=== PATIENT | male | born 1930 | race Caucasian/White ===

== ENCOUNTER → 2016-04-09 | Outpatient (CLI) | payer MEDICARE, OTHER | LOC: RAD 12:22 | PROVIDERS: ATTEND Internal Medicine Medical Oncology | DX: R91.8 Other nonspecific abnormal finding of lung field (principal) | CPT/HCPCS: 71250 ==

== ENCOUNTER → 2016-11-06 | Outpatient (CLI) | payer MEDICARE, OTHER ==
--- NOTE | 2016-11-06 12:38 | RADIOLOGY REPORT (SQ) ---
EXAM DESCRIPTION: CHEST PA/LATERAL COMPLETED DATE/TIME: 11/06/2016 11:58 am REASON FOR STUDY: OTHER NONSPECIFIC ABNORMAL FINDING OF LUNG FIELD COMPARISON: CT abdomen pelvis 11/08/2015 CT chest 02/11/2016, 04/09/2016 EXAM PARAMETERS: NUMBER OF VIEWS: two views TECHNIQUE: Digital Frontal and Lateral radiographic views of the chest acquired. RADIATION DOSE: NA LIMITATIONS: none FINDINGS: LUNGS AND PLEURA: Right middle lobe nodule, in the posterior right costophrenic sulcus see n on CT chest 04/09/2016 is difficult to visualize on the plain films today. In the right posterior costophrenic sulcus, a rounded area of consolidation is present likely round a telectasis. This is similar as compared to CT abdomen pelvis 11/08/2015. On the left side, minimal bandlike scarring or atelectasis is present. No fluffy alveolar infiltrates worrisome for edema or pneumonia. No pleural effusion. No pneumothor ax. MEDIASTINUM AND HILAR STRUCTURES: No masses or contour abnormalities. HEART AND VASCULAR STRUCTURES: Stable cardiomegaly BONES: No acute findings. HARDWARE: None in the chest. OTHER: No other significant finding. IMPRESSION: Right middle lobe nodule, right posterior costophrenic sulcus round atelectasis seen on prior cross-sectional imaging studies are not as well seen on two-view plain films. No acute infiltrates or pleural effusions. No pneumothorax. TECHNICAL DOCUMENTATION: JOB ID: [id number] [employer]- All Rights Reserved
== END ==
LOC: OD 11:30
PROVIDERS: ATTEND Internal Medicine Medical Oncology
DX: R91.8 Other nonspecific abnormal finding of lung field (principal)
CPT/HCPCS: 71020

== ENCOUNTER → 2016-11-25 | Outpatient (CLI) | payer MEDICARE, OTHER ==
--- NOTE | 2016-11-25 15:04 | RADIOLOGY REPORT (SQ) ---
EXAM DESCRIPTION: CT CHEST WITHOUT COMPLETED DATE/TIME: 11/25/2016 1:48 pm REASON FOR STUDY: SOLITARY PULMONARY NODULE (R91.1) R91.1 SOLITARY PULMONARY NODULE COMPARISON: CT abdomen pelvis 11/08/2015 CT chest 02/11/2016, 04/09/2016 TECHNIQUE: CT scan performed of the chest without intravenous contrast. Images reviewed with lung, soft tissue and bone windows. Reconstructed coronal and sagittal MPR images reviewed. All images st ored on PACS. All CT scanners at this facility use dose modulation, iterative reconstruction, and/or weight based d osing when appropriate to reduce radiation dose to as low as reasonably achievable (ALARA). [facility]: Dose Right [facility]: CareDose [facility]: Dose Right [facility]: Teradose 4D [facility]: [employer] RADIATION DOSE: Up-to-date CT equipment and radiation dose reduction techniques were employed. CTDIv ol: 14.1 mGy. DLP: 547 mGy-cm. mGy. LIMITATIONS: No technical limitations. FINDINGS: LUNGS AND PLEURA: There is now nodularity along the left major fissure axial image 65, lef t major fissure axial image 45, along the periphery of the posterior right upper lobe and superior se gment right lower lobe, and along the periphery of the pleura in the left lower posterior chest, new compared to previous exams. Stable rounded atelectasis in the right posterior costophrenic sulcus on axial image 92, 2.4 cm in gr eatest diameter. Stable 8 to 9 mm nodule along the right minor fissure axial image 66. Other smalle r calcified and noncalcified granulomas are present bilaterally, stable. No pleural effusion. No pneumothorax. Airways are patent. HILAR AND MEDIASTINAL STRUCTURES: No identified masses or abnormal nodes. No obvious aneurysm. HEART AND VASCULAR STRUCTURES: No aneurysm. No pericardial effusion. UPPER ABDOMEN: Post left nephrectomy THYROID AND OTHER SOFT TISSUES: No axillary adenopathy. Heterogeneous thyroid, stable BONES: No significant finding. HARDWARE: None in the chest. OTHER: No other significant findings. IMPRESSION: New nodules along the pleural surface left hemithorax. Given history of left nephrectom y, metastatic disease could not be excluded. Consider PET-CT for followup. TECHNICAL DOCUMENTATION: JOB ID: [id number] Quality ID # [id number]: Final reports with documentation of one or more dose reduction techniques (e.g., Au tomated exposure control, adjustment of the mA and/or kV according to patient size, use of iterative reconstruction technique) 2010 [employer]- All Rights Reserved
== END ==
LOC: RAD 13:02
PROVIDERS: ATTEND Urology
DX: R91.1 Solitary pulmonary nodule (principal)
CPT/HCPCS: 71250

== ENCOUNTER → 2016-11-26 | Outpatient (CLI) | payer MEDICARE, OTHER ==
--- NOTE | 2016-11-26 16:01 | RADIOLOGY REPORT (SQ) ---
EXAM DESCRIPTION: CT ABD/PELVIS WITH IV ONLY COMPLETED DATE/TIME: 11/26/2016 3:27 pm REASON FOR STUDY: PANCREATIC CYST/RENAL CYST N28.1 CYST OF KIDNEY, ACQUIRED COMPARISON: CT chest 11/25/2016, 04/09/2016, 02/11/2016 CT abdomen pelvis 11/08/2015 TECHNIQUE: CT scan of the abdomen and pelvis performed using helical scanning technique with dynamic intravenous contrast injection. No oral contrast. Images reviewed with lung, soft tissue, and bone windows. Reconstructed coronal and sagittal MPR images reviewed. Delayed images for evaluation of the urinary system also acquired. All images stored on PACS. All CT scanners at this facility use dose modulation, iterative reconstruction, and/or weight based d osing when appropriate to reduce radiation dose to as low as reasonably achievable (ALARA). [facility]: Dose Right [facility]: CareDose [facility]: Dose Right [facility]: Teradose 4D [facility]: [email or web address] CONTRAST TYPE AND DOSE: contrast/concentration: Isovue 370.00 mg/ml; Total Contrast Delivered: 39.0 ml; Total Saline Delivered: 62.0 ml RENAL FUNCTION: Creatinine 1.6 RADIATION DOSE: Up-to-date CT equipment and radiation dose reduction techniques were employed. CTDIv ol: 12.7 - 14.8 mGy. DLP: 1400 mGy-cm.. LIMITATIONS: None. FINDINGS: LOWER CHEST: No change from yesterday CT chest. New nodules along the lower hemithorax pl eural surface. Given history of left nephrectomy metastatic disease could not be excluded. LIVER: Normal size. No masses. No dilated ducts. SPLEEN: Normal size. No focal lesions. PANCREAS: No masses. No significant calcifications. No adjacent inflammation or peripancreatic fluid collections. Pancreatic duct not dilated. 16 mm cyst along the posterior aspect of the uncinate proc ess, 9 to 10 mm cyst along the ventral aspect of the uncinate. These findings are unchanged from 10/15. GALLBLADDER: No identified stones by CT criteria. No inflammatory changes to suggest cholecystitis. ADRENAL GLANDS: No significant masses or asymmetry. RIGHT KIDNEY AND URETER: No solid masses. Multiple nonenhancing cysts in the right kidney, the large st is 7 cm along the right lower pole. No significant calcifications. No hydronephrosis or hydrour eter. LEFT KIDNEY AND URETER: Post left nephrectomy. No recurrent masses in the left renal fossa AORTA AND VESSELS: No aneurysm. No dissection. Renal arteries, SMA, celiac without stenosis. RETROPERITONEUM: No retroperitoneal hemorrhage. Adjacent to the left proximal common iliac artery, a 2.3 x 1.4 cm lymph node is present (was 1.9 x 1.2 cm on 11/08/2015). BOWEL AND PERITONEAL CAVITY: No masses or inflammatory changes. No free fluid or peritoneal masses. APPENDIX: Normal. PELVIS: Lymph nodes as follows: right external iliac 2.1 x 1.6 cm lymph node is present on axial image 65 (was less than 1 cm on 10/15). left external iliac 2.8 x 2 cm lymph node is present (was 2.2 by 1.1 cm size on 11/08/2015). right inguinal 3.1 x 1.5 cm lymph node is present (was 2.2 x 0.8 cm on 11/08/2015). Left inguinal lymph node 2.9 x 1.4 cm (was 2.2 by 1 cm on 11/08/2015). ABDOMINAL WALL: No masses. No hernias. BONES: Advanced degenerative disc changes lower lumbar spine. Advanced facet arthropathy. Central c anal stenosis at L4-5. OTHER: No other significant finding. IMPRESSION: Stable pancreatic and right renal cysts. Increase in size of bilateral inguinal and bilateral external iliac and left internal iliac region ly mph nodes New pleural based nodules left lower hemithorax. TECHNICAL DOCUMENTATION: JOB ID: [id number] Quality ID # [id number]: Final reports with documentation of one or more dose reduction techniques (e.g., Au tomated exposure control, adjustment of the mA and/or kV according to patient size, use of iterative reconstruction technique) 2010 [employer]- All Rights Reserved
== END ==
LOC: RAD 14:29
PROVIDERS: ATTEND Urology
DX: N28.1 Cyst of kidney, acquired (principal)
CPT/HCPCS: 74177; 82565

== ENCOUNTER → 2016-12-21 | Outpatient (CLI) | payer MEDICARE, OTHER ==
--- NOTE | 2016-12-23 13:55 | RADIOLOGY REPORT (SQ) ---
EXAM DESCRIPTION: PET CT SKULL/THIGH COMPLETED DATE/TIME: 12/21/2016 8:31 pm REASON FOR STUDY: ABNORMAL FINDINGS OF LUNG FIELD R91.8 OTHER NONSPECIFIC ABNORMAL FINDING OF LUNG FIELD COMPARISON: CT chest 11/25/2016, 04/09/2016, 02/11/2016 CT abdomen pelvis 11/26/2016, 11/08/2015 RADIONUCLIDE AND DOSE: 10.5 mCi F18 FDG The route of agent administration: Intravenous FASTING BLOOD SUGAR: 97 mg/dl CONTRAST TYPE AND DOSE: No CT contrast given. TECHNIQUE: Blood glucose level was verified. Above dose of FDG was injected intravenously. 2-D seg mented attenuation correction images were obtained from the base of the skull to the midthighs. Nonc ontrast CT images were obtained for attenuation correction and fusion with emission images. CT image s were performed without oral or intravenous contrast and are not sensitive for parenchymal lesions. A series of overlapping emission PET images were obtained. Images reviewed and manipulated at [facility] work station by the radiologist. Images stored on PACS. LIMITATIONS: None. FINDINGS: HEAD AND NECK: No areas of abnormal metabolic activity in the soft tissues of the head and neck. CHEST: No hypermetabolic nodules are seen in the right hemithorax. A 2.4 cm soft tissue nodule in th e right posterior costophrenic sulcus unchanged from multiple previous studies is non metabolic and l ikely represents rounded atelectasis. 9 mm nodule in the medial right middle lobe axial image 102 is non metabolic. There is a trace left pleural effusion. There is minimal metabolic activity at baseline, along left posterior costophrenic sulcus pleura, and a 1.7 cm nodule along the inferior aspect left major fissur e image 100, and a posterior pleural-based nodule 12 mm size axial image 86. ABDOMEN AND PELVIS: Small pancreatic cyst along the ventral and dorsal aspects of the uncinate proces s are non metabolic. Non metabolic right renal cortical cyst 7 cm in diameter. No metabolic activit y along the left nephrectomy bed. Essentially non metabolic bilateral external iliac and inguinal lymph nodes are present, unchanged in size compared to 11/26/2016. PROXIMAL LOWER EXTREMITIES: No areas of abnormal metabolic activity in the soft tissues of the lower extremities. BONES: No abnormal metabolic activity in the visualized skeleton. ADDITIONAL CT FINDINGS: Cardiomegaly. Diffuse degenerative changes throughout the cervicothoracic an d lumbar spine. OTHER: Blood pool SUV 1.9. Liver SUV 2.1 IMPRESSION: No hypermetabolic lesions in the right hemithorax Trace left pleural effusion with lumpy pleural thickening along the left hemithorax. There is minima l baseline metabolic activity in these areas. Non metabolic bilateral mildly enlarged external iliac and inguinal lymph nodes. TECHNICAL DOCUMENTATION: JOB ID: [id number] [employer]- All Rights Reserved
== END ==
LOC: RAD 18:00
PROVIDERS: ATTEND Internal Medicine Medical Oncology
DX: R91.8 Other nonspecific abnormal finding of lung field (principal)
CPT/HCPCS: 78815; A9552

== ENCOUNTER → 2017-06-21 | Outpatient (CLI) | payer MEDICARE, OTHER ==
--- NOTE | 2017-06-22 08:56 | RADIOLOGY REPORT (SQ) ---
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 TECHNIQUE: Blood glucose level was verified. Above dose of FDG was injected intravenously. 2-D seg mented attenuation correction images were obtained from the base of the skull to the midthighs. Nonc ontrast CT images were obtained for attenuation correction and fusion with emission images. CT image s were performed without oral or intravenous contrast and are not sensitive for parenchymal lesions. A series of overlapping emission PET images were obtained. Images reviewed and manipulated at [facility] work station by the radiologist. Images stored on PACS. LIMITATIONS: None. FINDINGS: HEAD AND NECK: No areas of abnormal metabolic activity in the soft tissues of the head and neck. CHEST: On the right side, a stable 9 mm non metabolic middle lobe nodule and non metabolic 2.4 cm den sity in the right posterior costophrenic sulcus are present, unchanged. There is a trace right pleural effusion, new compared to previous exams. No metabolically active rig ht pleural nodules are identified. On the left side, a loculated moderate-sized left pleural effusion is present with multiple pleural-b ased nodules which exhibit metabolic activity as follows: 3.6 x 3 cm mass abutting the upper left mediastinum along the prevascular region, SUV 5.2 Left posterior costophrenic sulcus 9 x 2.4 cm soft tissue mass image 130, SUV 3.6 Left lateral costophrenic sulcus 2.8 x 2.5 cm nodule image 146, SUV 3.2 There is a new right hilar lymph node about 1 cm in size with SUV 6.3. ABDOMEN AND PELVIS: No areas of abnormal metabolic activity in the abdomen or pelvis. Expected physi ologic activity is present in the genitourinary system and bowel. PROXIMAL LOWER EXTREMITIES: No areas of abnormal metabolic activity in the soft tissues of the lower extremities. BONES: No abnormal metabolic activity in the visualized skeleton. ADDITIONAL CT FINDINGS: Benign cyst along the pancreatic head and right renal cortex. Old left nephr ectomy without recurrent nodules or abnormal metabolic activity. Cardiomegaly with pacemaker. Diffu se degenerative disc changes lumbar spine. OTHER: Liver background activity 1.96 SUV, blood pool background activity 1.7 SUV IMPRESSION: Loculated moderate left pleural effusion with partial collapse of the left lower lobe. There are now hypermetabolic masses along the pleural surface as above. New trace right pleural effusion without hypermetabolic pleural nodules New right hilar 1 cm hypermetabolic lymph node No metabolic activity over the left post nephrectomy fossa. TECHNICAL DOCUMENTATION: JOB ID: [id number] [employer]- All Rights Reserved Reading location - IP/workstation name: [email or web address]
== END ==
LOC: RAD 16:28
PROVIDERS: ATTEND Internal Medicine Medical Oncology
DX: C64.2 Malignant neoplasm of left kidney, except renal pelvis (principal); J90 Pleural effusion, not elsewhere classified
CPT/HCPCS: 78815; A9552

== ENCOUNTER 2017-07-01 08:52 | Inpatient (IN) | payer MEDICARE, OTHER ==
[2017-07-01 09:56] LABS: HEMATOCRIT 31.2 % (37.9-51.0); HEMOGLOBIN 9.9 g/dL (13.5-17.0); MEAN CORPUSCULAR HEMOGLOBIN 28.2 pg (27.0-33.4); MEAN CORPUSCULAR HGB CONC 31.7 g/dL (32.0-36.0); MEAN CORPUSCULAR VOLUME 89 fl (80-97); PLATELET COUNT 389 10^3/uL (150-450); RED BLOOD COUNT 3.51 10^6/uL (4.35-5.55); WHITE BLOOD COUNT 8.9 10^3/uL (4.0-10.5)
[2017-07-01 10:09] LABS: INTERNATIONAL RATION (INR) 1.09; PROTHROMBIN TIME 14.7 SEC (11.4-15.4)
[2017-07-01 10:10] LABS: PARTIAL THROMBOPLASTIN TIME 37.8 SEC (23.5-35.8)
[2017-07-01 10:12] LABS: BLOOD UREA NITROGEN 58 mg/dL (7-20)
[2017-07-01] MEDS ORDERED: LIDOCAINE 1% INJ-PF (10 MG/ML) 30 ML SDV ONE (10:41)
--- NOTE | 2017-07-01 12:27 | RADIOLOGY REPORT (SQ) ---
EXAM DESCRIPTION: CHEST SINGLE VIEW COMPLETED DATE/TIME: 07/01/2017 11:36 am REASON FOR STUDY: S/P LEFT THORACENTESIS COMPARISON: PET-CT 06/21/2017. No prior radiographs from recently. FINDINGS: Single-view chest, presumably upright but not labeled. AP image. Small left basilar hydropneumothorax. Small right pleural fluid. Bibasilar airspace disease, consolidation. IMPRESSION: Small left hydropneumothorax. TECHNICAL DOCUMENTATION: JOB ID: [id number] Reading location - IP/workstation name: [email or web address]
--- NOTE | 2017-07-01 14:57 | RADIOLOGY REPORT (SQ) ---
EXAM DESCRIPTION: CHEST SINGLE VIEW COMPLETED DATE/TIME: 07/01/2017 1:52 pm REASON FOR STUDY: 2 HOURS S/P LEFT THORACENTESIS COMPARISON: 07/01/2017 1132 hours EXAM PARAMETERS: NUMBER OF VIEWS: One view. TECHNIQUE: Single frontal radiographic view of the chest acquired. RADIATION DOSE: NA LIMITATIONS: None. FINDINGS: LUNGS AND PLEURA: Increase in left apical and basilar pneumothorax, now about 15%. Patien t is comfortable, maintaining O2 sats on 3 L of nasal cannula oxygen. We will obtain a 4 hour follow -up film to assess stability of the pneumothorax. No re-accumulation of left pleural fluid. Pleural based left sided nodules are evident. There is le ft basilar consolidation likely atelectasis. On the right side, a small pleural effusion and right middle and lower lobe airspace disease is prese nt, new compared to 06/21/2017. MEDIASTINUM AND HILAR STRUCTURES: No masses. Contour normal. HEART AND VASCULAR STRUCTURES: Stable mild cardiomegaly BONES: No acute findings. HARDWARE: None in the chest. OTHER: No other significant finding. IMPRESSION: Slight increase in left pneumothorax on 2 hour delayed post thoracentesis images. Follo w-up film in 2 more hours will be obtained. Right middle and lower lobe consolidation, increase compared to PET-CT on 06/21/2017. TECHNICAL DOCUMENTATION: JOB ID: [id number] [employer]- All Rights Reserved Reading location - IP/workstation name: [email or web address]
--- NOTE | 2017-07-01 15:11 | PDOC CONSULTATION ---
Consultation Consult Date: 07/01/17 Attending physician:: AMELIA LOCO Consult reason:: Pneumothorax left chest; malignant pleural effusion left chest History of Present Illness Admission Date/PCP: MIRIAM GARCÍA MD History of Present Illness: AISSATOU IVERSON is a 86 year old male The patient is an 86-year-old white male with history of COPD, metastatic renal cell carcinoma, with malignant left pleural effusion, and intra-parenchymal and pleural metastases, who underwent thoracentesis by Dr. Fransisca Palacios earlier today. 1.4 L of malignant effusion evacuated. Patient had a residual pneumothorax, 10% initially, which was followed by a chest x-ray 3 hours later showing an expansion to 20%. Patient has remained hemodynamically stable, and chronically short of breath, but clinically improved compared to prethoracentesis. Surgery was consulted for opinion regarding management of left pneumothorax, and malignant effusion. Past Medical History Cardiac Medical History: Reports: Atrial Fibrillation, Hypertension Denies: Coronary Artery Disease, Myocardial Infarction Pulmonary Medical History: Reports: Pneumonia Denies: Asthma, Bronchitis, Chronic Obstructive Pulmonary Disease (COPD) Neurological Medical History: Denies: Seizures Musculoskeltal Medical History: Reports: Arthritis - "a little bit" Hematology: Reports: Anemia - Currently on Iron Past Surgical History Past Surgical History: Reports: Other - Skin lesion from back removed Social History Smoking Status: Never Smoker Family History Family History: None Parental Family History Reviewed: Yes Children Family History Reviewed: Yes Sibling(s) Family History Reviewed.: Yes Medication/Allergy Home Medications: Amlodipine Besylate [Norvasc 10 mg Tablet] 10 mg PO DAILY 07/01/17 Clobetasol Propionate [Temovate 0.05% Cream 15 Gm] 1 applic TP DAILY 07/01/17 Finasteride 5 mg PO DAILY 07/01/17 Iron mg PO DAILY 07/01/17 Ketotifen Fumarate [Refresh] 5 ml OP DAILY 07/01/17 Latanoprost [Xalatan 0.005% Oph Soln 2.5 ml] 1 drop OP QHS 07/01/17 Levothyroxine Sodium [Tirosint] 25 mcg PO DAILY 07/01/17 Rivaroxaban [Xarelto 15 mg Tablet] 15 mg PO DAILY 07/01/17 Vit A/Vit C/Vit E/Zinc/Copper [Preservision Areds Tablet] 1 each PO DAILY Allergies/Adverse Reactions: No Known Allergies Allergy (Verified 07/01/17 09:20) Review of Systems ROS unobtainable: Other - Shortness of time interviewing patient Physical Exam Vital Signs: Temp Pulse Resp BP Pulse Ox 98.0 F 60 32 H 123/57 L 94 07/01/17 11:40 07/01/17 13:45 07/01/17 13:45 07/01/17 13:45 07/01/17 13:45 Intake & Output 06/30/17 07/01/17 07/02/17 06:59 06:59 06:59 Weight 99.79 kg General appearance: PRESENT: mild distress Head exam: PRESENT: normocephalic Eye exam: PRESENT: EOMI Neck exam: PRESENT: other - Left subclavian scar consistent with pacer placed 1 month ago. Respiratory exam: PRESENT: accessory muscle use - Accessory muscle utilization. Breath sounds are slightly decreased on the left., retraction, other - Obvious shortness of breath with accessory muscle Cardiovascular exam: PRESENT: RRR GI/Abdominal exam: PRESENT: other - Soft no peritoneal signs. Musculoskeletal exam: PRESENT: other - Marked lower extremity edema with lichenified tissue Psychiatric exam: PRESENT: appropriate affect Results Laboratory Results: 07/01/17 09:35 07/01/17 09:35 07/01/17 07/01/17 09:35 09:35 WBC 8.9 RBC 3.51 L Hgb 9.9 L Hct 31.2 L MCV 89 MCH 28.2 MCHC 31.7 L RDW 17.0 H Plt Count 389 BUN 58 H Creatinine 2.18 H Est GFR ( Amer) 35 L Est GFR (Non-Af Amer) 29 L Impressions: Chest X-Ray 07/01/17 00:00 IMPRESSION: Slight increase in left pneumothorax on 2 hour delayed post thoracentesis images. Follow-up film in 2 more hours will be obtained. Right middle and lower lobe consolidation, increase compared to PET-CT on 2017. Assessment & Plan - Diagnosis (1) Metastatic renal cell carcinoma to lung Qualifiers: Laterality: left Qualified Code(s): C78.02 - Secondary malignant neoplasm of left lung; C64.9 - Malignant neoplasm of unspecified kidney, except renal pelvis; C64.9 - Malignant neoplasm of unspecified kidney, except renal pelvis; C64.9 - Malignant neoplasm of unspecified kidney, except renal pelvis; C64.9 - Malignant neoplasm of unspecified kidney, except renal pelvis Is this a current diagnosis for this admission?: Yes Plan: Patient is a status post left thoracentesis with evacuation 1.4 L of malignant effusion for respiratory distress; clinically improved; procedure resulted in left pneumothorax, slightly expanded on serial chest x-ray. Recommendations: 1. Currently the patient feels better according to his report; reliability of patient's somewhat uncertain. There is no immediate indication for a chest tube insertion right now. 2. I suggest the patient be admitted to the hospitalist service for observation given his advanced age, uncertain social situation, and the acute pulmonary situation at hand. 3. I discussed the above with Dr. Nation, radiologist, as well as Dr. Villeda , surgical list today. If patient deteriorates clinically, will need an emergent chest tube. Ideally, we can bridge the patient over until tomorrow which time he may be a candidate for Pleurx catheter insertion. - Time Time Spent: 30 to 50 Minutes Smoking Cessation Education: 3 to 10 minutes Anticipated discharge: Home - Inpatient Certification Based on my medical assessment, after consideration of the patient's comorbidities, presenting symptoms, or acuity I expect that the services needed warrant INPATIENT care.: Yes I certify that my determination is in accordance with my understanding of Medicare's requirements for reasonable and necessary INPATIENT services [42 CFR 412.3e].: Yes Medical Necessity: Other - Repeat chest x-ray, possible chest tube insertion if pulmonary status deteriorates
--- NOTE | 2017-07-01 15:48 | RADIOLOGY REPORT (SQ) ---
EXAM DESCRIPTION: U/S THORACENTESIS WITH IMAGING COMPLETED DATE/TIME: 07/01/2017 11:24 am REASON FOR STUDY: PLEURAL EFFUSION R91.8 OTHER NONSPECIFIC ABNORMAL FINDING OF LUNG FIELD Z79.01 L RUDDY TERM (CURRENT) USE OF ANTICOAGULANTS COMPARISON: CT chest 11/25/2016 PET-CT 12/21/2016, 06/21/2017 LIMITATIONS: None. PROCEDURE: Procedure, risks, benefit, and alternative explained to patient who then gave written con sent. The posterior left chest wall was marked using ultrasound guidance. A time-out was called for correct marking verification. Chest prepped and draped using sterile technique. Local anesthesia ac hieved using 6 mL ml of 1% lidocaine injection. A 6fr Safe-T- Centesis set was introduced into the l eft posterior pleural space. Fluid was aspirated. The catheter was removed and the entry site was c overed with sterile bandage. Fluid was sent for cytology. Post procedure chest x-ray dictated separately shows a small left post procedure pneumothorax. Images acquired during the procedure were stored on PACS. FINDINGS: ENTRY SITE: Left posterior pleural space FLUID VOLUME: 1400 mL of cloudy serosanguineous fluid FLUID ANALYSIS: Yes, sent for cytology OTHER: Postprocedure chest film dictated separately shows a small left post procedure pneumothorax IMPRESSION: SUCCESSFUL THORACENTESIS USING ULTRASOUND GUIDANCE. COMMENT: Patient medication list reviewed: Yes- Quality ID# [id number]:Eligible professional attests to doc umenting in the medical record they obtained, updated, or reviewed the patient's current medications. TECHNICAL DOCUMENTATION: JOB ID: [id number] [employer]- All Rights Reserved Reading location - IP/workstation name: [email or web address]
--- NOTE | 2017-07-01 16:12 | RADIOLOGY REPORT (SQ) ---
EXAM DESCRIPTION: CHEST SINGLE VIEW COMPLETED DATE/TIME: 07/01/2017 3:41 pm REASON FOR STUDY: post thoracentesis- 4 HOUR FILM COMPARISON: 07/01/2017 at 1130 hours, 07/01/2017 1349 hours EXAM PARAMETERS: NUMBER OF VIEWS: One view. TECHNIQUE: Single frontal radiographic view of the chest acquired. RADIATION DOSE: NA LIMITATIONS: None. FINDINGS: LUNGS AND PLEURA: Further increase in left-sided apical pneumothorax, now about 20%. Find ings discussed with Dr. Villeda from surgery. Patient will be admitted through the hospitalist [facility], with left chest tube placed later today. Dense consolidation right middle and lower lobe, similar compared to films from earlier today, new co mpared to PET-CT 06/21/2017. MEDIASTINUM AND HILAR STRUCTURES: No masses. Contour normal. HEART AND VASCULAR STRUCTURES: Stable cardiomegaly BONES: No acute findings. HARDWARE: None in the chest. OTHER: No other significant finding. IMPRESSION: 20% left pneumothorax. Findings discussed with Dr. Villeda from surgery, who plans to p lace a small caliber left chest tube later today TECHNICAL DOCUMENTATION: JOB ID: [id number] [employer]- All Rights Reserved Reading location - IP/workstation name: [email or web address]
[2017-07-01] MEDS ORDERED: LIDOCAINE 0.5% INJ-PF (5 MG/ML) 50 ML SDV ONE (16:51)
--- NOTE | 2017-07-01 17:29 | Operative Report ---
Operative Report DATE OF SURGERY: 07/01/17 PREOPERATIVE DIAGNOSIS: Malignant left pleural effusion POSTOPERATIVE DIAGNOSIS: Same with 20% pneumothorax left chest OPERATION: Insertion of percutaneous Heimlich chest tube and interpretation of intraoperative chest x-ray SURGEON: BRANDON BOB ANESTHESIA: Local TISSUE REMOVED OR ALTERED: None COMPLICATIONS: None ESTIMATED BLOOD LOSS: Scant INTRAOPERATIVE FINDINGS: Below PROCEDURE: Patient was set in the upright position, left chest exposed. He was explained the planned procedure for chest tube insertion, Heimlich small caliber tube. He expresses understanding and agreed to proceed. Surgical plan surgical timeout conducted Left chest wall below the subclavian area was prepped and draped sterile fashion. Skin was anesthetized at ICS 6, including the intercostal tissues. A small mary was made skin with 11 blade, narrow Heimlich chest tube approximately 14-gauge was threaded into the left chest uneventfully. Trocar removed, chest tube to Pleur-evac suction. Air evacuated successfully. This tube secured to the skin with 0 silk suture, and dressing. OpSite applied. Approximately 150 cc of serosanguineous fluid drained from the left chest. Portable upright chest x-ray showed excellent position of the tube in the left lateral chest, with evacuation of pneumothorax. Patient tolerated procedure well. He was taken to the floor in stable condition. He maintained good saturations and heart
[2017-07-01] MEDS ORDERED: LEVALBUTEROL HCL NEB 1.25 MG/3 ML AMPUL NEB PRN (17:32)
--- NOTE | 2017-07-01 17:35 | RADIOLOGY REPORT (SQ) ---
EXAM DESCRIPTION: CHEST SINGLE VIEW COMPLETED DATE/TIME: 07/01/2017 5:21 pm REASON FOR STUDY: CHEST TUBE INSERTION COMPARISON: 07/01/2017 EXAM PARAMETERS: NUMBER OF VIEWS: One view. TECHNIQUE: Single frontal radiographic view of the chest acquired. RADIATION DOSE: NA LIMITATIONS: None. FINDINGS: LUNGS AND PLEURA: There has been interval decrease in size of the pneumothorax on the left status post placement of a chest tube. Bibasilar airspace consolidation is again identified and I c annot exclude an associated pleural effusion on the right MEDIASTINUM AND HILAR STRUCTURES: No masses. Contour normal. HEART AND VASCULAR STRUCTURES: The configuration of the heart and mediastinal structures is unchanged BONES: No acute findings. HARDWARE: Transvenous pacemaker is unchanged in position. Status post placement of a left-sided ches t tube. OTHER: No other significant finding. IMPRESSION: Interval decrease in size of the pneumothorax on the left status post placement of chest tube. Bibasilar airspace consolidation is again identified. I cannot exclude an associated right p leural effusion. Other findings as noted above. TECHNICAL DOCUMENTATION: JOB ID: [id number] [employer]- All Rights Reserved Reading location - IP/workstation name: [email or web address]
--- NOTE | 2017-07-01 17:47 | PDOC H&P ---
History of Present Illness Admission Date/PCP: 07/01/17 08:52 MIRIAM GARCÍA MD Oncologist: Dr. Sullivan Patient complains of: Shortness of breath cough fever History of Present Illness: AISSATOU IVERSON is a 86 year old male with Past medical history of Renal cell cancer status post left nephrectomy Multiple lung nodules Recurrent left-sided pleural effusions. Hypertension Hypothyroidism BPH Chronic anticoagulation with Xarelto for DVT prevention He was in the ambulatory surgical unit today to get a CT-guided lung biopsy. He was found to have a large left pleural effusion and was hypoxic on room air with sats in the 70s. A thoracentesis was performed with a drainage of 1400 cc of fluid. Postprocedure chest x-ray showed a small apical pneumothorax. He has been satting 91-93% on 3 L. Chest x-ray also showed new right upper lobe infiltrate. The patient reports 2 days of cough with expectoration fevers and chills and worsening shortness of breath. He had thoracentesis done in March and May of this year and [facility]. Plan is to put a left-sided chest tube and by the surgical service. Outpatient medications: Finasteride 5 mg daily Iron daily Norvasc 10 mg daily PreserVision daily Refresh daily Clobetasol cream daily Synthroid 25 mcg daily Xalatan 1 drop at bedtime Xarelto 15 mg daily PET scan done on June 21, 2017 showed moderate left pleural effusion with partial collapse of the left lower lobe with new hypermetabolic masses along the pleural surface Past Medical History Cardiac Medical History: Reports: Hypertension Denies: Coronary Artery Disease, Myocardial Infarction Pulmonary Medical History: Reports: Pneumonia Denies: Asthma, Bronchitis, Chronic Obstructive Pulmonary Disease (COPD) Neurological Medical History: Denies: Seizures Endocrine Medical History: Reports: Hypothyroidism Malignancy Medical History: Reports: Renal (Kidney) Cancer Musculoskeltal Medical History: Reports: Arthritis - "a little bit" Hematology: Reports: Anemia - Currently on Iron Past Surgical History Past Surgical History: Reports: Other - Skin lesion from back removed Social History Smoking Status: Former Smoker Frequency of Alcohol Use: None Family History Family History: Hypertension Parental Family History Reviewed: Yes Children Family History Reviewed: Yes Sibling(s) Family History Reviewed.: Yes Medication/Allergy Home Medications: Amlodipine Besylate [Norvasc 10 mg Tablet] 10 mg PO DAILY 07/01/17 Clobetasol Propionate [Temovate 0.05% Cream 15 Gm] 1 applic TP DAILY 07/01/17 Finasteride 5 mg PO DAILY 07/01/17 Iron mg PO DAILY 07/01/17 Ketotifen Fumarate [Refresh] 5 ml OP DAILY 07/01/17 Latanoprost [Xalatan 0.005% Oph Soln 2.5 ml] 1 drop OP QHS 07/01/17 Levothyroxine Sodium [Tirosint] 25 mcg PO DAILY 07/01/17 Rivaroxaban [Xarelto 15 mg Tablet] 15 mg PO DAILY 07/01/17 Vit A/Vit C/Vit E/Zinc/Copper [Preservision Areds Tablet] 1 each PO DAILY Allergies/Adverse Reactions: No Known Allergies Allergy (Verified 07/01/17 09:20) Review of Systems Constitutional: PRESENT: chills, fever(s) Eyes: ABSENT: visual disturbances Ears: ABSENT: hearing changes Nose, Mouth, and Throat: ABSENT: sore throat Cardiovascular: ABSENT: chest pain Respiratory: PRESENT: cough, dyspnea, sputum. ABSENT: hemoptysis Gastrointestinal: ABSENT: abdominal pain, diarrhea, vomiting Genitourinary: ABSENT: dysuria Musculoskeletal: ABSENT: deformity Integumentary: ABSENT: pruritus Neurological: ABSENT: focal weakness, syncope Psychiatric: ABSENT: hallucinations Endocrine: ABSENT: heat intolerance Hematologic/Lymphatic: ABSENT: easy bruising Physical Exam Vital Signs: Temp Pulse Resp BP Pulse Ox 98.0 F 59 L 28 H 111/50 L 95 07/01/17 11:40 07/01/17 16:15 07/01/17 16:15 07/01/17 16:15 07/01/17 16:15 Intake & Output 06/30/17 07/01/17 07/02/17 06:59 06:59 06:59 Weight 99.79 kg General appearance: PRESENT: mild distress, well-developed, well-nourished Head exam: PRESENT: normocephalic Eye exam: PRESENT: PERRLA. ABSENT: scleral icterus Ear exam: PRESENT: normal external ear exam Mouth exam: PRESENT: moist Neck exam: ABSENT: tenderness, tracheal deviation Respiratory exam: PRESENT: crackles, symmetrical, wheezes Cardiovascular exam: PRESENT: RRR GI/Abdominal exam: PRESENT: normal bowel sounds, soft. ABSENT: tenderness Rectal exam: PRESENT: deferred Extremities exam: PRESENT: pedal edema, other - chronic venous stasis changes bilateral lower extremities. ABSENT: calf tenderness Neurological exam: PRESENT: alert, awake, oriented to person, oriented to place , oriented to time Psychiatric exam: PRESENT: appropriate affect Skin exam: ABSENT: petechiae Results Laboratory Results: 07/01/17 09:35 07/01/17 09:35 07/01/17 07/01/17 09:35 09:35 WBC 8.9 RBC 3.51 L Hgb 9.9 L Hct 31.2 L MCV 89 MCH 28.2 MCHC 31.7 L RDW 17.0 H Plt Count 389 BUN 58 H Creatinine 2.18 H Est GFR ( Amer) 35 L Est GFR (Non-Af Amer) 29 L Impressions: Thoracentesis Ultrasound 07/01/17 00:00 IMPRESSION: SUCCESSFUL THORACENTESIS USING ULTRASOUND GUIDANCE. Chest X-Ray 07/01/17 15:30 IMPRESSION: 20% left pneumothorax. Findings discussed with Dr. Villeda from surgery, who plans to place a small caliber left chest tube later today Assessment & Plan - Diagnosis (1) Lung mass Is this a current diagnosis for this admission?: Yes Plan: management per Oncologist (2) Recurrent left pleural effusion Is this a current diagnosis for this admission?: Yes Plan: Chest tube per Surgeon (3) Right middle lobe pneumonia Is this a current diagnosis for this admission?: Yes Plan: Sputum culture, antibiotics (4) Hypertension Is this a current diagnosis for this admission?: Yes Plan: Monitor, continue Norvasc (5) BPH (benign prostatic hyperplasia) Is this a current diagnosis for this admission?: Yes Plan: Finasteride (6) DVT prophylaxis Is this a current diagnosis for this admission?: Yes Plan: Lovenox s/c - Time Time Spent: Greater than 70 Minutes - Inpatient Certification Medical Necessity: Significant Comorbidiites Make Outpatient Treatment Too Risky , Risk of Complication if Not Cared For in Hospital
[2017-07-01] MEDS ORDERED: CEFTRIAXONE 1 GM/D5W RTU 50 ML IV SCH (18:00)
[2017-07-01] MEDS ORDERED: ENOXAPARIN SODIUM INJ 30 MG/0.3 ML DISP.SYRIN SUBCUT ONE (20:00)
[2017-07-01] MEDS: LEVALBUTEROL HCL NEB 0.63 MG/3 ML AMPUL NEB SCH (21:12)
[2017-07-01] MEDS: GUAIFENESIN 600 MG TABLET.SA PO SCH (22:24)
[2017-07-01] MEDS: LATANOPROST 0.005% OPH SOLN 2.5 ML OP SCH (22:25)
[2017-07-01] MEDS: LACTOBACILLUS ACIDOPHILUS 250 MG TAB PO SCH (22:25)
[2017-07-01] MEDS: LEVOFLOXACIN 750 MG/D5W RTU 750 MG/150 ML RTUPB IV SCH (22:26)
[2017-07-01] MEDS: CEFTRIAXONE SODIUM 1,000 MG in NORMAL SALINE 100 ML IV SCH (23:55)
[2017-07-02] MEDS: LEVALBUTEROL HCL NEB 0.63 MG/3 ML AMPUL NEB SCH ×5 (00:26→20:36)
[2017-07-02] MEDS: LANSOPRAZOLE 15 MG TAB.RAP.DR PO SCH (05:49)
[2017-07-02 06:03] LABS: ABSOLUTE BASOPHILS # (AUTO) 0.1 10^3/uL (0.0-0.2); ABSOLUTE LYMPHOCYTES (AUTO) 0.9 10^3/uL (0.5-4.7); ABSOLUTE MONOCYTES (AUTO) 0.7 10^3/uL (0.1-1.4); ABSOLUTE NEUT (AUTO) 12.4 10^3/uL (1.7-8.2); BASOPHILS % (AUTO) 0.8 % (0-2); EOSINOPHILS % (AUTO) 0.3 % (0-6); HEMATOCRIT 32.4 % (37.9-51.0); HEMOGLOBIN 10.2 g/dL (13.5-17.0); LYMPHOCYTES % (AUTO) 6.4 % (13-45); MEAN CORPUSCULAR HEMOGLOBIN 28.1 pg (27.0-33.4); MEAN CORPUSCULAR HGB CONC 31.5 g/dL (32.0-36.0); MEAN CORPUSCULAR VOLUME 89 fl (80-97); MONOCYTES % (AUTO) 5.1 % (3-13); RED BLOOD COUNT 3.63 10^6/uL (4.35-5.55); RED CELL DISTRIBUTION WIDTH 16.6 % (11.5-14.0); SEGMENTED NEUTROPHILS % (AUTO) 87.4 % (42-78); TOTAL CELLS COUNTED % (AUTO) 100 %; WHITE BLOOD COUNT 14.2 10^3/uL (4.0-10.5)
[2017-07-02 06:31] LABS: PLATELET COUNT 358 10^3/uL (150-450)
[2017-07-02 06:53] LABS: ALANINE AMINOTRANSFERASE 26 U/L (21-72); ALKALINE PHOSPHATASE 106 U/L (38-126); ANION GAP 11 (5-19); ASPARTATE AMINO TRANSFERASE 19 U/L (17-59); BILIRUBIN,DIRECT 0.3 mg/dL (0.0-0.4); BILIRUBIN,TOTAL 0.3 mg/dL (0.2-1.3); BLOOD UREA NITROGEN 54 mg/dL (7-20); CALCIUM 8.8 mg/dL (8.4-10.2); CARBON DIOXIDE 28 mmol/L (22-30); CHLORIDE 109 mmol/L (98-107); GLUCOSE 114 mg/dL (75-110); PHOSPHORUS 3.5 mg/dL (2.5-4.5); POTASSIUM 4.8 mmol/L (3.6-5.0); SODIUM 148.3 mmol/L (137-145); TOTAL PROTEIN 5.8 g/dL (6.3-8.2)
[2017-07-02] MEDS ORDERED: LEVOTHYROXINE SODIUM 25 MCG PO SCH (10:00)
[2017-07-02] MEDS ORDERED: (PENDING PHARMACY ID) (Ketotifen Fumarate [Refresh] 5 ML) OP SCH (10:00)
[2017-07-02] MEDS ORDERED: AMLODIPINE BESYLATE 10 MG TABLET PO SCH ×2 (10:00)
[2017-07-02] MEDS ORDERED: (PENDING PHARMACY ID) (Vit A/Vit C/Vit E/Zinc/Copper [Preservision Areds Tablet] 1 EACH) PO SCH (10:00)
[2017-07-02] MEDS: LACTOBACILLUS ACIDOPHILUS 250 MG TAB PO SCH ×2 (10:24→22:49)
[2017-07-02] MEDS: CLOBETASOL PROPIONATE 0.05% CREAM 15 GM TP SCH (10:25)
[2017-07-02] MEDS: FINASTERIDE 5 MG TABLET PO SCH (10:25)
[2017-07-02] MEDS: GUAIFENESIN 600 MG TABLET.SA PO SCH ×2 (10:25→22:49)
[2017-07-02] MEDS: ENOXAPARIN SODIUM INJ 30 MG/0.3 ML DISP.SYRIN SUBCUT SCH (10:25)
--- NOTE | 2017-07-02 12:04 | PDOC PROGRESS REPORT ---
Subjective Progress Note for:: 07/02/17 Subjective:: Feels a bit better today. had trouble sleeping last night. We reviewed his diagnoses and plan of care extensively. Dr. Garcia consulted. Reason For Visit: R91.8 OTHER NONSPECIFIC ABNORMAL FINDING OF LUNG F Physical Exam Vital Signs: Temp Pulse Resp BP Pulse Ox 98.0 F 60 16 105/71 94 07/02/17 11:07 07/02/17 11:07 07/02/17 11:07 07/02/17 11:07 07/02/17 11:07 Pulse Oximeter Continuous Start: 07/01/17 17: 32 Freq: RTQ4 Status: Active Document 07/02/17 09:00 [facility] (Rec: 07/02/17 09:05 [facility] [email or web address]) Pulse Oximetry Assessment Oxygen Saturation (92-100) 94 Oxygen Flow Rate (L/min) 4 Oxygen Delivery Method Nasal Cannula Equipment Usage Equipment in Use Continuous SpO2 Machine # [id number] Intake & Output 07/01/17 07/02/17 07/03/17 06:59 06:59 06:59 Intake Total 1620 Output Total 750 0 Balance 870 0 Weight 87.1 kg General appearance: PRESENT: no acute distress Head exam: PRESENT: normocephalic Eye exam: PRESENT: PERRLA. ABSENT: scleral icterus Ear exam: PRESENT: normal external ear exam Mouth exam: PRESENT: moist Neck exam: ABSENT: carotid bruit, tenderness Respiratory exam: PRESENT: symmetrical, other - Crackles R base, decreased breath sounds Left base. ABSENT: tachypnea Cardiovascular exam: PRESENT: RRR GI/Abdominal exam: PRESENT: normal bowel sounds, soft. ABSENT: tenderness Rectal exam: PRESENT: deferred Extremities exam: PRESENT: other - chronic venous stasis changes bilateral legs. ABSENT: calf tenderness, pedal edema Neurological exam: PRESENT: alert, awake, oriented to person, oriented to place , oriented to time, oriented to situation Psychiatric exam: PRESENT: appropriate affect Skin exam: ABSENT: petechiae Results Laboratory Results: 07/02/17 05:09 07/02/17 06:31 07/02/17 07/02/17 07/02/17 05:09 05:09 05:09 WBC 14.2 H RBC 3.63 L Hgb 10.2 L Hct 32.4 L MCV 89 MCH 28.1 MCHC 31.5 L RDW 16.6 H Plt Count 358 Seg Neutrophils % 87.4 H Lymphocytes % 6.4 L Monocytes % 5.1 Eosinophils % 0.3 Basophils % 0.8 Absolute Neutrophils 12.4 H Absolute Lymphocytes 0.9 Absolute Monocytes 0.7 Absolute Eosinophils 0.0 Absolute Basophils 0.1 Sodium Cancelled Potassium Cancelled Chloride Cancelled Carbon Dioxide Cancelled Anion Gap Cancelled BUN Cancelled Creatinine Cancelled Est GFR ( Amer) Cancelled Est GFR (Non-Af Amer) Cancelled Glucose Cancelled Calcium Cancelled Phosphorus Cancelled Magnesium Cancelled Total Bilirubin Cancelled AST Cancelled ALT Cancelled Alkaline Phosphatase Cancelled Total Protein Cancelled Albumin Cancelled TSH Cancelled 07/02/17 07/02/17 06:31 06:31 WBC RBC Hgb Hct MCV MCH MCHC RDW Plt Count Seg Neutrophils % Lymphocytes % Monocytes % Eosinophils % Basophils % Absolute Neutrophils Absolute Lymphocytes Absolute Monocytes Absolute Eosinophils Absolute Basophils Sodium 148.3 H Potassium 4.8 Chloride 109 H Carbon Dioxide 28 Anion Gap 11 BUN 54 H Creatinine 1.88 H Est GFR ( Amer) 41 L Est GFR (Non-Af Amer) 34 L Glucose 114 H Calcium 8.8 Phosphorus 3.5 Magnesium 2.7 H Total Bilirubin 0.3 AST 19 ALT 26 Alkaline Phosphatase 106 Total Protein 5.8 L Albumin 3.0 L TSH 3.78 07/02/17 07/02/17 05:09 06:31 NT-Pro-B Natriuret Pep Cancelled 8420 H Impressions: Thoracentesis Ultrasound 07/01/17 00:00 IMPRESSION: SUCCESSFUL THORACENTESIS USING ULTRASOUND GUIDANCE. Chest X-Ray 07/01/17 15:30 IMPRESSION: 20% left pneumothorax. Findings discussed with Dr. Villeda from surgery, who plans to place a small caliber left chest tube later today Assessment & Plan - Diagnosis (1) Lung mass Is this a current diagnosis for this admission?: Yes Plan: ? metastatic renal cancer. Management per Oncologist (2) Recurrent left pleural effusion Is this a current diagnosis for this admission?: Yes Plan: Chest tube management by surgical service. Plan for Pleurx drain on discharge. (3) Right middle lobe pneumonia Is this a current diagnosis for this admission?: Yes Plan: Sputum culture, day 2 of Rocephin and Levaquin. (4) Hypertension Is this a current diagnosis for this admission?: Yes Plan: Monitor, continue Norvasc (5) BPH (benign prostatic hyperplasia) Is this a current diagnosis for this admission?: Yes Plan: Finasteride (6) DVT prophylaxis Is this a current diagnosis for this admission?: Yes Plan: Lovenox s/c (7) Insomnia Is this a current diagnosis for this admission?: Yes Plan: Melatonin and temazepam at bedtime. - Time Time Spent with patient: 35 or more minutes
--- NOTE | 2017-07-02 17:13 | RADIOLOGY REPORT (SQ) ---
EXAM DESCRIPTION: CHEST SINGLE VIEW COMPLETED DATE/TIME: 07/02/2017 5:01 pm REASON FOR STUDY: follow up lft pneumothorax COMPARISON: None. EXAM PARAMETERS: NUMBER OF VIEWS: One view. TECHNIQUE: Single frontal radiographic view of the chest acquired. RADIATION DOSE: NA LIMITATIONS: None. FINDINGS: LUNGS AND PLEURA: No definite residual pneumothorax on the left is identified. Previously described bibasilar densities appear essentially unchanged. MEDIASTINUM AND HILAR STRUCTURES: No masses. Contour normal. HEART AND VASCULAR STRUCTURES: Cardiac silhouette is partially obscured but appears unchanged BONES: No acute findings. HARDWARE: Left chest tube is unchanged in position. Transvenous pacemaker is unchanged in position OTHER: No other significant finding. IMPRESSION: No definite residual pneumothorax on the left is identified. Bibasilar densities appear essentially unchanged. Other findings as noted above TECHNICAL DOCUMENTATION: JOB ID: [id number]- All Rights Reserved Reading location - IP/workstation name: [email or web address]
[2017-07-02] MEDS: MELATONIN 5 MG TABLET PO SCH (22:48)
[2017-07-02] MEDS: TEMAZEPAM 7.5 MG CAPSULE PO SCH (22:48)
[2017-07-02] MEDS: LATANOPROST 0.005% OPH SOLN 2.5 ML OP SCH (23:02)
[2017-07-02] MEDS: CEFTRIAXONE SODIUM 1,000 MG in NORMAL SALINE 100 ML IV SCH (23:07)
--- NOTE | 2017-07-03 01:22 | PDOC PROGRESS REPORT ---
Subjective Progress Note for:: 07/02/17 Subjective:: no pains Reason For Visit: R91.8 OTHER NONSPECIFIC ABNORMAL FINDING OF LUNG F Physical Exam Vital Signs: Temp Pulse Resp BP Pulse Ox 98.0 F 60 20 125/89 H 89 L 07/02/17 20:37 07/02/17 20:37 07/02/17 20:37 07/02/17 20:37 07/02/17 20:37 Pulse Oximeter Continuous Start: 07/01/17 17: 32 Freq: RTQ4 Status: Active Document 07/02/17 20:35 [facility] (Rec: 07/02/17 21:18 [facility] [email or web address]) Pulse Oximetry Assessment Oxygen Saturation (92-100) 94 Oxygen Flow Rate (L/min) 4 Oxygen Delivery Method Nasal Cannula Equipment Usage Equipment in Use Continuous SpO2 Machine # 14 Intake & Output 07/01/17 07/02/17 07/03/17 06:59 06:59 06:59 Intake Total 1620 978 Output Total 750 225 Balance 870 753 Weight 87.1 kg Exam: left chest tube with no air leak Results Laboratory Results: 07/02/17 05:09 07/02/17 06:31 07/02/17 07/02/17 07/02/17 05:09 05:09 05:09 WBC 14.2 H RBC 3.63 L Hgb 10.2 L Hct 32.4 L MCV 89 MCH 28.1 MCHC 31.5 L RDW 16.6 H Plt Count 358 Seg Neutrophils % 87.4 H Lymphocytes % 6.4 L Monocytes % 5.1 Eosinophils % 0.3 Basophils % 0.8 Absolute Neutrophils 12.4 H Absolute Lymphocytes 0.9 Absolute Monocytes 0.7 Absolute Eosinophils 0.0 Absolute Basophils 0.1 Sodium Cancelled Potassium Cancelled Chloride Cancelled Carbon Dioxide Cancelled Anion Gap Cancelled BUN Cancelled Creatinine Cancelled Est GFR ( Amer) Cancelled Est GFR (Non-Af Amer) Cancelled Glucose Cancelled Calcium Cancelled Phosphorus Cancelled Magnesium Cancelled Total Bilirubin Cancelled AST Cancelled ALT Cancelled Alkaline Phosphatase Cancelled Total Protein Cancelled Albumin Cancelled TSH Cancelled 07/02/17 07/02/17 06:31 06:31 WBC RBC Hgb Hct MCV MCH MCHC RDW Plt Count Seg Neutrophils % Lymphocytes % Monocytes % Eosinophils % Basophils % Absolute Neutrophils Absolute Lymphocytes Absolute Monocytes Absolute Eosinophils Absolute Basophils Sodium 148.3 H Potassium 4.8 Chloride 109 H Carbon Dioxide 28 Anion Gap 11 BUN 54 H Creatinine 1.88 H Est GFR ( Amer) 41 L Est GFR (Non-Af Amer) 34 L Glucose 114 H Calcium 8.8 Phosphorus 3.5 Magnesium 2.7 H Total Bilirubin 0.3 AST 19 ALT 26 Alkaline Phosphatase 106 Total Protein 5.8 L Albumin 3.0 L TSH 3.78 07/02/17 07/02/17 05:09 06:31 NT-Pro-B Natriuret Pep Cancelled 8420 H Impressions: Thoracentesis Ultrasound 07/01/17 00:00 IMPRESSION: SUCCESSFUL THORACENTESIS USING ULTRASOUND GUIDANCE. Chest X-Ray 07/02/17 00:00 IMPRESSION: No definite residual pneumothorax on the left is identified. Bibasilar densities appear essentially unchanged. Other findings as noted above Assessment & Plan - Time Time Spent with patient: 15-24 minutes - Plan Summary Plan Summary: Plan to d/c left chest tube if no pneumo on cxRay tomorrow.
[2017-07-03] MEDS: LEVOTHYROXINE SODIUM 0.025 MG TABLET PO SCH (07:03)
[2017-07-03] MEDS: LANSOPRAZOLE 15 MG TAB.RAP.DR PO SCH (07:03)
[2017-07-03] MEDS: LEVALBUTEROL HCL NEB 0.63 MG/3 ML AMPUL NEB SCH ×4 (08:01→19:44)
[2017-07-03 08:11] LABS: ABSOLUTE EOSINOPHILS # (AUTO) 0.1 10^3/uL (0.0-0.6); ABSOLUTE LYMPHOCYTES (AUTO) 0.8 10^3/uL (0.5-4.7); ABSOLUTE MONOCYTES (AUTO) 0.5 10^3/uL (0.1-1.4); ABSOLUTE NEUT (AUTO) 7.5 10^3/uL (1.7-8.2); BASOPHILS % (AUTO) 0.5 % (0-2); EOSINOPHILS % (AUTO) 0.9 % (0-6); HEMATOCRIT 31.4 % (37.9-51.0); HEMOGLOBIN 9.9 g/dL (13.5-17.0); LYMPHOCYTES % (AUTO) 8.6 % (13-45); MEAN CORPUSCULAR HEMOGLOBIN 28.3 pg (27.0-33.4); MEAN CORPUSCULAR HGB CONC 31.6 g/dL (32.0-36.0); MEAN CORPUSCULAR VOLUME 89 fl (80-97); PLATELET COUNT 362 10^3/uL (150-450); RED CELL DISTRIBUTION WIDTH 16.8 % (11.5-14.0); TOTAL CELLS COUNTED % (AUTO) 100 %
[2017-07-03 08:20] LABS: ALANINE AMINOTRANSFERASE 25 U/L (21-72); ALBUMIN 2.9 g/dL (3.5-5.0); ALKALINE PHOSPHATASE 104 U/L (38-126); ANION GAP 9 (5-19); ASPARTATE AMINO TRANSFERASE 17 U/L (17-59); BILIRUBIN,DIRECT 0.2 mg/dL (0.0-0.4); BILIRUBIN,TOTAL 0.2 mg/dL (0.2-1.3); BLOOD UREA NITROGEN 43 mg/dL (7-20); CARBON DIOXIDE 31 mmol/L (22-30); CHLORIDE 107 mmol/L (98-107); GLUCOSE 108 mg/dL (75-110); POTASSIUM 5.1 mmol/L (3.6-5.0); SODIUM 146.8 mmol/L (137-145); TOTAL PROTEIN 5.6 g/dL (6.3-8.2)
[2017-07-03] MEDS: CLOBETASOL PROPIONATE 0.05% CREAM 15 GM TP SCH (09:42)
[2017-07-03] MEDS: LACTOBACILLUS ACIDOPHILUS 250 MG TAB PO SCH ×2 (09:42→22:32)
[2017-07-03] MEDS: GUAIFENESIN 600 MG TABLET.SA PO SCH ×2 (09:42→22:32)
[2017-07-03] MEDS: AMLODIPINE BESYLATE 5 MG TABLET PO SCH (09:42)
[2017-07-03] MEDS: FINASTERIDE 5 MG TABLET PO SCH (09:43)
[2017-07-03] MEDS: ENOXAPARIN SODIUM INJ 30 MG/0.3 ML DISP.SYRIN SUBCUT SCH (09:43)
--- NOTE | 2017-07-03 14:13 | PDOC PROGRESS REPORT ---
Subjective Progress Note for:: 07/03/17 Subjective:: This is a 86 years old male patient admitted for shortness of breath. She denies history of lincomycin and recurrent pleural effusion for which chest tube inserted and it is draining. This morning I seen patient while he is resting in bed. He is awake alert and oriented. He reports this is shortness of breath is relatively improving. Reason For Visit: R91.8 OTHER NONSPECIFIC ABNORMAL FINDING OF LUNG F Physical Exam Vital Signs: Temp Pulse Resp BP Pulse Ox 97.8 F 70 17 132/51 H 96 07/03/17 11:38 07/03/17 11:57 07/03/17 11:57 07/03/17 11:38 07/03/17 11:57 Pulse Oximeter Continuous Start: 07/01/17 17: 32 Freq: RTQ4 Status: Active Document 07/03/17 11:57 [facility] (Rec: 07/03/17 12:55 [facility] [email or web address]) Pulse Oximetry Assessment Oxygen Saturation (92-100) 96 Oxygen Flow Rate (L/min) 4 Oxygen Delivery Method Nasal Cannula Equipment Usage Equipment in Use Continuous SpO2 Machine # 14 Intake & Output 07/02/17 07/03/17 07/04/17 06:59 06:59 06:59 Intake Total 1620 1615 Output Total 750 225 Balance 870 1390 Weight 87.1 kg 80.2 kg General appearance: PRESENT: mild distress Head exam: PRESENT: atraumatic, normocephalic Respiratory exam: PRESENT: decreased breath sounds - Left lung GI/Abdominal exam: PRESENT: normal bowel sounds, soft. ABSENT: distended, guarding, mass, organolmegaly, rebound, tenderness Results Laboratory Results: 07/03/17 07:20 07/03/17 07:20 07/03/17 07/03/17 07:20 07:20 WBC 9.0 RBC 3.50 L Hgb 9.9 L Hct 31.4 L MCV 89 MCH 28.3 MCHC 31.6 L RDW 16.8 H Plt Count 362 Seg Neutrophils % 84.0 H Lymphocytes % 8.6 L Monocytes % 6.0 Eosinophils % 0.9 Basophils % 0.5 Absolute Neutrophils 7.5 Absolute Lymphocytes 0.8 Absolute Monocytes 0.5 Absolute Eosinophils 0.1 Absolute Basophils 0.0 Sodium 146.8 H Potassium 5.1 H Chloride 107 Carbon Dioxide 31 H Anion Gap 9 BUN 43 H Creatinine 1.75 H Est GFR ( Amer) 45 L Est GFR (Non-Af Amer) 37 L Glucose 108 Calcium 9.0 Magnesium 2.7 H Total Bilirubin 0.2 AST 17 ALT 25 Alkaline Phosphatase 104 Total Protein 5.6 L Albumin 2.9 L 07/02/17 07/02/17 05:09 06:31 NT-Pro-B Natriuret Pep Cancelled 8420 H Impressions: Thoracentesis Ultrasound 07/01/17 00:00 IMPRESSION: SUCCESSFUL THORACENTESIS USING ULTRASOUND GUIDANCE. Chest X-Ray 07/02/17 00:00 IMPRESSION: No definite residual pneumothorax on the left is identified. Bibasilar densities appear essentially unchanged. Other findings as noted above Assessment & Plan - Diagnosis (1) BPH (benign prostatic hyperplasia) Is this a current diagnosis for this admission?: Yes Plan: Continue finasteride (2) Hypertension Is this a current diagnosis for this admission?: Yes (3) Lung mass Is this a current diagnosis for this admission?: Yes Plan: Per his primary oncologist (4) Recurrent left pleural effusion Is this a current diagnosis for this admission?: Yes Plan: Chest tube inserted and draining. (5) Right middle lobe pneumonia Qualifiers: Pneumonia type: due to unspecified organism Qualified Code(s): J18.1 - Lobar pneumonia, unspecified organism Is this a current diagnosis for this admission?: Yes Plan: The patient has been on Levaquin. His original complaint ceftriaxone was Levaquin so I DC the ceftriaxone and continue with the Levaquin.
--- NOTE | 2017-07-03 16:31 | PDOC PROGRESS REPORT ---
Subjective Progress Note for:: 07/03/17 Subjective:: no pains Reason For Visit: R91.8 OTHER NONSPECIFIC ABNORMAL FINDING OF LUNG F Physical Exam Vital Signs: Temp Pulse Resp BP Pulse Ox 97.5 F 62 20 124/44 L 92 07/03/17 15:42 07/03/17 15:42 07/03/17 15:42 07/03/17 15:42 07/03/17 15:42 Pulse Oximeter Continuous Start: 07/01/17 17: 32 Freq: RTQ4 Status: Active Document 07/03/17 11:57 [facility] (Rec: 07/03/17 12:55 [facility] [email or web address]) Pulse Oximetry Assessment Oxygen Saturation (92-100) 96 Oxygen Flow Rate (L/min) 4 Oxygen Delivery Method Nasal Cannula Equipment Usage Equipment in Use Continuous SpO2 Machine # 14 Intake & Output 07/02/17 07/03/17 07/04/17 06:59 06:59 06:59 Intake Total 1620 1615 Output Total 750 225 Balance 870 1390 Weight 87.1 kg 80.2 kg Exam: Chest tube no air leak but draining serous light yellow fluid. Total drainage about 200 ccs and drained at least 20 ccs this am. Results Laboratory Results: 07/03/17 07:20 07/03/17 07:20 07/03/17 07/03/17 07:20 07:20 WBC 9.0 RBC 3.50 L Hgb 9.9 L Hct 31.4 L MCV 89 MCH 28.3 MCHC 31.6 L RDW 16.8 H Plt Count 362 Seg Neutrophils % 84.0 H Lymphocytes % 8.6 L Monocytes % 6.0 Eosinophils % 0.9 Basophils % 0.5 Absolute Neutrophils 7.5 Absolute Lymphocytes 0.8 Absolute Monocytes 0.5 Absolute Eosinophils 0.1 Absolute Basophils 0.0 Sodium 146.8 H Potassium 5.1 H Chloride 107 Carbon Dioxide 31 H Anion Gap 9 BUN 43 H Creatinine 1.75 H Est GFR ( Amer) 45 L Est GFR (Non-Af Amer) 37 L Glucose 108 Calcium 9.0 Magnesium 2.7 H Total Bilirubin 0.2 AST 17 ALT 25 Alkaline Phosphatase 104 Total Protein 5.6 L Albumin 2.9 L 07/02/17 07/02/17 05:09 06:31 NT-Pro-B Natriuret Pep Cancelled 8420 H Impressions: Thoracentesis Ultrasound 07/01/17 00:00 IMPRESSION: SUCCESSFUL THORACENTESIS USING ULTRASOUND GUIDANCE. Chest X-Ray 07/02/17 00:00 IMPRESSION: No definite residual pneumothorax on the left is identified. Bibasilar densities appear essentially unchanged. Other findings as noted above Assessment & Plan - Time Time Spent with patient: 15-24 minutes - Plan Summary Plan Summary: Continue to leave Left chest tube for now and continue monitor drainage. May need pleurex cath.
[2017-07-03] MEDS ORDERED: CEFTRIAXONE SODIUM 1,000 MG in DEXTROSE 5%-WATER 50 ML IV SCH (22:00)
[2017-07-03] MEDS: TEMAZEPAM 7.5 MG CAPSULE PO SCH (22:33)
[2017-07-03] MEDS: LATANOPROST 0.005% OPH SOLN 2.5 ML OP SCH (22:34)
[2017-07-03] MEDS: MELATONIN 5 MG TABLET PO SCH (22:40)
[2017-07-04] MEDS ORDERED: VANCOMYCIN HCL INJ 1000 MG VIAL ONE (00:30)
[2017-07-04] MEDS ORDERED: VANCOMYCIN HCL INJ 500 MG VIAL ONE (00:30)
[2017-07-04] MEDS ORDERED: LEVOFLOXACIN 750 MG/D5W RTU 750 MG/150 ML RTUPB IV ONE (00:31)
[2017-07-04] MEDS: LEVOFLOXACIN 750 MG/D5W RTU 750 MG/150 ML RTUPB IV SCH (02:04)
[2017-07-04] MEDS: LANSOPRAZOLE 15 MG TAB.RAP.DR PO SCH (06:55)
[2017-07-04] MEDS: LEVOTHYROXINE SODIUM 0.025 MG TABLET PO SCH (06:56)
[2017-07-04 07:01] LABS: ABSOLUTE BASOPHILS # (AUTO) 0.1 10^3/uL (0.0-0.2); ABSOLUTE EOSINOPHILS # (AUTO) 0.1 10^3/uL (0.0-0.6); ABSOLUTE LYMPHOCYTES (AUTO) 0.7 10^3/uL (0.5-4.7); ABSOLUTE MONOCYTES (AUTO) 0.6 10^3/uL (0.1-1.4); ABSOLUTE NEUT (AUTO) 8.1 10^3/uL (1.7-8.2); BASOPHILS % (AUTO) 0.7 % (0-2); EOSINOPHILS % (AUTO) 1.5 % (0-6); HEMOGLOBIN 9.3 g/dL (13.5-17.0); LYMPHOCYTES % (AUTO) 7.2 % (13-45); MEAN CORPUSCULAR HEMOGLOBIN 28.4 pg (27.0-33.4); MEAN CORPUSCULAR VOLUME 89 fl (80-97); MONOCYTES % (AUTO) 6.4 % (3-13); PLATELET COUNT 327 10^3/uL (150-450); RED BLOOD COUNT 3.28 10^6/uL (4.35-5.55); RED CELL DISTRIBUTION WIDTH 16.1 % (11.5-14.0); SEGMENTED NEUTROPHILS % (AUTO) 84.2 % (42-78); TOTAL CELLS COUNTED % (AUTO) 100 %; WHITE BLOOD COUNT 9.6 10^3/uL (4.0-10.5)
[2017-07-04 07:20] LABS: ALANINE AMINOTRANSFERASE 29 U/L (21-72); ALBUMIN 2.7 g/dL (3.5-5.0); ALKALINE PHOSPHATASE 104 U/L (38-126); ANION GAP 11 (5-19); ASPARTATE AMINO TRANSFERASE 21 U/L (17-59); BILIRUBIN,DIRECT 0.2 mg/dL (0.0-0.4); BILIRUBIN,TOTAL 0.2 mg/dL (0.2-1.3); BLOOD UREA NITROGEN 41 mg/dL (7-20); CALCIUM 8.6 mg/dL (8.4-10.2); CARBON DIOXIDE 29 mmol/L (22-30); CHLORIDE 107 mmol/L (98-107); GLUCOSE 115 mg/dL (75-110); POTASSIUM 5.1 mmol/L (3.6-5.0); SODIUM 146.7 mmol/L (137-145); TOTAL PROTEIN 5.7 g/dL (6.3-8.2)
[2017-07-04] MEDS: LEVALBUTEROL HCL NEB 0.63 MG/3 ML AMPUL NEB SCH ×4 (08:17→20:32)
[2017-07-04] MEDS: GUAIFENESIN 600 MG TABLET.SA PO SCH ×2 (10:56→22:46)
[2017-07-04] MEDS: ENOXAPARIN SODIUM INJ 30 MG/0.3 ML DISP.SYRIN SUBCUT SCH (10:56)
[2017-07-04] MEDS: LACTOBACILLUS ACIDOPHILUS 250 MG TAB PO SCH ×2 (10:57→22:46)
[2017-07-04] MEDS: CLOBETASOL PROPIONATE 0.05% CREAM 15 GM TP SCH (10:57)
[2017-07-04] MEDS: AMLODIPINE BESYLATE 5 MG TABLET PO SCH (10:57)
[2017-07-04] MEDS: FINASTERIDE 5 MG TABLET PO SCH (10:58)
--- NOTE | 2017-07-04 13:06 | PDOC PROGRESS REPORT ---
Subjective Progress Note for:: 07/04/17 Subjective:: Today patient is awake alert and oriented. I see him while he is sitting on the bedside. I tried to explain for him about his diagnosis. Otherwise patient he eats well and he tolerates well. He does not have any nausea vomiting abdominal pain or diarrhea. Reason For Visit: R91.8 OTHER NONSPECIFIC ABNORMAL FINDING OF LUNG F Physical Exam Vital Signs: Temp Pulse Resp BP Pulse Ox 97.5 F 61 20 114/44 L 92 07/04/17 08:23 07/04/17 08:23 07/04/17 08:23 07/04/17 08:23 07/04/17 08:23 Pulse Oximeter Continuous Start: 07/01/17 17: 32 Freq: RTQ4 Status: Active Document 07/04/17 08:17 HCR (Rec: 07/04/17 10:23 HCR [email or web address]) Pulse Oximetry Assessment Oxygen Saturation (92-100) 97 Oxygen Flow Rate (L/min) 4 Oxygen Delivery Method Nasal Cannula Equipment Usage Equipment in Use Continuous SpO2 Machine # 14 Intake & Output 07/03/17 07/04/17 07/05/17 06:59 06:59 06:59 Intake Total 1615 1466 Output Total 225 Balance 1390 1466 Weight 80.2 kg 81 kg Results Laboratory Results: 07/04/17 06:53 07/04/17 06:53 07/04/17 07/04/17 06:53 06:53 WBC 9.6 RBC 3.28 L Hgb 9.3 L Hct 29.0 L MCV 89 MCH 28.4 MCHC 32.0 RDW 16.1 H Plt Count 327 Seg Neutrophils % 84.2 H Lymphocytes % 7.2 L Monocytes % 6.4 Eosinophils % 1.5 Basophils % 0.7 Absolute Neutrophils 8.1 Absolute Lymphocytes 0.7 Absolute Monocytes 0.6 Absolute Eosinophils 0.1 Absolute Basophils 0.1 Sodium 146.7 H Potassium 5.1 H Chloride 107 Carbon Dioxide 29 Anion Gap 11 BUN 41 H Creatinine 1.66 H Est GFR ( Amer) 48 L Est GFR (Non-Af Amer) 40 L Glucose 115 H Calcium 8.6 Magnesium 2.8 H Total Bilirubin 0.2 AST 21 ALT 29 Alkaline Phosphatase 104 Total Protein 5.7 L Albumin 2.7 L 07/02/17 07/02/17 05:09 06:31 NT-Pro-B Natriuret Pep Cancelled 8420 H Impressions: Thoracentesis Ultrasound 07/01/17 00:00 IMPRESSION: SUCCESSFUL THORACENTESIS USING ULTRASOUND GUIDANCE. Chest X-Ray 07/02/17 00:00 IMPRESSION: No definite residual pneumothorax on the left is identified. Bibasilar densities appear essentially unchanged. Other findings as noted above Assessment & Plan - Diagnosis (1) BPH (benign prostatic hyperplasia) Is this a current diagnosis for this admission?: Yes Plan: Continue finasteride (2) Hypertension Is this a current diagnosis for this admission?: Yes Plan: Continue current medication (3) Lung mass Is this a current diagnosis for this admission?: Yes Plan: Per his primary oncologist (4) Recurrent left pleural effusion Is this a current diagnosis for this admission?: Yes Plan: Chest tube inserted and draining. (5) Right middle lobe pneumonia Qualifiers: Pneumonia type: due to unspecified organism Qualified Code(s): J18.1 - Lobar pneumonia, unspecified organism Is this a current diagnosis for this admission?: Yes Plan: Continue Levaquin
--- NOTE | 2017-07-04 20:10 | RADIOLOGY REPORT (SQ) ---
EXAM DESCRIPTION: CHEST 4 OR MORE VIEWS COMPLETED DATE/TIME: 07/04/2017 7:24 pm REASON FOR STUDY: possible chest tube removal COMPARISON: 07/02/2017. FINDINGS: Four views of the chest including PA, lateral and bilateral lateral decubitus. Pacer in place with 2 grossly intact leads. Small caliber chest tube projects to the left lateral willi ng base. Diminished basilar aeration with bilateral lower lobe volume loss and consolidation. Bilateral relatively small effusions. Neither effusion appears to significantly layer on decubitus i maging. No abnormal gas collections. IMPRESSION: 1. Bilateral relatively non layering pleural effusions. TECHNICAL DOCUMENTATION: JOB ID: [id number] Reading location - IP/workstation name: [email or web address]
[2017-07-04] MEDS: MELATONIN 5 MG TABLET PO SCH (22:46)
[2017-07-04] MEDS: TEMAZEPAM 7.5 MG CAPSULE PO SCH (22:46)
[2017-07-04] MEDS: LATANOPROST 0.005% OPH SOLN 2.5 ML OP SCH (22:47)
--- NOTE | 2017-07-04 23:45 | PDOC PROGRESS REPORT ---
Subjective Progress Note for:: 07/04/17 Subjective:: No pains. Looks weak. Reason For Visit: R91.8 OTHER NONSPECIFIC ABNORMAL FINDING OF LUNG F Physical Exam Vital Signs: Temp Pulse Resp BP Pulse Ox 97.7 F 83 18 120/46 L 93 07/04/17 20:00 07/04/17 20:30 07/04/17 20:30 07/04/17 20:00 07/04/17 20:30 Pulse Oximeter Continuous Start: 07/01/17 17: 32 Freq: RTQ4 Status: Active Document 07/04/17 20:30 LRO (Rec: 07/04/17 21:37 LRO [email or web address]) Pulse Oximetry Assessment Oxygen Saturation (92-100) 93 Oxygen Flow Rate (L/min) 4 Oxygen Delivery Method Nasal Cannula Equipment Usage Equipment in Use Continuous SpO2 Machine # 14 Intake & Output 07/03/17 07/04/17 07/05/17 06:59 06:59 06:59 Intake Total 1615 1466 842 Output Total 225 Balance 1390 1466 842 Weight 80.2 kg 81 kg Exam: No left chest tube drainage today. Chest xray showed non layering bilateral effusion. Results Laboratory Results: 07/04/17 06:53 07/04/17 06:53 07/04/17 07/04/17 06:53 06:53 WBC 9.6 RBC 3.28 L Hgb 9.3 L Hct 29.0 L MCV 89 MCH 28.4 MCHC 32.0 RDW 16.1 H Plt Count 327 Seg Neutrophils % 84.2 H Lymphocytes % 7.2 L Monocytes % 6.4 Eosinophils % 1.5 Basophils % 0.7 Absolute Neutrophils 8.1 Absolute Lymphocytes 0.7 Absolute Monocytes 0.6 Absolute Eosinophils 0.1 Absolute Basophils 0.1 Sodium 146.7 H Potassium 5.1 H Chloride 107 Carbon Dioxide 29 Anion Gap 11 BUN 41 H Creatinine 1.66 H Est GFR ( Amer) 48 L Est GFR (Non-Af Amer) 40 L Glucose 115 H Calcium 8.6 Magnesium 2.8 H Total Bilirubin 0.2 AST 21 ALT 29 Alkaline Phosphatase 104 Total Protein 5.7 L Albumin 2.7 L 07/02/17 07/02/17 05:09 06:31 NT-Pro-B Natriuret Pep Cancelled 8420 H Impressions: Thoracentesis Ultrasound 07/01/17 00:00 IMPRESSION: SUCCESSFUL THORACENTESIS USING ULTRASOUND GUIDANCE. Chest X-Ray 07/04/17 00:00 IMPRESSION: 1. Bilateral relatively non layering pleural effusions. Assessment & Plan - Time Time Spent with patient: 15-24 minutes - Plan Summary Plan Summary: Will talk to Dr Jose about D/C left chest tube.
[2017-07-05] MEDS: LEVOTHYROXINE SODIUM 0.025 MG TABLET PO SCH (06:01)
[2017-07-05] MEDS: LANSOPRAZOLE 15 MG TAB.RAP.DR PO SCH (06:01)
[2017-07-05 06:23] LABS: HEMATOCRIT 28.4 % (37.9-51.0); HEMOGLOBIN 9.2 g/dL (13.5-17.0); MEAN CORPUSCULAR HEMOGLOBIN 28.3 pg (27.0-33.4); MEAN CORPUSCULAR HGB CONC 32.3 g/dL (32.0-36.0); MEAN CORPUSCULAR VOLUME 88 fl (80-97); PLATELET COUNT 356 10^3/uL (150-450); RED BLOOD COUNT 3.23 10^6/uL (4.35-5.55); WHITE BLOOD COUNT 10.4 10^3/uL (4.0-10.5)
[2017-07-05 06:54] LABS: ANION GAP 12 (5-19); BLOOD UREA NITROGEN 44 mg/dL (7-20); CALCIUM 8.6 mg/dL (8.4-10.2); CARBON DIOXIDE 28 mmol/L (22-30); CHLORIDE 107 mmol/L (98-107); GLUCOSE 117 mg/dL (75-110); POTASSIUM 4.9 mmol/L (3.6-5.0); SODIUM 146.5 mmol/L (137-145)
[2017-07-05] MEDS: LEVALBUTEROL HCL NEB 0.63 MG/3 ML AMPUL NEB SCH ×4 (08:14→19:39)
[2017-07-05] MEDS: GUAIFENESIN 600 MG TABLET.SA PO SCH ×2 (09:30→22:43)
[2017-07-05] MEDS: LACTOBACILLUS ACIDOPHILUS 250 MG TAB PO SCH ×2 (09:30→22:43)
[2017-07-05] MEDS: FINASTERIDE 5 MG TABLET PO SCH (09:30)
[2017-07-05] MEDS: AMLODIPINE BESYLATE 5 MG TABLET PO SCH (09:31)
[2017-07-05] MEDS: CLOBETASOL PROPIONATE 0.05% CREAM 15 GM TP SCH (09:42)
[2017-07-05] MEDS: ENOXAPARIN SODIUM INJ 30 MG/0.3 ML DISP.SYRIN SUBCUT SCH (09:42)
--- NOTE | 2017-07-05 10:23 | Operative Report ---
Nonrecallable Operative Report DATE OF SURGERY: 07/05/17 PREOPERATIVE DIAGNOSIS: 1. Malignant left pleural effusion. 2. Exhausted left mini- thoracostomy tube POSTOPERATIVE DIAGNOSIS: Same OPERATION: Removal of left thoracostomy tube SURGEON: BRANDON BOB ANESTHESIA: Other - none TISSUE REMOVED OR ALTERED: none COMPLICATIONS: none ESTIMATED BLOOD LOSS: scant INTRAOPERATIVE FINDINGS: see below PROCEDURE: Patient was placed in bed, semi-upright. Patient has profound shortness of breath chronically. Left chest tube dressing removed, suture removed from chest tube, chest tube removed uneventfully under compression dressing of Xeroform 4 x 4. Tape applied. Patient taught procedure well. Recommendations: 1. I explained to the patient that he will likely have reaccumulation of left pleural fluid secondary to metastatic intrathoracic disease. Whether he undergoes no further treatment, additional thoracentesis, or PLEURX catheter insertion is up to his oncologic team. 2. Surgery will be available for reconsultation if needed
--- NOTE | 2017-07-05 12:01 | RADIOLOGY REPORT (SQ) ---
EXAM DESCRIPTION: CHEST SINGLE VIEW COMPLETED DATE/TIME: 07/05/2017 11:48 am REASON FOR STUDY: dyspnea COMPARISON: None. EXAM PARAMETERS: NUMBER OF VIEWS: One view. TECHNIQUE: Single frontal radiographic view of the chest acquired. RADIATION DOSE: NA LIMITATIONS: None. FINDINGS: LUNGS AND PLEURA: Increased right middle lobe and right lower lobe airspace disease with e nlarging pleural effusion. Relatively stable left pleural effusion with airspace disease. MEDIASTINUM AND HILAR STRUCTURES: No masses. Contour normal. HEART AND VASCULAR STRUCTURES: Heart normal in size. Normal vasculature. BONES: No acute findings. HARDWARE: CARDIAC PACER. OTHER: No other significant finding. IMPRESSION: INCREASING RIGHT MIDDLE LOBE AND RIGHT LOWER LOBE AIRSPACE DISEASE WITH ENLARGING PLEURA L EFFUSION. STABLE LEFT PLEURAL EFFUSION WITH AIRSPACE DISEASE. INTERVAL REMOVAL OF LEFT-SIDED CHEST TUBE TECHNICAL DOCUMENTATION: JOB ID: [id number] [employer]- All Rights Reserved Reading location - IP/workstation name: [email or web address]
--- NOTE | 2017-07-05 13:19 | PDOC PROGRESS REPORT ---
Subjective Progress Note for:: 07/05/17 Subjective:: Mr. Wilson was in the ambulatory surgical unit today to get a CT-guided lung biopsy. He was found to have a large left pleural effusion and was hypoxic on room air with sats in the 70s. A thoracentesis was performed with a drainage of 1400 cc of fluid. Later left- sided chest tube inserted by surgery and patient continued to drain serosanguineous fluid. Of note patient has history of left renal cell carcinoma status post total nephrectomy. During this current admission CT scan of the chest show new pulmonary nodules bilaterally and new right upper lobe infiltrates for which she is being treated as a case of pneumonia with Levaquin.. the cytology of the pleural fluid is negative for malignancy. Morning I examined the patient's at bedside he is awake alert but he is short of breath and somewhat labored. Please follow-up with surgery and his primary oncologist. Reason For Visit: R91.8 OTHER NONSPECIFIC ABNORMAL FINDING OF LUNG F Physical Exam Vital Signs: Temp Pulse Resp BP Pulse Ox 97.9 F 65 24 H 133/49 H 90 L 07/05/17 11:35 07/05/17 12:24 07/05/17 12:24 07/05/17 11:35 07/05/17 12:24 Pulse Oximeter Continuous Start: 07/01/17 17: 32 Freq: RTQ4 Status: Active Document 07/05/17 12:24 HCR (Rec: 07/05/17 13:08 HCR [email or web address]) Pulse Oximetry Assessment Oxygen Saturation (92-100) 90 Oxygen Flow Rate (L/min) 6 Oxygen Delivery Method Nasal Cannula Equipment Usage Equipment in Use Continuous SpO2 Machine # 14 Intake & Output 07/04/17 07/05/17 07/06/17 06:59 06:59 06:59 Intake Total 1466 1163 Output Total 625 Balance 1466 538 Weight 81 kg Results Laboratory Results: 07/05/17 06:08 07/05/17 06:08 07/05/17 07/05/17 06:08 06:08 WBC 10.4 RBC 3.23 L Hgb 9.2 L Hct 28.4 L MCV 88 MCH 28.3 MCHC 32.3 RDW 17.0 H Plt Count 356 Sodium 146.5 H Potassium 4.9 Chloride 107 Carbon Dioxide 28 Anion Gap 12 BUN 44 H Creatinine 1.74 H Est GFR ( Amer) 45 L Est GFR (Non-Af Amer) 37 L Glucose 117 H Calcium 8.6 Magnesium 2.7 H 07/02/17 19:45 Sputum Gram Stain - Final 07/02/17 19:45 Sputum Sputum Culture - Final NORMAL BASILIA 07/02/17 07/02/17 05:09 06:31 NT-Pro-B Natriuret Pep Cancelled 8420 H Impressions: Thoracentesis Ultrasound 07/01/17 00:00 IMPRESSION: SUCCESSFUL THORACENTESIS USING ULTRASOUND GUIDANCE. Chest X-Ray 07/05/17 00:00 IMPRESSION: INCREASING RIGHT MIDDLE LOBE AND RIGHT LOWER LOBE AIRSPACE DISEASE WITH ENLARGING PLEURAL EFFUSION. STABLE LEFT PLEURAL EFFUSION WITH AIRSPACE DISEASE. INTERVAL REMOVAL OF LEFT-SIDED CHEST TUBE Assessment & Plan - Diagnosis (1) BPH (benign prostatic hyperplasia) Is this a current diagnosis for this admission?: Yes (2) Hypertension Is this a current diagnosis for this admission?: Yes (3) Lung mass Is this a current diagnosis for this admission?: Yes (4) Recurrent left pleural effusion Is this a current diagnosis for this admission?: Yes (5) Right middle lobe pneumonia Qualifiers: Pneumonia type: due to unspecified organism Qualified Code(s): J18.1 - Lobar pneumonia, unspecified organism Is this a current diagnosis for this admission?: Yes Plan: Continue Levaquin
[2017-07-05] MEDS: TEMAZEPAM 7.5 MG CAPSULE PO SCH (22:43)
[2017-07-05] MEDS: MELATONIN 5 MG TABLET PO SCH (22:43)
[2017-07-05] MEDS: LEVOFLOXACIN 750 MG/D5W RTU 750 MG/150 ML RTUPB IV SCH (22:44)
[2017-07-05] MEDS: LATANOPROST 0.005% OPH SOLN 2.5 ML OP SCH (23:05)
[2017-07-06] MEDS: LANSOPRAZOLE 15 MG TAB.RAP.DR PO SCH (05:28)
[2017-07-06] MEDS: LEVOTHYROXINE SODIUM 0.025 MG TABLET PO SCH (05:28)
[2017-07-06] MEDS: LEVALBUTEROL HCL NEB 0.63 MG/3 ML AMPUL NEB SCH ×4 (08:06→19:53)
[2017-07-06] MEDS: LACTOBACILLUS ACIDOPHILUS 250 MG TAB PO SCH ×2 (10:00→22:29)
[2017-07-06] MEDS: FINASTERIDE 5 MG TABLET PO SCH (10:00)
[2017-07-06] MEDS: AMLODIPINE BESYLATE 5 MG TABLET PO SCH (10:01)
[2017-07-06] MEDS: GUAIFENESIN 600 MG TABLET.SA PO SCH ×2 (10:02→22:30)
[2017-07-06] MEDS: ENOXAPARIN SODIUM INJ 30 MG/0.3 ML DISP.SYRIN SUBCUT SCH (10:02)
[2017-07-06] MEDS: CLOBETASOL PROPIONATE 0.05% CREAM 15 GM TP SCH (15:18)
--- NOTE | 2017-07-06 17:35 | CONSULTATION REPORT E ---
Consultation Report NAME: AISSATOU IVERSON : [id number] AGE: 86Y DATE: 07/06/2017 406 A TO: AMELIA LOCO M.D. FROM: AMELIA LOCO M.D. Requesting Physician REASON FOR CONSULTATION: The patient is referred because of lung masses. HISTORY OF PRESENT ILLNESS: The patient is an 86-year-old man who has a history of left renal cell carcinoma. He is status post left nephrectomy. He at that time had multiple pulmonary nodules which could represent metastatic disease, however, the lung nodules were slow growing and he recently developed recurrent pleural effusions. On 06/15 his last chest x-ray had shown enlarging left pleural effusion. He was seen by a surgeon in [place] and the plan was to probably insert a Pleurx catheter if his pleural effusion should recur. Cytology on prior effusions have been negative for malignancy, however, highly suspicious for malignancy. His last head CT had shown multiple pulmonary nodules, and he was scheduled for a biopsy of one of the nodules for a diagnosis, however, when he came to the hospital it was noted that he had a large effusion and so he underwent thoracentesis. He developed like a pneumothorax. A chest tube was placed and he was admitted. At the bedside today, he appears comfortable on oxygen. PAST MEDICAL HISTORY: History of renal cell cancer. OTHER MEDICAL PROBLEMS: 1. Atrial fibrillation. 2. Arrhythmia. 3. Benign prostatic hypertrophy. 4. Chronic kidney disease. 5. Coronary artery disease. 6. 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 PAST SURGICAL HISTORY: 1. Transurethral resection of the prostate in 2016 and 2003. 2. Nephrectomy for renal cell cancer. 3. Prior thoracentesis. 4. Pituitary removal. ALLERGIES: He has no known drug allergies. CURRENT MEDICATIONS: As listed in the chart. PHYSICAL EXAMINATION: GENERAL: He is an elderly man sitting on the bedside. He is alert, oriented, and answering all questions appropriately. LUNG: Decreased left lung base otherwise good air entry bilaterally. EXTREMITIES: Bilateral edema. LABORATORY DATA: From 07/02/2017, white count 14.2, hemoglobin 10.2, platelet count 358. IMPRESSION AND PLAN: The patient is an 86-year-old man who presents now with recurrent pleural effusion in the setting of a prior history of renal cell cancer. I would recommend that he have a Pleurx catheter inserted, that would help to reduce the need for repeated thoracentesis, and that would improve the quality of his life. I explained to the patient as I have previously that the recurrent pleural effusions and the multiple pulmonary nodules probably represent metastatic disease. He does have a history of renal cell cancer, however, a tissue diagnosis will be needed to ascertain that the effusion and pulmonary nodules is secondary to the renal cell cancer. I would also recommend a CT-guided biopsy of one of the pleural-based lung nodules or of lung nodules. I will follow up on the biopsy results as an outpatient, and he will follow up in the office for us to discuss what happens they would with regards to palliative chemotherapy following his discharge. I thank you for this consultation and allowing me to be a part of his care. DICTATING PHYSICIAN: AMELIA LOCO M.D. [id number] [facility]#: [id number] ID: [id number] JOB#: [id number] ACCT: [id number] cc:AMELIA LOCO M.D. >
--- NOTE | 2017-07-06 21:57 | PDOC PROGRESS REPORT ---
Subjective Progress Note for:: 07/06/17 Subjective:: Patient refers that was able to sleep last night since sat in the reclining chair. Accordingly, that is the way he sleeps at home. After initial round, was called to talk to family since according to patient and family they had not been able to get an update regarding patient's condition. Patient's and a neighbor were in the room as well as his nurse. Discussed the findings of the xray which suggest a malignancy. Also made them aware that initially he was treated for a pneumonia but findings are consistent with a malignancy. Patient requested to be seen by his oncologist. Nurse was advised to follow thru since request was placed on admission. Found out thru the neighbor that the couple have children and are not local. She was advised to try to assist in getting in touch with them. Patient will need to make arrangement for a POA, etc.. Review of systems All organ systems evaluated and negative except as in subjective All significant diagnostics and laboratories had been reviewed Reason For Visit: R91.8 OTHER NONSPECIFIC ABNORMAL FINDING OF LUNG F Physical Exam Vital Signs: Temp Pulse Resp BP Pulse Ox 97.6 F 66 18 113/44 L 90 L 07/06/17 07:54 07/06/17 07:54 07/06/17 07:54 07/06/17 07:54 07/06/17 07:54 Pulse Oximeter Continuous Start: 07/01/17 17: 32 Freq: RTQ4 Status: Active Document 07/06/17 04:00 CMI (Rec: 07/06/17 04:43 CMI [email or web address]) Pulse Oximetry Assessment Oxygen Saturation (92-100) 93 Oxygen Flow Rate (L/min) 6 Oxygen Delivery Method Nasal Cannula Fraction of Inspired Oxygen (FIO2) 44 Equipment Usage Equipment in Use Continuous SpO2 Machine # 14 Intake & Output 07/05/17 07/06/17 07/07/17 06:59 06:59 06:59 Intake Total 1163 853 Output Total 281 1025 Balance 538 -172 General appearance: PRESENT: no acute distress, cooperative, well-developed, well-nourished. ABSENT: disheveled Head exam: PRESENT: atraumatic, normocephalic Eye exam: PRESENT: conjunctiva pink, EOMI, PERRLA Mouth exam: PRESENT: moist Neck exam: PRESENT: full ROM. ABSENT: JVD, lymphadenopathy, tenderness Respiratory exam: PRESENT: crackles, decreased breath sounds Cardiovascular exam: PRESENT: RRR. ABSENT: diastolic murmur, systolic murmur Vascular exam: PRESENT: normal capillary refill GI/Abdominal exam: PRESENT: normal bowel sounds, soft. ABSENT: tenderness Extremities exam: PRESENT: full ROM, other - 3+ edema Musculoskeletal exam: PRESENT: ambulatory Neurological exam: PRESENT: alert, awake, oriented to person, oriented to place , oriented to time, oriented to situation, CN II-XII grossly intact Psychiatric exam: PRESENT: appropriate affect, normal mood Skin exam: PRESENT: normal color Results Laboratory Results: 07/05/17 06:08 07/05/17 06:08 07/02/17 19:45 Sputum Gram Stain - Final 07/02/17 19:45 Sputum Sputum Culture - Final NORMAL BASILIA 07/02/17 07/02/17 05:09 06:31 NT-Pro-B Natriuret Pep Cancelled 8420 H Impressions: Thoracentesis Ultrasound 07/01/17 00:00 IMPRESSION: SUCCESSFUL THORACENTESIS USING ULTRASOUND GUIDANCE. Chest X-Ray 07/05/17 00:00 IMPRESSION: INCREASING RIGHT MIDDLE LOBE AND RIGHT LOWER LOBE AIRSPACE DISEASE WITH ENLARGING PLEURAL EFFUSION. STABLE LEFT PLEURAL EFFUSION WITH AIRSPACE DISEASE. INTERVAL REMOVAL OF LEFT-SIDED CHEST TUBE Assessment & Plan - Diagnosis (1) Pleural effusion, right Is this a current diagnosis for this admission?: Yes Plan: Will reconsult surgery for pleurx (2) Hypertension Is this a current diagnosis for this admission?: Yes Plan: Continue current treatment (3) Lung mass Is this a current diagnosis for this admission?: Yes Plan: Talked to oncologist and recommends placement of pleurx to drain the effusion and hopefully to proceed with CT guided biopsy of the lung mass. 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 Qualifiers: Laterality: left Qualified Code(s): C78.02 - Secondary malignant neoplasm of left lung; C64.9 - Malignant neoplasm of unspecified kidney, except renal pelvis; C64.9 - Malignant neoplasm of unspecified kidney, except renal pelvis; C64.9 - Malignant neoplasm of unspecified kidney, except renal pelvis; C64.9 - Malignant neoplasm of unspecified kidney, except renal pelvis Is this a current diagnosis for this admission?: Yes Plan: As per Dr Mendez (5) Recurrent left pleural effusion Is this a current diagnosis for this admission?: Yes Plan: Appears to be stable as per chestxray (6) Right middle lobe pneumonia Qualifiers: Pneumonia type: due to unspecified organism Qualified Code(s): J18.1 - Lobar pneumonia, unspecified organism Is this a current diagnosis for this admission?: No Plan: Will discontinue antibiotic treatment since infiltrate more consistent with possible malignancy (7) Chronic respiratory failure Qualifiers: Respiratory failure complication: hypoxia Qualified Code(s): J96.11 - Chronic respiratory failure with hypoxia Is this a current diagnosis for this admission?: Yes Plan: Patient had been requiring use of oxygen as outpatient and continue its need despite thoracentesis - Time Time Spent with patient: 15-24 minutes Medications reviewed and adjusted accordingly: Yes Anticipated discharge: Home with Homehealth Within: within 72 hours - Inpatient Certification Based on my medical assessment, after consideration of the patient's comorbidities, presenting symptoms, or acuity I expect that the services needed warrant INPATIENT care.: Yes I certify that my determination is in accordance with my understanding of Medicare's requirements for reasonable and necessary INPATIENT services [42 CFR 412.3e].: Yes Medical Necessity: Significant Comorbidiites Make Outpatient Treatment Too Risky , Need Close Monitoring Due to Risk of Patient Decompensation
[2017-07-06] MEDS: TEMAZEPAM 7.5 MG CAPSULE PO SCH (22:29)
[2017-07-06] MEDS: MELATONIN 5 MG TABLET PO SCH (22:30)
[2017-07-06] MEDS: LATANOPROST 0.005% OPH SOLN 2.5 ML OP SCH (22:30)
[2017-07-07 05:14] LABS: ABSOLUTE BASOPHILS # (AUTO) 0.1 10^3/uL (0.0-0.2); ABSOLUTE EOSINOPHILS # (AUTO) 0.3 10^3/uL (0.0-0.6); ABSOLUTE LYMPHOCYTES (AUTO) 0.5 10^3/uL (0.5-4.7); ABSOLUTE MONOCYTES (AUTO) 0.8 10^3/uL (0.1-1.4); ABSOLUTE NEUT (AUTO) 7.9 10^3/uL (1.7-8.2); BASOPHILS % (AUTO) 0.9 % (0-2); EOSINOPHILS % (AUTO) 2.6 % (0-6); HEMATOCRIT 27.3 % (37.9-51.0); HEMOGLOBIN 8.7 g/dL (13.5-17.0); LYMPHOCYTES % (AUTO) 5.4 % (13-45); MEAN CORPUSCULAR HEMOGLOBIN 28.4 pg (27.0-33.4); MEAN CORPUSCULAR HGB CONC 32.1 g/dL (32.0-36.0); MEAN CORPUSCULAR VOLUME 88 fl (80-97); MONOCYTES % (AUTO) 8.3 % (3-13); PLATELET COUNT 327 10^3/uL (150-450); RED BLOOD COUNT 3.08 10^6/uL (4.35-5.55); RED CELL DISTRIBUTION WIDTH 16.9 % (11.5-14.0); SEGMENTED NEUTROPHILS % (AUTO) 82.8 % (42-78); TOTAL CELLS COUNTED % (AUTO) 100 %; WHITE BLOOD COUNT 9.5 10^3/uL (4.0-10.5)
[2017-07-07 05:37] LABS: ANION GAP 12 (5-19); BLOOD UREA NITROGEN 47 mg/dL (7-20); CALCIUM 8.5 mg/dL (8.4-10.2); CARBON DIOXIDE 28 mmol/L (22-30); CHLORIDE 107 mmol/L (98-107); GLUCOSE 114 mg/dL (75-110); POTASSIUM 5.7 mmol/L (3.6-5.0); SODIUM 147.3 mmol/L (137-145)
[2017-07-07] MEDS: LEVOTHYROXINE SODIUM 0.025 MG TABLET PO SCH (06:33)
[2017-07-07] MEDS: LANSOPRAZOLE 15 MG TAB.RAP.DR PO SCH (06:33)
[2017-07-07] MEDS: LEVALBUTEROL HCL NEB 0.63 MG/3 ML AMPUL NEB SCH ×2 (07:58→12:36)
[2017-07-07] MEDS: ENOXAPARIN SODIUM INJ 30 MG/0.3 ML DISP.SYRIN SUBCUT SCH (10:51)
[2017-07-07] MEDS: LACTOBACILLUS ACIDOPHILUS 250 MG TAB PO SCH ×2 (11:25→21:13)
[2017-07-07] MEDS: FINASTERIDE 5 MG TABLET PO SCH (11:26)
[2017-07-07] MEDS: AMLODIPINE BESYLATE 5 MG TABLET PO SCH (11:26)
[2017-07-07] MEDS: GUAIFENESIN 600 MG TABLET.SA PO SCH ×2 (11:26→21:13)
[2017-07-07] MEDS: CLOBETASOL PROPIONATE 0.05% CREAM 15 GM TP SCH (11:28)
[2017-07-07] MEDS ORDERED: FENTANYL CITRATE INJ/PF 100 MCG/2 ML AMPUL ONE (14:05)
[2017-07-07] MEDS ORDERED: LIDOCAINE 1% INJ-PF (10 MG/ML) 30 ML SDV ONE (14:05)
[2017-07-07] MEDS ORDERED: MIDAZOLAM 2 MG/2 ML INJ ONE (14:05)
[2017-07-07] MEDS ORDERED: FUROSEMIDE INJ/PF 20 MG/2 ML SDV IV SCH (15:45)
--- NOTE | 2017-07-07 15:51 | PDOC PROGRESS REPORT ---
Subjective Progress Note for:: 07/07/17 Subjective:: Patient refers that he feels moderate. He does not respond about this shortness of breath. He again slept on the recliner chair. Patient made aware that he looks short of breath but he brushes off Review of systems All organ systems evaluated and negative except as in subjective All significant diagnostics and laboratories had been reviewed Reason For Visit: R91.8 OTHER NONSPECIFIC ABNORMAL FINDING OF LUNG F Physical Exam Vital Signs: Temp Pulse Resp BP Pulse Ox 98.6 F 60 20 112/32 L 92 07/07/17 03:59 07/07/17 03:59 07/07/17 03:59 07/07/17 03:59 07/07/17 04:00 Pulse Oximeter Continuous Start: 07/01/17 17: 32 Freq: RTQ4 Status: Active Document 07/07/17 04:00 LRO (Rec: 07/07/17 04:34 LRO [email or web address]) Pulse Oximetry Assessment Oxygen Saturation (92-100) 92 Oxygen Flow Rate (L/min) 4 Oxygen Delivery Method Nasal Cannula Equipment Usage Equipment in Use Continuous SpO2 Machine # 14 Intake & Output 07/06/17 07/07/17 07/08/17 06:59 06:59 06:59 Intake Total 853 1253 Output Total 1025 900 Balance -172 353 General appearance: PRESENT: cooperative, mild distress, well-developed, well- nourished Head exam: PRESENT: atraumatic, normocephalic Eye exam: PRESENT: conjunctiva pink, EOMI, PERRLA Ear exam: PRESENT: normal external ear exam Mouth exam: PRESENT: moist Neck exam: PRESENT: full ROM. ABSENT: JVD, lymphadenopathy, tenderness Respiratory exam: PRESENT: crackles, decreased breath sounds, other - Crackles primarily heard right-sided. There is adequate movement of air bedside Cardiovascular exam: PRESENT: RRR. ABSENT: diastolic murmur, systolic murmur Vascular exam: PRESENT: normal capillary refill GI/Abdominal exam: PRESENT: normal bowel sounds, soft. ABSENT: distended, tenderness Extremities exam: PRESENT: full ROM, other - 3+ edema Musculoskeletal exam: PRESENT: ambulatory Neurological exam: PRESENT: alert, awake, oriented to person, oriented to place , oriented to time, oriented to situation, CN II-XII grossly intact Psychiatric exam: PRESENT: appropriate affect, normal mood Skin exam: PRESENT: normal color Results Laboratory Results: 07/07/17 04:13 07/07/17 04:13 07/07/17 07/07/17 04:13 04:13 WBC 9.5 RBC 3.08 L Hgb 8.7 L Hct 27.3 L MCV 88 MCH 28.4 MCHC 32.1 RDW 16.9 H Plt Count 327 Seg Neutrophils % 82.8 H Lymphocytes % 5.4 L Monocytes % 8.3 Eosinophils % 2.6 Basophils % 0.9 Absolute Neutrophils 7.9 Absolute Lymphocytes 0.5 Absolute Monocytes 0.8 Absolute Eosinophils 0.3 Absolute Basophils 0.1 Sodium 147.3 H Potassium 5.7 H Chloride 107 Carbon Dioxide 28 Anion Gap 12 BUN 47 H Creatinine 1.91 H Est GFR ( Amer) 41 L Est GFR (Non-Af Amer) 34 L Glucose 114 H Calcium 8.5 Magnesium 2.9 H 07/02/17 07/02/17 05:09 06:31 NT-Pro-B Natriuret Pep Cancelled 8420 H Impressions: Thoracentesis Ultrasound 07/01/17 00:00 IMPRESSION: SUCCESSFUL THORACENTESIS USING ULTRASOUND GUIDANCE. Chest X-Ray 07/05/17 00:00 IMPRESSION: INCREASING RIGHT MIDDLE LOBE AND RIGHT LOWER LOBE AIRSPACE DISEASE WITH ENLARGING PLEURAL EFFUSION. STABLE LEFT PLEURAL EFFUSION WITH AIRSPACE DISEASE. INTERVAL REMOVAL OF LEFT-SIDED CHEST TUBE Assessment & Plan - Diagnosis (1) Pleural effusion, right Is this a current diagnosis for this admission?: Yes Plan: Patient went to the radiology suite for a Pleurx however the lesion was aborted because patient was not able to lay flat. Will proceed to place patient on Lasix IV and request a thoracentesis in the meantime. We are aiming to try to improve his breathing status so he might be able to lay flat for the Pleurx (2) Hypertension Is this a current diagnosis for this admission?: Yes Plan: Continue current treatment (3) Lung mass Is this a current diagnosis for this admission?: Yes Plan: Talked to oncologist and recommends placement of pleurx to drain the effusion and hopefully to proceed with CT guided biopsy of the lung mass. 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 Qualifiers: Laterality: left Qualified Code(s): C78.02 - Secondary malignant neoplasm of left lung; C64.9 - Malignant neoplasm of unspecified kidney, except renal pelvis; C64.9 - Malignant neoplasm of unspecified kidney, except renal pelvis; C64.9 - Malignant neoplasm of unspecified kidney, except renal pelvis; C64.9 - Malignant neoplasm of unspecified kidney, except renal pelvis Is this a current diagnosis for this admission?: Yes Plan: As per Dr Mendez (5) Recurrent left pleural effusion Is this a current diagnosis for this admission?: Yes Plan: Appears to be stable as per chest xray (6) Right middle lobe pneumonia Qualifiers: Pneumonia type: due to unspecified organism Qualified Code(s): J18.1 - Lobar pneumonia, unspecified organism Is this a current diagnosis for this admission?: No Plan: Off antibiotic treatment since infiltrate more consistent with possible malignancy (7) Chronic respiratory failure Qualifiers: Respiratory failure complication: hypoxia Qualified Code(s): J96.11 - Chronic respiratory failure with hypoxia Is this a current diagnosis for this admission?: Yes Plan: Patient had been requiring use of oxygen as outpatient and continue its need despite thoracentesis (8) Leg swelling Is this a current diagnosis for this admission?: Yes Plan: May be due to pulmonary issues. Will order an echocardiogram primarily targeting to look for pulmonary hypertension will start IV Lasix - Time Time Spent with patient: 15-24 minutes Medications reviewed and adjusted accordingly: Yes Anticipated discharge: Home with Homehealth Within: within 72 hours - Inpatient Certification Based on my medical assessment, after consideration of the patient's comorbidities, presenting symptoms, or acuity I expect that the services needed warrant INPATIENT care.: Yes I certify that my determination is in accordance with my understanding of Medicare's requirements for reasonable and necessary INPATIENT services [42 CFR 412.3e].: Yes Medical Necessity: Significant Comorbidiites Make Outpatient Treatment Too Risky , Need Close Monitoring Due to Risk of Patient Decompensation
[2017-07-07 16:31] LABS: INTERNATIONAL RATION (INR) 1.06; PROTHROMBIN TIME 14.4 SEC (11.4-15.4)
[2017-07-07 16:32] LABS: PARTIAL THROMBOPLASTIN TIME 40.9 SEC (23.5-35.8)
[2017-07-07] MEDS ORDERED: IPRATROPIUM/ALBUTEROL 0.5-2.5 MG/3 ML AMPUL NEB ONE (17:00)
[2017-07-07] MEDS ORDERED: SODIUM POLYSTYRENE SULFONATE 15 GM/60 ML PO ONE (17:00)
[2017-07-07] MEDS: FUROSEMIDE INJ/PF 40 MG/4 ML SDV IV SCH (17:20)
[2017-07-07] MEDS: IPRATROPIUM/ALBUTEROL 0.5-2.5 MG/3 ML AMPUL NEB SCH (21:02)
[2017-07-07] MEDS: LATANOPROST 0.005% OPH SOLN 2.5 ML OP SCH (21:13)
[2017-07-07] MEDS: TEMAZEPAM 7.5 MG CAPSULE PO SCH (21:15)
[2017-07-07] MEDS: MELATONIN 5 MG TABLET PO SCH (21:15)
[2017-07-08 05:22] LABS: MEAN CORPUSCULAR HEMOGLOBIN 28.1 pg (27.0-33.4); MEAN CORPUSCULAR HGB CONC 32.2 g/dL (32.0-36.0); MEAN CORPUSCULAR VOLUME 87 fl (80-97); PLATELET COUNT 288 10^3/uL (150-450); RED BLOOD COUNT 3.21 10^6/uL (4.35-5.55); RED CELL DISTRIBUTION WIDTH 17.1 % (11.5-14.0); WHITE BLOOD COUNT 9.6 10^3/uL (4.0-10.5)
[2017-07-08 05:47] LABS: ANION GAP 11 (5-19); BLOOD UREA NITROGEN 45 mg/dL (7-20); CALCIUM 8.5 mg/dL (8.4-10.2); CARBON DIOXIDE 28 mmol/L (22-30); CHLORIDE 107 mmol/L (98-107); GLUCOSE 110 mg/dL (75-110); POTASSIUM 5.1 mmol/L (3.6-5.0); SODIUM 146.2 mmol/L (137-145)
[2017-07-08] MEDS: FUROSEMIDE INJ/PF 40 MG/4 ML SDV IV SCH ×2 (05:52→22:11)
[2017-07-08] MEDS: LEVOTHYROXINE SODIUM 0.025 MG TABLET PO SCH (05:52)
[2017-07-08] MEDS: LANSOPRAZOLE 15 MG TAB.RAP.DR PO SCH (05:52)
[2017-07-08 06:01] LABS: ABSOLUTE LYMPHOCYTES# (MANUAL) 0.5 10^3/uL (0.5-4.7); ABSOLUTE MONOCYTES # (MANUAL) 0.9 10^3/uL (0.1-1.4); ABSOLUTE NEUTROPHILS# (MANUAL) 8.1 10^3/uL (1.7-8.2); BASOPHILS % (MANUAL) 0 % (0-2); EOSINOPHILS % (MANUAL) 2 % (0-6); LYMPHOCYTES % (MANUAL) 5 % (13-45); MONOCYTES % (MANUAL) 9 % (3-13); SEGMENTED NEUTROPHILS % (MAN) 84 % (42-78); TOTAL CELLS COUNTED 100
[2017-07-08 06:03] LABS: ANISOCYTOSIS 2+; PLATELET COMMENT ADEQUATE; PLATELET LARGE PRESENT; SCHISTOCYTES SLIGHT
[2017-07-08] MEDS: IPRATROPIUM/ALBUTEROL 0.5-2.5 MG/3 ML AMPUL NEB SCH ×3 (07:56→20:54)
[2017-07-08] MEDS ORDERED: GLYCOPYRROLATE INJ 0.4 MG/2 ML VIAL ONE (08:02)
[2017-07-08] MEDS: ENOXAPARIN SODIUM INJ 30 MG/0.3 ML DISP.SYRIN SUBCUT SCH (10:20)
[2017-07-08] MEDS: GUAIFENESIN 600 MG TABLET.SA PO SCH ×2 (10:20→22:11)
[2017-07-08] MEDS: LACTOBACILLUS ACIDOPHILUS 250 MG TAB PO SCH ×2 (10:20→22:11)
--- NOTE | 2017-07-08 12:58 | EKG REPORT ---
SEVERITY:- ABNORMAL ECG - ATRIAL FLUTTER IVCD, CONSIDER ATYPICAL RBBB POOR R WAVE PROGRESSION ANTERIOR LEADS. : Confirmed by: Landry Latham MD 08-Jul-2017 12:57:56
[2017-07-08] MEDS ORDERED: PROPOFOL INJ 200 MG/20 ML VIAL IV ONE (16:09)
[2017-07-08] MEDS ORDERED: KETAMINE HCL INJ 500 MG/10 ML VIAL ONE (17:06)
--- NOTE | 2017-07-08 18:13 | XCELERA REPORT ---
[address] [address] Transthoracic Echocardiogram Report Name: AISSATOU IVERSON Age: 86 yrs Gender: Male : 1930 Patient Status: Inpatient Patient Location: [address] [place] [address] Study Date: 07/08/2017 02:14 PM Height: 70 in Weight: 178 lb BSA: 2.0 m2 Procedure: A complete two-dimensional transthoracic echocardiogram was performed (2D, M-mode, spectral and color flow Doppler). The study was technically adequate with some images being suboptimal in quality. Reason For Study: pleural effusion Ordering Physician: ESPINOZA HENRIQUEZ Performed By: Ana Rocha Interpretation Summary The left ventricular ejection fraction is normal. There is mild concentric left ventricular hypertrophy. The left ventricle is grossly normal size. LV diastolic function could not be adequately assessed. Wall motion cannot be accurately commented on, but no definite regional wall motion abnormalities noted. The right ventricle is mildly dilated. The right ventricular systolic function is normal. The left atrium is mildly dilated. The right atrium is moderately dilated. There is a mild to moderate amount of mitral regurgitation There is no mitral valve stenosis. There is no aortic valve stenosis No aortic regurgitation is present. There is a mild amount of tricuspid regurgitation There is servere pulmonary hypertension by echo Best estimated RVSP is approximately 60-65 mm/Hg. The pulmonic valve is not well visualized. The aortic root is not well visualized but is probably normal size. The inferior vena cava appeared normal and decreased < 50% with respiration (RAP 10-15 mmHg) There is no pericardial effusion. MMode/2D Measurements & Calculations RVDd: 3.9 cm LVIDd: 3.6 cm FS: 26.4 % Ao root diam: 3.2 cm IVSd: 1.4 cm LVIDs: 2.6 cm EDV(Teich): 53.5 ml LVPWd: 1.3 cm ESV(Teich): 25.3 ml Ao root area: 8.0 cm2 EF(Teich): 52.7 % LA dimension: 4.0 cm LVOT diam: 2.2 cm LVOT area: 3.9 cm2 Doppler Measurements & Calculations MV E max erik: MV P1/2t max erik: Ao V2 max: LV V1 max P.0 cm/sec 114.5 cm/sec 231.7 cm/sec 7.6 mmHg MV A max erik: MV P1/2t: 68.1 msec Ao max PG: LV V1 max: 65.2 cm/sec MVA(P1/2t): 3.2 cm2 21.5 mmHg 137.7 cm/sec MV E/A: 1.7 MV dec slope: MADYSON(V,D): 2.3 cm2 492.8 cm/sec2 PA V2 max: TR max erik: 113.5 cm/sec 403.1 cm/sec PA max PG: TR max P.0 mmHg 5.2 mmHg Left Ventricle The left ventricle is grossly normal size. There is mild concentric left ventricular hypertrophy. The left ventricular ejection fraction is normal. LV diastolic function could not be adequately assessed. Wall motion cannot be accurately commented on, but no definite regional wall motion abnormalities noted. Right Ventricle The right ventricle is mildly dilated. The right ventricular systolic function is normal. Atria The right atrium is moderately dilated. The left atrium is mildly dilated. Interarterial septum not well visualized and not well dopplered. Cannot comment on ASD/PFO presence. Mitral Valve The mitral valve is grossly normal. There is no mitral valve stenosis. There is a mild to moderate amount of mitral regurgitation. Aortic Valve The aortic valve is mildly calcified. There is no aortic valve stenosis. No aortic regurgitation is present. Tricuspid Valve The tricuspid valve is not well visualized, but is grossly normal. There is no tricuspid stenosis. There is a mild amount of tricuspid regurgitation. There is servere pulmonary hypertension by echo. Best estimated RVSP is approximately 60-65 mm/Hg. Pulmonic Valve The pulmonic valve is not well visualized. Great Vessels The aortic root is not well visualized but is probably normal size. The inferior vena cava appeared normal and decreased < 50% with respiration (RAP 10-15 mmHg). Effusions There is no pericardial effusion. : ESPINOZA HENRIQUEZ > Jessica Doran
--- NOTE | 2017-07-08 18:14 | PDOC PROGRESS REPORT ---
Subjective Progress Note for:: 07/08/17 Subjective:: Patient refers that feels okay. Here appears to be short of breath. Procedure aborted yesterday because patient was unable to lie flat. Dr. Jose recommends to keep the patient n.p.o. in order to proceed with placement of Pleurx Review of systems All organ systems evaluated and negative except as in subjective All significant diagnostics and laboratories had been reviewed Reason For Visit: R91.8 OTHER NONSPECIFIC ABNORMAL FINDING OF LUNG F Physical Exam Vital Signs: Temp Pulse Resp BP Pulse Ox 97.7 F 62 22 H 118/81 90 L 07/08/17 14:25 07/08/17 14:25 07/08/17 14:25 07/08/17 14:25 07/08/17 15:50 Pulse Oximeter Continuous Start: 07/01/17 17: 32 Freq: RTQ4 Status: Active Document 07/08/17 15:50 CBR (Rec: 07/08/17 17:42 CBR [email or web address]) Pulse Oximetry Assessment Oxygen Saturation (92-100) 90 Oxygen Flow Rate (L/min) 3 Oxygen Delivery Method Nasal Cannula Fraction of Inspired Oxygen (FIO2) 32 Equipment Usage Equipment in Use Continuous SpO2 Machine # 14 Intake & Output 07/07/17 07/08/17 07/09/17 06:59 06:59 06:59 Intake Total 1253 270 153 Output Total 900 300 475 Balance 353 -30 -322 Weight 81 kg General appearance: PRESENT: cooperative, mild distress, thin Head exam: PRESENT: atraumatic, normocephalic Eye exam: PRESENT: conjunctiva pink, EOMI, PERRLA Ear exam: PRESENT: normal external ear exam Mouth exam: PRESENT: moist Neck exam: PRESENT: full ROM. ABSENT: JVD, lymphadenopathy, tenderness Respiratory exam: PRESENT: crackles, decreased breath sounds Cardiovascular exam: PRESENT: RRR. ABSENT: diastolic murmur, systolic murmur Vascular exam: PRESENT: normal capillary refill GI/Abdominal exam: PRESENT: normal bowel sounds, soft. ABSENT: tenderness Extremities exam: PRESENT: full ROM, other - 3+ pitting edema. ABSENT: tenderness - 3+ edema Musculoskeletal exam: PRESENT: ambulatory Neurological exam: PRESENT: alert, awake, oriented to person, oriented to place. ABSENT: oriented to time, oriented to situation Psychiatric exam: PRESENT: appropriate affect Skin exam: PRESENT: other - Lower extremities appear dry Results Laboratory Results: 07/08/17 04:15 07/08/17 04:15 07/08/17 07/08/17 04:15 04:15 WBC 9.6 RBC 3.21 L Hgb 9.0 L Hct 28.0 L MCV 87 MCH 28.1 MCHC 32.2 RDW 17.1 H Plt Count 288 Seg Neutrophils % Not Reportable Lymphocytes % Not Reportable Monocytes % Not Reportable Eosinophils % Not Reportable Basophils % Not Reportable Absolute Neutrophils Not Reportable Absolute Lymphocytes Not Reportable Absolute Monocytes Not Reportable Absolute Eosinophils Not Reportable Absolute Basophils Not Reportable Sodium 146.2 H Potassium 5.1 H Chloride 107 Carbon Dioxide 28 Anion Gap 11 BUN 45 H Creatinine 1.64 H Est GFR ( Amer) 49 L Est GFR (Non-Af Amer) 40 L Glucose 110 Calcium 8.5 Magnesium 2.7 H 07/02/17 07/02/17 05:09 06:31 NT-Pro-B Natriuret Pep Cancelled 8420 H Impressions: Thoracentesis Ultrasound 07/01/17 00:00 IMPRESSION: SUCCESSFUL THORACENTESIS USING ULTRASOUND GUIDANCE. Chest X-Ray 07/05/17 00:00 IMPRESSION: INCREASING RIGHT MIDDLE LOBE AND RIGHT LOWER LOBE AIRSPACE DISEASE WITH ENLARGING PLEURAL EFFUSION. STABLE LEFT PLEURAL EFFUSION WITH AIRSPACE DISEASE. INTERVAL REMOVAL OF LEFT-SIDED CHEST TUBE Assessment & Plan - Diagnosis (1) Pleural effusion, right Is this a current diagnosis for this admission?: Yes Plan: Dr. Jose will attempt to place a Pleurx possibly today. Will continue with diuresis in an attempt to decrease fluid buildup (2) Hypertension Is this a current diagnosis for this admission?: Yes Plan: Continue current treatment (3) Lung mass Is this a current diagnosis for this admission?: Yes Plan: Talked to oncologist and recommends placement of pleurx to drain the effusion and hopefully to proceed with CT guided biopsy of the lung mass. 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 Qualifiers: Laterality: left Qualified Code(s): C78.02 - Secondary malignant neoplasm of left lung; C64.9 - Malignant neoplasm of unspecified kidney, except renal pelvis; C64.9 - Malignant neoplasm of unspecified kidney, except renal pelvis; C64.9 - Malignant neoplasm of unspecified kidney, except renal pelvis; C64.9 - Malignant neoplasm of unspecified kidney, except renal pelvis Is this a current diagnosis for this admission?: Yes Plan: As per Dr Mendez (5) Recurrent left pleural effusion Is this a current diagnosis for this admission?: Yes Plan: Appears to be stable as per chest xray (6) Right middle lobe pneumonia Qualifiers: Pneumonia type: due to unspecified organism Qualified Code(s): J18.1 - Lobar pneumonia, unspecified organism Is this a current diagnosis for this admission?: No Plan: Off antibiotic treatment since infiltrate more consistent with possible malignancy (7) Chronic respiratory failure Qualifiers: Respiratory failure complication: hypoxia Qualified Code(s): J96.11 - Chronic respiratory failure with hypoxia Is this a current diagnosis for this admission?: Yes Plan: Patient had been requiring use of oxygen as outpatient and continue its need despite thoracentesis (8) Leg swelling Is this a current diagnosis for this admission?: Yes Plan: May be due to pulmonary issues. Echocardiogram result pending (9) Hyperkalemia Is this a current diagnosis for this admission?: Yes Plan: Improve. Trend - Time Time Spent with patient: 15-24 minutes Medications reviewed and adjusted accordingly: Yes Anticipated discharge: Home with Homehealth Within: within 72 hours - Inpatient Certification Based on my medical assessment, after consideration of the patient's comorbidities, presenting symptoms, or acuity I expect that the services needed warrant INPATIENT care.: Yes I certify that my determination is in accordance with my understanding of Medicare's requirements for reasonable and necessary INPATIENT services [42 CFR 412.3e].: Yes Medical Necessity: Need Close Monitoring Due to Risk of Patient Decompensation
--- NOTE | 2017-07-08 18:17 | Operative Report ---
Nonrecallable Operative Report DATE OF SURGERY: 07/08/17 PREOPERATIVE DIAGNOSIS: Malignant left pleural effusion POSTOPERATIVE DIAGNOSIS: Same OPERATION: Insertion of Pleurx catheter left lateral chest SURGEON: BRANDON BOB ANESTHESIA: LMAC TISSUE REMOVED OR ALTERED: Fluid left chest COMPLICATIONS: None ESTIMATED BLOOD LOSS: Minimal INTRAOPERATIVE FINDINGS: See below PROCEDURE: Patient was taken to the preop holding area after discussion was had between the patient, staff, surgeon, as well as patient's . Patient then taken to the main operating room where appropriate level of LMAC anesthesia was induced. Of note the patient was a full code despite having metastatic renal cell carcinoma with progressive respiratory distress. Nonetheless we had the patient in a semi-upright position left side up. The posterior lateral chest wall was prepped and draped sterile fashion with the left arm tented anteriorly. Based on the pre-operative imaging, I felt the most appropriate place for the Pleurx catheter would be the lateral chest below the scapula which would put us into the pleural cavity slightly above the rim of pleural- based tumor. The skin was anesthetized with lidocaine, and 16-gauge needle and wire threaded into the left chest after several attempts were made to get into the left chest and aspirate fluid. A suitable site for exit of the Pleurx catheter was chosen on the lateral chest wall. The tract was anesthetized with 1% plain lidocaine, mary was made in the skin and the catheter was tunneled between the 2 incisions sites such that the cuff was under the subcutaneous tissue. We now threaded the small, medium dilators sequentially over the wire, and eventually the medium dilator with the strip away sheath over the wire. The wire and dilator removed and the free end of the Pleurx catheter was threaded into the left chest. The strip away sheath was removed. We made efforts to ensure that there was no kinking of the catheter as it entered the chest from the subcutaneous tract. The Pleurx catheter was hooked to the proprietary drainage device and immediately proceeded to drain approximately 400 cc of pleural fluid The catheter was secured to skin with 2-0 silk suture Biopatch dressing applied. The initial stick site was closed with 2-0 Vicryl. Large OpSite dressing applied. Patient tolerated the procedure reasonably well. He had no episodes of respiratory decompensation ; he was taken to the recovery room in stable condition. Upright chest x-ray pending at time of dictation.
--- NOTE | 2017-07-08 18:35 | RADIOLOGY REPORT (SQ) ---
EXAM DESCRIPTION: CHEST SINGLE VIEW COMPLETED DATE/TIME: 07/08/2017 6:22 pm REASON FOR STUDY: Post pleural drain cath insertion COMPARISON: 07/05/2017 EXAM PARAMETERS: NUMBER OF VIEWS: One view. TECHNIQUE: Single frontal radiographic view of the chest acquired. RADIATION DOSE: NA LIMITATIONS: None. FINDINGS: LUNGS AND PLEURA: Extensive bilateral pleural and parenchymal changes right greater than l eft are again identified. There appears to be interval decrease in the left pleural effusion status post insertion of a pleural drainage catheter. No pneumothorax is seen MEDIASTINUM AND HILAR STRUCTURES: No masses. Contour normal. HEART AND VASCULAR STRUCTURES: Cardiac silhouette is partially obscured but appears unchanged. BONES: No acute findings. HARDWARE: Transvenous pacemaker is unchanged in position. Pleural drainage catheter is identified pr ojected in the left lower hemithorax OTHER: No other significant finding. IMPRESSION: Extensive bilateral pleuroparenchymal changes right greater than left are again identifi ed. There appears to be interval decrease in size of the left pleural effusion status post insertion of a pleural drainage catheter. No pneumothorax is seen. Other findings as noted above. TECHNICAL DOCUMENTATION: JOB ID: [id number] [employer]- All Rights Reserved Reading location - IP/workstation name: [email or web address]
[2017-07-08] MEDS: CLOBETASOL PROPIONATE 0.05% CREAM 15 GM TP SCH (20:14)
[2017-07-08] MEDS: AMLODIPINE BESYLATE 5 MG TABLET PO SCH (20:14)
[2017-07-08] MEDS: FINASTERIDE 5 MG TABLET PO SCH (20:14)
[2017-07-08] MEDS: TEMAZEPAM 7.5 MG CAPSULE PO SCH (22:11)
[2017-07-08] MEDS: LATANOPROST 0.005% OPH SOLN 2.5 ML OP SCH (22:11)
[2017-07-08] MEDS: MELATONIN 5 MG TABLET PO SCH (22:11)
[2017-07-09 05:54] LABS: ANION GAP 9 (5-19); BLOOD UREA NITROGEN 44 mg/dL (7-20); CALCIUM 8.7 mg/dL (8.4-10.2); CARBON DIOXIDE 32 mmol/L (22-30); CHLORIDE 105 mmol/L (98-107); GLUCOSE 112 mg/dL (75-110); POTASSIUM 4.6 mmol/L (3.6-5.0)
[2017-07-09] MEDS: LANSOPRAZOLE 15 MG TAB.RAP.DR PO SCH (05:55)
[2017-07-09] MEDS: FUROSEMIDE INJ/PF 40 MG/4 ML SDV IV SCH (05:55)
[2017-07-09] MEDS: LEVOTHYROXINE SODIUM 0.025 MG TABLET PO SCH (05:55)
[2017-07-09] MEDS: IPRATROPIUM/ALBUTEROL 0.5-2.5 MG/3 ML AMPUL NEB SCH ×3 (08:13→19:59)
[2017-07-09] MEDS: LACTOBACILLUS ACIDOPHILUS 250 MG TAB PO SCH ×2 (09:47→22:03)
[2017-07-09] MEDS: AMLODIPINE BESYLATE 5 MG TABLET PO SCH (09:47)
[2017-07-09] MEDS: FINASTERIDE 5 MG TABLET PO SCH (09:48)
[2017-07-09] MEDS: GUAIFENESIN 600 MG TABLET.SA PO SCH ×2 (09:48→22:03)
[2017-07-09] MEDS: PANTOT AC/MIN OIL/PET HY-PHL OINT 50 GM TOP SCH ×2 (09:49→18:00)
[2017-07-09] MEDS: ENOXAPARIN SODIUM INJ 30 MG/0.3 ML DISP.SYRIN SUBCUT SCH (09:50)
[2017-07-09] MEDS: CLOBETASOL PROPIONATE 0.05% CREAM 15 GM TP SCH (09:53)
--- NOTE | 2017-07-09 12:03 | RADIOLOGY REPORT (SQ) ---
EXAM DESCRIPTION: CHEST 2 VIEWS COMPLETED DATE/TIME: 07/09/2017 11:18 am REASON FOR STUDY: follow up pleural effusion COMPARISON: 07/04/2017 EXAM PARAMETERS: NUMBER OF VIEWS: two views TECHNIQUE: Digital Frontal and Lateral radiographic views of the chest acquired. RADIATION DOSE: NA LIMITATIONS: none FINDINGS: LUNGS AND PLEURA: Small bilateral pleural effusions are again identified left greater than right. There is associated patchy airspace consolidation right greater than left which appears slig htly more extensive on the right as compared to the previous study. In the lateral projection there appears to be an air-fluid level projected posteriorly and the possibility of loculated hydropneumoth orax cannot be excluded. CT may be of value for further evaluation MEDIASTINUM AND HILAR STRUCTURES: No masses or contour abnormalities. HEART AND VASCULAR STRUCTURES: Cardiac silhouette is partially obscured but appears unchanged BONES: No acute findings. HARDWARE: Dual chamber transvenous pacemaker is unchanged in position. What is presumed represent a chest tube is projected in the left lower hemithorax OTHER: No other significant finding. IMPRESSION: Bilateral pleural effusions and associated patchy airspace consolidation as noted above. In the lateral projection there appears to be an air-fluid level projected posteriorly and the poss ibility of a loculated hydropneumothorax cannot be excluded. CT may be of value for further evaluati on. Other findings as noted above TECHNICAL DOCUMENTATION: JOB ID: [id number] [employer]- All Rights Reserved Reading location - IP/workstation name: [email or web address]
--- NOTE | 2017-07-09 15:44 | PROGRESS NOTE E ---
Progress Note NAME: AISSATOU IVERSON : 1930 AGE: 86Y DATE: 07/09/2017 ROOM: 406 SUBJECTIVE: The patient was seen at the bedside. He had a Pleurx catheter placed. He appears to be breathing more comfortably. I explained to him that I am still awaiting the diagnosis of malignancy to decide on appropriate treatment. An attempt was made at a CT-guided biopsy yesterday; however, he was short of breath and was probably because of the fluid. He will benefit from physical therapy to help him to get up and start moving once again. PLAN: I recommend obtaining a CT-guided biopsy to help with a diagnosis. Physical therapy will also be of benefit. My plan is to see him for followup as an outpatient following his discharge. I thank you for allowing me to be a part of his care during his hospitalization. DICTATING PHYSICIAN: AMELIA LOCO M.D. [id number] PHY#: [id number] ID: [id number] JOB#: [id number] ACCT: [id number] cc: >
--- NOTE | 2017-07-09 16:38 | PDOC PROGRESS REPORT ---
Subjective Progress Note for:: 07/09/17 Subjective:: Patient refers that shortness of breath is better. His legs are still swollen. Patient also complains of having a dry mouth. He had Pleurx placed yesterday. Neighbors are at bedside Review of systems All organ systems evaluated and negative except as in subjective All significant diagnostics and laboratories had been reviewed Reason For Visit: R91.8 OTHER NONSPECIFIC ABNORMAL FINDING OF LUNG F Physical Exam Vital Signs: Temp Pulse Resp BP Pulse Ox 97.7 F 60 20 115/42 L 95 07/09/17 04:00 07/09/17 04:00 07/09/17 04:00 07/09/17 04:00 07/09/17 04:00 Pulse Oximeter Continuous Start: 07/01/17 17: 32 Freq: RTQ4 Status: Active Document 07/09/17 04:00 SFL (Rec: 07/09/17 05:11 SFL [email or web address]) Pulse Oximetry Assessment Oxygen Saturation (92-100) 95 Oxygen Flow Rate (L/min) 4 Oxygen Delivery Method Nasal Cannula Equipment Usage Equipment in Use Continuous SpO2 Machine # 14 Intake & Output 07/08/17 07/09/17 07/10/17 06:59 06:59 06:59 Intake Total 270 768 Output Total 300 1325 Balance -30 -557 Weight 81 kg 81.5 kg General appearance: PRESENT: cooperative, mild distress, well-developed, well- nourished Head exam: PRESENT: atraumatic, normocephalic Eye exam: PRESENT: conjunctiva pink, EOMI, PERRLA Ear exam: PRESENT: normal external ear exam Mouth exam: PRESENT: dry mucosa Neck exam: PRESENT: full ROM. ABSENT: JVD, lymphadenopathy, tenderness Respiratory exam: PRESENT: crackles, decreased breath sounds Cardiovascular exam: PRESENT: RRR. ABSENT: diastolic murmur, systolic murmur Vascular exam: PRESENT: normal capillary refill GI/Abdominal exam: PRESENT: normal bowel sounds, soft. ABSENT: tenderness Extremities exam: PRESENT: full ROM, +2 edema Musculoskeletal exam: PRESENT: ambulatory Neurological exam: PRESENT: alert, awake, oriented to person, oriented to place , oriented to time, oriented to situation, CN II-XII grossly intact Psychiatric exam: PRESENT: appropriate affect, normal mood Skin exam: PRESENT: normal color Results Laboratory Results: 07/08/17 04:15 07/09/17 04:31 07/09/17 04:31 Sodium 146.0 H Potassium 4.6 Chloride 105 Carbon Dioxide 32 H Anion Gap 9 BUN 44 H Creatinine 1.80 H Est GFR ( Amer) 44 L Est GFR (Non-Af Amer) 36 L Glucose 112 H Calcium 8.7 07/02/17 07/02/17 05:09 06:31 NT-Pro-B Natriuret Pep Cancelled 8420 H Impressions: Thoracentesis Ultrasound 07/01/17 00:00 IMPRESSION: SUCCESSFUL THORACENTESIS USING ULTRASOUND GUIDANCE. Chest X-Ray 07/08/17 00:00 IMPRESSION: Extensive bilateral pleuroparenchymal changes right greater than left are again identified. There appears to be interval decrease in size of the left pleural effusion status post insertion of a pleural drainage catheter. No pneumothorax is seen. Other findings as noted above. Assessment & Plan - Diagnosis (1) Pleural effusion, right Is this a current diagnosis for this admission?: Yes Plan: Order follow-up chest x-ray. Cytology pending. (2) Hypertension Is this a current diagnosis for this admission?: Yes Plan: Continue current treatment (3) Lung mass Is this a current diagnosis for this admission?: Yes Plan: Goal is to have lung mass biopsy to confirm metastatic renal cell carcinoma aiming by oncology to place patient on oral medication. 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 Qualifiers: Laterality: left Qualified Code(s): C78.02 - Secondary malignant neoplasm of left lung; C64.9 - Malignant neoplasm of unspecified kidney, except renal pelvis; C64.9 - Malignant neoplasm of unspecified kidney, except renal pelvis; C64.9 - Malignant neoplasm of unspecified kidney, except renal pelvis; C64.9 - Malignant neoplasm of unspecified kidney, except renal pelvis Is this a current diagnosis for this admission?: Yes Plan: As per Dr Mendez (5) Recurrent left pleural effusion Is this a current diagnosis for this admission?: Yes Plan: Order follow-up chest x-ray (6) Right middle lobe pneumonia Qualifiers: Pneumonia type: due to unspecified organism Qualified Code(s): J18.1 - Lobar pneumonia, unspecified organism Is this a current diagnosis for this admission?: No Plan: Off antibiotic treatment since infiltrate more consistent with possible malignancy (7) Chronic respiratory failure Qualifiers: Respiratory failure complication: hypoxia Qualified Code(s): J96.11 - Chronic respiratory failure with hypoxia Is this a current diagnosis for this admission?: Yes Plan: Continues requiring oxygen supplementation (8) Leg swelling Is this a current diagnosis for this admission?: Yes Plan: Decrease IV Lasix due to complaints of dry mouth. Echocardiogram consistent with severe pulmonary hypertension (9) Hyperkalemia Is this a current diagnosis for this admission?: Yes Plan: Resolved (10) Pulmonary hypertension Is this a current diagnosis for this admission?: Yes Plan: Likely multifactorial. To continue diuresis - Time Time Spent with patient: 15-24 minutes Medications reviewed and adjusted accordingly: Yes Anticipated discharge: Home with Homehealth Within: Other - Unable to tell at this time - Inpatient Certification Based on my medical assessment, after consideration of the patient's comorbidities, presenting symptoms, or acuity I expect that the services needed warrant INPATIENT care.: Yes I certify that my determination is in accordance with my understanding of Medicare's requirements for reasonable and necessary INPATIENT services [42 CFR 412.3e].: Yes Medical Necessity: Significant Comorbidiites Make Outpatient Treatment Too Risky , Need Close Monitoring Due to Risk of Patient Decompensation, Need for Surgery
[2017-07-09] MEDS: FUROSEMIDE INJ/PF 20 MG/2 ML SDV IV SCH (18:30)
[2017-07-09] MEDS: LATANOPROST 0.005% OPH SOLN 2.5 ML OP SCH (22:03)
[2017-07-09] MEDS: MELATONIN 5 MG TABLET PO SCH (22:08)
[2017-07-09] MEDS: TEMAZEPAM 7.5 MG CAPSULE PO SCH (22:31)
[2017-07-10] MEDS: LEVOTHYROXINE SODIUM 0.025 MG TABLET PO SCH (05:29)
[2017-07-10] MEDS: LANSOPRAZOLE 15 MG TAB.RAP.DR PO SCH (05:29)
[2017-07-10] MEDS: FUROSEMIDE INJ/PF 20 MG/2 ML SDV IV SCH ×2 (05:30→16:25)
[2017-07-10 06:14] LABS: HEMATOCRIT 27.3 % (37.9-51.0); HEMOGLOBIN 8.8 g/dL (13.5-17.0); MEAN CORPUSCULAR HEMOGLOBIN 27.8 pg (27.0-33.4); MEAN CORPUSCULAR HGB CONC 32.1 g/dL (32.0-36.0); MEAN CORPUSCULAR VOLUME 87 fl (80-97); PLATELET COUNT 342 10^3/uL (150-450); RED BLOOD COUNT 3.16 10^6/uL (4.35-5.55); RED CELL DISTRIBUTION WIDTH 17.1 % (11.5-14.0); WHITE BLOOD COUNT 9.9 10^3/uL (4.0-10.5)
[2017-07-10 06:33] LABS: ANION GAP 12 (5-19); BLOOD UREA NITROGEN 43 mg/dL (7-20); CALCIUM 8.4 mg/dL (8.4-10.2); CARBON DIOXIDE 31 mmol/L (22-30); CHLORIDE 105 mmol/L (98-107); GLUCOSE 108 mg/dL (75-110); POTASSIUM 4.7 mmol/L (3.6-5.0); SODIUM 148.2 mmol/L (137-145)
[2017-07-10 06:55] LABS: ABSOLUTE LYMPHOCYTES# (MANUAL) 0.4 10^3/uL (0.5-4.7); ABSOLUTE MONOCYTES # (MANUAL) 0.5 10^3/uL (0.1-1.4); ABSOLUTE NEUTROPHILS# (MANUAL) 8.8 10^3/uL (1.7-8.2); BASOPHILS % (MANUAL) 0 % (0-2); EOSINOPHILS % (MANUAL) 2 % (0-6); LYMPHOCYTES % (MANUAL) 4 % (13-45); MONOCYTES % (MANUAL) 5 % (3-13); SEGMENTED NEUTROPHILS % (MAN) 89 % (42-78); TOTAL CELLS COUNTED 100
[2017-07-10 07:04] LABS: ANISOCYTOSIS 1+; HYPOCHROMASIA SLIGHT; POLYCHROMASIA SLIGHT; TOXIC GRANULATION SLIGHT
[2017-07-10 07:05] LABS: OVALOCYTES SLIGHT; PLATELET COMMENT ADEQUATE; POIKILOCYTOSIS SLIGHT
[2017-07-10] MEDS: IPRATROPIUM/ALBUTEROL 0.5-2.5 MG/3 ML AMPUL NEB SCH ×3 (08:07→19:45)
[2017-07-10] MEDS: ENOXAPARIN SODIUM INJ 30 MG/0.3 ML DISP.SYRIN SUBCUT SCH (08:28)
[2017-07-10] MEDS: LACTOBACILLUS ACIDOPHILUS 250 MG TAB PO SCH ×2 (08:39→22:59)
[2017-07-10] MEDS: AMLODIPINE BESYLATE 5 MG TABLET PO SCH (08:40)
[2017-07-10] MEDS: PANTOT AC/MIN OIL/PET HY-PHL OINT 50 GM TOP SCH ×2 (08:41→16:25)
[2017-07-10] MEDS: CLOBETASOL PROPIONATE 0.05% CREAM 15 GM TP SCH (08:41)
[2017-07-10] MEDS: GUAIFENESIN 600 MG TABLET.SA PO SCH ×2 (08:41→22:59)
[2017-07-10] MEDS: FINASTERIDE 5 MG TABLET PO SCH (10:13)
[2017-07-10] MEDS ORDERED: MIDAZOLAM 2 MG/2 ML INJ ONE (11:43)
[2017-07-10] MEDS ORDERED: FENTANYL CITRATE INJ/PF 100 MCG/2 ML AMPUL ONE (11:43)
[2017-07-10] MEDS ORDERED: LIDOCAINE 1% INJ-PF (10 MG/ML) 30 ML SDV ONE (11:43)
--- NOTE | 2017-07-10 13:21 | RADIOLOGY REPORT (SQ) ---
EXAM DESCRIPTION: CHEST SINGLE VIEW portable COMPLETED DATE/TIME: 07/10/2017 1:01 pm REASON FOR STUDY: POST LEFT LUNG BIOPSY COMPARISON: None. EXAM PARAMETERS: NUMBER OF VIEWS: One view. TECHNIQUE: Single frontal radiographic view of the chest acquired. Portable RADIATION DOSE: NA LIMITATIONS: None. FINDINGS: LUNGS AND PLEURA: Continued basilar consolidation more prominent on the right with pleural fluid. No pneumothorax. MEDIASTINUM AND HILAR STRUCTURES: Stable. HEART AND VASCULAR STRUCTURES: Heart stable, obscured by basilar changes. BONES: No acute findings. HARDWARE: Transvenous pacer. OTHER: No other significant finding. IMPRESSION: Continued basilar consolidation with pleural fluid. No pneumothorax. TECHNICAL DOCUMENTATION: JOB ID: [id number] [email or web address]- All Rights Reserved Reading location - IP/workstation name: [email or web address]
--- NOTE | 2017-07-10 13:44 | RADIOLOGY REPORT (SQ) ---
EXAM DESCRIPTION: CT CHEST WITHOUT; CT NEEDLE PLACEMENT; CT BIOPSY LUNG/MEDIASTINUM COMPLETED DATE/TIME: 07/10/2017 12:50 pm; 07/10/2017 1:20 pm REASON FOR STUDY: evalaute for hydropneumothorax; LUNG MASS- LUNG BX; lung mass R91.8 OTHER NONSPEC [facility] ABNORM[facility] FINDING OF LUNG FIELD Z79.01 INTERMEDIATE (CURRENT) USE OF ANTICOAGULANTS COMPARISON: None. FLUORO TIME: 33 seconds LIMITATIONS: None. PROCEDURE: After obtaining informed consent, the patient was brought to the CT suite and was placed prone oblique right side down on the CT gurney. The patient was prepped and draped in the usual steri le fashion . Axial images were obtained for targeting of theleft lower lobe pleural lesion. An appro priate access site was selected. IV sedation was administered and physician direction by the register ed nurse using 0 milligrams of Versed and 25 micrograms of fentanyl. Physiologic monitoring was provi ded before, during, and after sedation. The total sedation time was 30 minutes. Documentation face to face time, the performing proceduralist, spent monitoring the patient: [address] scanners at this facility use dose modulation, iterative reconstruction, and/or weight based d osing when appropriate to reduce radiation dose to as low as reasonably achievable (ALARA). [facility]: Dose Right [facility]: CareDose [facility]: Dose Right [facility]: Teradose 4D [facility]: [employer] After sterile skin prep and local lidocaine for skin and deep tissue anesthesia, a coaxial biopsy nee dle was used to obtain multiple cores of tissue. The biopsy tissue was submitted to the lab. There we re no immediate complications. Pathology is pending at the time of dictation. IMPRESSION: SUCCESSFUL CT GUIDED PERCUTANEOUS LUNG BIOPSY OF THE LEFT LOWER LOBE PLEURAL LESION. COMMENT: Patient medication list reviewed: Yes- Quality ID# [id number]:Eligible professional attests to doc umenting in the medical record they obtained, updated, or reviewed the patient's current medications. . Quality ID 145: Final reports for procedures using fluoroscopy that document radiation exposure reid rudolph, or exposure time and number of fluorographic images (if radiation exposure indices are not avail able) Quality ID # [id number]: Final reports with documentation of one or more dose reduction techniques (e.g., Au tomated exposure control, adjustment of the mA and/or kV according to patient size, use of iterative reconstruction technique) TECHNICAL DOCUMENTATION: JOB ID: [id number] [employer]- All Rights Reserved Reading location - IP/workstation name: [facility]
--- NOTE | 2017-07-10 13:44 | RADIOLOGY REPORT (SQ) ---
EXAM DESCRIPTION: CT CHEST WITHOUT; CT NEEDLE PLACEMENT; CT BIOPSY LUNG/MEDIASTINUM COMPLETED DATE/TIME: 07/10/2017 12:50 pm; 07/10/2017 1:20 pm REASON FOR STUDY: evalaute for hydropneumothorax; LUNG MASS- LUNG BX; lung mass R91.8 OTHER [facility]SPEC [facility]IND[facility] OF LUNG FIELD Z79.01 HALFWAY (CURRENT) USE OF ANTICOAGULANTS COMPARISON: None. FLUORO TIME: 33 seconds LIMITATIONS: None. PROCEDURE: After obtaining informed consent, the patient was brought to the CT suite and was placed prone oblique right side down on the CT gurney. The patient was prepped and draped in the usual steri le fashion . Axial images were obtained for targeting of theleft lower lobe pleural lesion. An appro priate access site was selected. IV sedation was administered and physician direction by the register ed nurse using 0 milligrams of Versed and 25 micrograms of fentanyl. Physiologic monitoring was provi ded before, during, and after sedation. The total sedation time was 30 minutes. Documentation face to face time, the performing proceduralist, spent monitoring the patient: [address] scanners at this facility use dose modulation, iterative reconstruction, and/or weight based d osing when appropriate to reduce radiation dose to as low as reasonably achievable (ALARA). [facility]: Dose Right [facility]: CareDose [facility]: Dose Right [facility]: Teradose 4D [facility]: [employer] After sterile skin prep and local lidocaine for skin and deep tissue anesthesia, a coaxial biopsy nee dle was used to obtain multiple cores of tissue. The biopsy tissue was submitted to the lab. There we re no immediate complications. Pathology is pending at the time of dictation. IMPRESSION: SUCCESSFUL CT GUIDED PERCUTANEOUS LUNG BIOPSY OF THE LEFT LOWER LOBE PLEURAL LESION. COMMENT: Patient medication list reviewed: Yes- Quality ID# [id number]:Eligible professional attests to doc umenting in the medical record they obtained, updated, or reviewed the patient's current medications. . Quality ID 145: Final reports for procedures using fluoroscopy that document radiation exposure reid rudolph, or exposure time and number of fluorographic images (if radiation exposure indices are not avail able) Quality ID # 436: Final reports with documentation of one or more dose reduction techniques (e.g., Au tomated exposure control, adjustment of the mA and/or kV according to patient size, use of iterative reconstruction technique) TECHNICAL DOCUMENTATION: JOB ID: [id number] [employer]- All Rights Reserved Reading location - IP/workstation name: [facility]
--- NOTE | 2017-07-10 13:44 | RADIOLOGY REPORT (SQ) ---
EXAM DESCRIPTION: CT CHEST WITHOUT; CT NEEDLE PLACEMENT; CT BIOPSY LUNG/MEDIASTINUM COMPLETED DATE/TIME: 07/10/2017 12:50 pm; 07/10/2017 1:20 pm REASON FOR STUDY: evalaute for hydropneumothorax; LUNG MASS- LUNG BX; lung mass R91.8 OTHER [facility] OF LUNG FIELD Z79.01 PRISON (CURRENT) USE OF ANTICOAGULANTS COMPARISON: None. FLUORO TIME: 33 seconds LIMITATIONS: None. PROCEDURE: After obtaining informed consent, the patient was brought to the CT suite and was placed prone oblique right side down on the CT gurney. The patient was prepped and draped in the usual steri le fashion . Axial images were obtained for targeting of theleft lower lobe pleural lesion. An appro priate access site was selected. IV sedation was administered and physician direction by the register ed nurse using 0 milligrams of Versed and 25 micrograms of fentanyl. Physiologic monitoring was provi ded before, during, and after sedation. The total sedation time was 30 minutes. Documentation face to face time, the performing proceduralist, spent monitoring the patient: [address] scanners at this facility use dose modulation, iterative reconstruction, and/or weight based d osing when appropriate to reduce radiation dose to as low as reasonably achievable (ALARA). [facility]: Dose Right [facility]: CareDose [facility]: Dose Right [facility]: Teradose 4D [facility]: [employer] After sterile skin prep and local lidocaine for skin and deep tissue anesthesia, a coaxial biopsy nee dle was used to obtain multiple cores of tissue. The biopsy tissue was submitted to the lab. There we re no immediate complications. Pathology is pending at the time of dictation. IMPRESSION: SUCCESSFUL CT GUIDED PERCUTANEOUS LUNG BIOPSY OF THE LEFT LOWER LOBE PLEURAL LESION. COMMENT: Patient medication list reviewed: Yes- Quality ID# [id number]:Eligible professional attests to doc umenting in the medical record they obtained, updated, or reviewed the patient's current medications. . Quality ID 145: Final reports for procedures using fluoroscopy that document radiation exposure reid rudolph, or exposure time and number of fluorographic images (if radiation exposure indices are not avail able) Quality ID # 436: Final reports with documentation of one or more dose reduction techniques (e.g., Au tomated exposure control, adjustment of the mA and/or kV according to patient size, use of iterative reconstruction technique) TECHNICAL DOCUMENTATION: JOB ID: [id number] [employer]- All Rights Reserved Reading location - IP/workstation name: [facility]
--- NOTE | 2017-07-10 15:33 | RADIOLOGY REPORT (SQ) ---
EXAM DESCRIPTION: CHEST SINGLE VIEW COMPLETED DATE/TIME: 07/10/2017 3:10 pm REASON FOR STUDY: POST LEFT LUNG BIOPSY--- 2 HR FILM COMPARISON: 07/10/2017 EXAM PARAMETERS: NUMBER OF VIEWS: One view. TECHNIQUE: Single frontal radiographic view of the chest acquired. RADIATION DOSE: NA LIMITATIONS: None. FINDINGS: LUNGS AND PLEURA: No pneumothorax is seen. The previously described bibasilar airspace co nsolidations and associated pleural effusions appear unchanged. MEDIASTINUM AND HILAR STRUCTURES: Stable HEART AND VASCULAR STRUCTURES: Cardiac silhouette is partially obscured but appears unchanged. BONES: No acute findings. HARDWARE: Transvenous pacemaker is again identified. OTHER: No other significant finding. IMPRESSION: No significant interval change. No evidence for pneumothorax. Other findings as noted above. TECHNICAL DOCUMENTATION: JOB ID: [id number] [employer]- All Rights Reserved Reading location - IP/workstation name: [email or web address]
--- NOTE | 2017-07-10 17:26 | PDOC PROGRESS REPORT ---
Subjective Progress Note for:: 07/10/17 Subjective:: Patient was able to have his lung biopsy today. He tolerated the procedure well. No chest pain. He has difficulty breathing when he moves about too much. He has been eating and drinking without difficulty. Does not feel constipated. No urinary complaints. No acute pain. No cough or bloody sputum. No pain at the Pleurx site. A little bit of pain at the biopsy site. Leg edema persists. Reason For Visit: R91.8 OTHER NONSPECIFIC ABNORMAL FINDING OF LUNG F Physical Exam Vital Signs: Temp Pulse Resp BP Pulse Ox 97.8 F 77 20 117/53 L 90 L 07/10/17 08:00 07/10/17 14:20 07/10/17 14:20 07/10/17 08:00 07/10/17 15:44 Pulse Oximeter Continuous Start: 07/01/17 17: 32 Freq: RTQ4 Status: Active Document 07/10/17 15:44 HCR (Rec: 07/10/17 15:44 HCR [email or web address]) Pulse Oximetry Assessment Oxygen Saturation (92-100) 90 Oxygen Flow Rate (L/min) 5 Oxygen Delivery Method Nasal Cannula Equipment Usage Equipment in Use Continuous SpO2 Machine # 14 Intake & Output 07/09/17 07/10/17 07/11/17 06:59 06:59 06:59 Intake Total 768 943 Output Total 1325 1875 Balance -557 -932 Weight 81.5 kg General appearance: PRESENT: no acute distress, cooperative, well-developed, well-nourished Head exam: PRESENT: atraumatic, normocephalic Eye exam: PRESENT: conjunctiva pink, EOMI. ABSENT: scleral icterus Ear exam: PRESENT: normal external ear exam Mouth exam: PRESENT: moist, tongue midline Neck exam: ABSENT: tenderness Respiratory exam: PRESENT: crackles, decreased breath sounds, other - Examination of chest wall shows Pleurx catheter in the left chest without complication, biopsy site with dressing clean dry and intact. ABSENT: unlabored , wheezes Cardiovascular exam: PRESENT: RRR. ABSENT: systolic murmur Pulses: PRESENT: normal radial pulses GI/Abdominal exam: PRESENT: normal bowel sounds, soft. ABSENT: distended, mass , tenderness Rectal exam: PRESENT: deferred Extremities exam: PRESENT: +2 edema. ABSENT: calf tenderness Musculoskeletal exam: PRESENT: ambulatory Neurological exam: PRESENT: alert, awake, oriented to person, oriented to place , oriented to situation, CN II-XII grossly intact Psychiatric exam: PRESENT: appropriate affect. ABSENT: anxious Skin exam: PRESENT: dry, warm Results Laboratory Results: 07/10/17 05:38 07/10/17 05:38 07/10/17 07/10/17 05:38 05:38 WBC 9.9 RBC 3.16 L Hgb 8.8 L Hct 27.3 L MCV 87 MCH 27.8 MCHC 32.1 RDW 17.1 H Plt Count 342 Seg Neutrophils % Not Reportable Lymphocytes % Not Reportable Monocytes % Not Reportable Eosinophils % Not Reportable Basophils % Not Reportable Absolute Neutrophils Not Reportable Absolute Lymphocytes Not Reportable Absolute Monocytes Not Reportable Absolute Eosinophils Not Reportable Absolute Basophils Not Reportable Sodium 148.2 H Potassium 4.7 Chloride 105 Carbon Dioxide 31 H Anion Gap 12 BUN 43 H Creatinine 1.76 H Est GFR ( Amer) 45 L Est GFR (Non-Af Amer) 37 L Glucose 108 Calcium 8.4 Magnesium 2.5 H 07/02/17 07/02/17 05:09 06:31 NT-Pro-B Natriuret Pep Cancelled 8420 H Impressions: Thoracentesis Ultrasound 07/01/17 00:00 IMPRESSION: SUCCESSFUL THORACENTESIS USING ULTRASOUND GUIDANCE. Chest X-Ray 07/10/17 00:00 IMPRESSION: No significant interval change. No evidence for pneumothorax. Other findings as noted above. Guidance Needle Placement CT 07/10/17 00:00 IMPRESSION: SUCCESSFUL CT GUIDED PERCUTANEOUS LUNG BIOPSY OF THE LEFT LOWER LOBE PLEURAL LESION. Lung Biopsy CT 07/10/17 00:00 IMPRESSION: SUCCESSFUL CT GUIDED PERCUTANEOUS LUNG BIOPSY OF THE LEFT LOWER LOBE PLEURAL LESION. Chest CT 07/10/17 08:00 IMPRESSION: SUCCESSFUL CT GUIDED PERCUTANEOUS LUNG BIOPSY OF THE LEFT LOWER LOBE PLEURAL LESION. Assessment & Plan - Diagnosis (1) Bilateral pleural effusion Is this a current diagnosis for this admission?: Yes Plan: Initially left was greater than right, now he has a Pleurx in the left side. Right is slightly greater than left at this time. Overall stable from yesterday. But also overall improved from admission. His respiratory status has also improved. (2) Metastatic renal cell carcinoma to lung Qualifiers: Laterality: left Qualified Code(s): C78.02 - Secondary malignant neoplasm of left lung; C64.9 - Malignant neoplasm of unspecified kidney, except renal pelvis; C64.9 - Malignant neoplasm of unspecified kidney, except renal pelvis; C64.9 - Malignant neoplasm of unspecified kidney, except renal pelvis; C64.9 - Malignant neoplasm of unspecified kidney, except renal pelvis Is this a current diagnosis for this admission?: Yes Plan: Plan per oncology who is following the patient during this hospitalization (3) Chronic respiratory failure Qualifiers: Respiratory failure complication: hypoxia Qualified Code(s): J96.11 - Chronic respiratory failure with hypoxia Is this a current diagnosis for this admission?: Yes Plan: 2 factorial. Continue to treat underlying conditions and continue oxygen. Patient is stable from this perspective (4) Hypertension Is this a current diagnosis for this admission?: Yes Plan: stable continue current care (5) Leg swelling Is this a current diagnosis for this admission?: Yes Plan: cont current lasix dose, watch renal function (6) Lung mass Is this a current diagnosis for this admission?: Yes Plan: Patient underwent left lung biopsy today. Stable post procedure. No evident pneumothorax at this point. Results pending. (7) Pulmonary hypertension Is this a current diagnosis for this admission?: Yes Plan: Likely multifactorial. Continue diuresis for symptom management. - Time Time Spent with patient: 25-34 minutes Anticipated discharge: Home with Homehealth - Inpatient Certification Based on my medical assessment, after consideration of the patient's comorbidities, presenting symptoms, or acuity I expect that the services needed warrant INPATIENT care.: Yes I certify that my determination is in accordance with my understanding of Medicare's requirements for reasonable and necessary INPATIENT services [42 CFR 412.3e].: Yes Medical Necessity: Significant Comorbidiites Make Outpatient Treatment Too Risky , Need Close Monitoring Due to Risk of Patient Decompensation, Risk of Complication if Not Cared For in Hospital
[2017-07-10] MEDS: TEMAZEPAM 7.5 MG CAPSULE PO SCH (22:59)
[2017-07-10] MEDS: LATANOPROST 0.005% OPH SOLN 2.5 ML OP SCH (22:59)
[2017-07-10] MEDS: MELATONIN 5 MG TABLET PO SCH (22:59)
[2017-07-11] MEDS: FUROSEMIDE INJ/PF 20 MG/2 ML SDV IV SCH (05:21)
[2017-07-11] MEDS: LEVOTHYROXINE SODIUM 0.025 MG TABLET PO SCH (05:21)
[2017-07-11] MEDS: LANSOPRAZOLE 15 MG TAB.RAP.DR PO SCH (05:21)
[2017-07-11 05:25] LABS: HEMATOCRIT 27.4 % (37.9-51.0); HEMOGLOBIN 8.7 g/dL (13.5-17.0); MEAN CORPUSCULAR HEMOGLOBIN 27.5 pg (27.0-33.4); MEAN CORPUSCULAR HGB CONC 31.7 g/dL (32.0-36.0); MEAN CORPUSCULAR VOLUME 87 fl (80-97); PLATELET COUNT 285 10^3/uL (150-450); RED BLOOD COUNT 3.16 10^6/uL (4.35-5.55); WHITE BLOOD COUNT 8.5 10^3/uL (4.0-10.5)
[2017-07-11 05:46] LABS: ANION GAP 9 (5-19); BLOOD UREA NITROGEN 42 mg/dL (7-20); CALCIUM 8.4 mg/dL (8.4-10.2); CARBON DIOXIDE 35 mmol/L (22-30); CHLORIDE 103 mmol/L (98-107); GLUCOSE 120 mg/dL (75-110); POTASSIUM 4.5 mmol/L (3.6-5.0); SODIUM 146.5 mmol/L (137-145)
[2017-07-11] MEDS: IPRATROPIUM/ALBUTEROL 0.5-2.5 MG/3 ML AMPUL NEB SCH ×3 (07:50→19:32)
[2017-07-11] MEDS: CLOBETASOL PROPIONATE 0.05% CREAM 15 GM TP SCH (10:47)
[2017-07-11] MEDS: GUAIFENESIN 600 MG TABLET.SA PO SCH ×2 (10:48→22:39)
[2017-07-11] MEDS: FINASTERIDE 5 MG TABLET PO SCH (10:48)
[2017-07-11] MEDS: PANTOT AC/MIN OIL/PET HY-PHL OINT 50 GM TOP SCH ×2 (10:48→19:06)
[2017-07-11] MEDS: LACTOBACILLUS ACIDOPHILUS 250 MG TAB PO SCH ×2 (10:48→22:39)
[2017-07-11] MEDS: AMLODIPINE BESYLATE 5 MG TABLET PO SCH (10:49)
[2017-07-11] MEDS: ENOXAPARIN SODIUM INJ 30 MG/0.3 ML DISP.SYRIN SUBCUT SCH (10:54)
--- NOTE | 2017-07-11 14:38 | PDOC PROGRESS REPORT ---
Subjective Progress Note for:: 07/11/17 Subjective:: Mr. Wilson is feeling much better today he states that he was yesterday. His left chest biopsy site is still a little bit tender. He is breathing better than he was yesterday. No cough or sputum production. No fevers or chills. Appetite is good. No constipation. Anxious about biopsy results. Reason For Visit: R91.8 OTHER NONSPECIFIC ABNORMAL FINDING OF LUNG F Physical Exam Vital Signs: Temp Pulse Resp BP Pulse Ox 98.2 F 60 18 117/44 L 96 07/11/17 11:30 07/11/17 13:45 07/11/17 13:45 07/11/17 11:30 07/11/17 13:45 Pulse Oximeter Continuous Start: 07/01/17 17: 32 Freq: RTQ4 Status: Active Document 07/11/17 11:48 TPO (Rec: 07/11/17 11:49 TPO [email or web address]) Pulse Oximetry Assessment Oxygen Saturation (92-100) 94 Oxygen Flow Rate (L/min) 5 Oxygen Delivery Method Nasal Cannula Fraction of Inspired Oxygen (FIO2) 40 Equipment Usage Equipment in Use Continuous SpO2 Machine # 14 Intake & Output 07/10/17 07/11/17 07/12/17 06:59 06:59 06:59 Intake Total 943 1180 Output Total 1875 1600 Balance -932 -420 Weight 81.6 kg General appearance: PRESENT: no acute distress, cooperative Head exam: PRESENT: atraumatic, normocephalic Eye exam: PRESENT: conjunctiva pink, EOMI. ABSENT: scleral icterus Mouth exam: PRESENT: moist, neck supple Neck exam: PRESENT: lymphadenopathy Respiratory exam: PRESENT: chest wall tenderness, decreased breath sounds, rales , rhonchi, other - Left lateral chest with Pleurx catheter in place, without complication. Biopsy site dressing clean dry and intact. Cardiovascular exam: PRESENT: RRR. ABSENT: systolic murmur Pulses: PRESENT: normal radial pulses GI/Abdominal exam: PRESENT: normal bowel sounds, soft. ABSENT: distended, guarding, tenderness Rectal exam: PRESENT: deferred Extremities exam: PRESENT: pedal edema, +1 edema Neurological exam: PRESENT: alert, awake, oriented to person, oriented to place , oriented to situation, CN II-XII grossly intact Psychiatric exam: PRESENT: appropriate affect. ABSENT: anxious Skin exam: PRESENT: normal color, warm Results Laboratory Results: 07/11/17 05:01 07/11/17 05:01 07/11/17 07/11/17 05:01 05:01 WBC 8.5 RBC 3.16 L Hgb 8.7 L Hct 27.4 L MCV 87 MCH 27.5 MCHC 31.7 L RDW 17.0 H Plt Count 285 Sodium 146.5 H Potassium 4.5 Chloride 103 Carbon Dioxide 35 H Anion Gap 9 BUN 42 H Creatinine 1.74 H Est GFR ( Amer) 45 L Est GFR (Non-Af Amer) 37 L Glucose 120 H Calcium 8.4 07/02/17 07/02/17 05:09 06:31 NT-Pro-B Natriuret Pep Cancelled 8420 H Impressions: Thoracentesis Ultrasound 07/01/17 00:00 IMPRESSION: SUCCESSFUL THORACENTESIS USING ULTRASOUND GUIDANCE. Chest X-Ray 07/10/17 00:00 IMPRESSION: No significant interval change. No evidence for pneumothorax. Other findings as noted above. Guidance Needle Placement CT 07/10/17 00:00 IMPRESSION: SUCCESSFUL CT GUIDED PERCUTANEOUS LUNG BIOPSY OF THE LEFT LOWER LOBE PLEURAL LESION. Lung Biopsy CT 07/10/17 00:00 IMPRESSION: SUCCESSFUL CT GUIDED PERCUTANEOUS LUNG BIOPSY OF THE LEFT LOWER LOBE PLEURAL LESION. Chest CT 07/10/17 08:00 IMPRESSION: SUCCESSFUL CT GUIDED PERCUTANEOUS LUNG BIOPSY OF THE LEFT LOWER LOBE PLEURAL LESION. Assessment & Plan - Diagnosis (1) Bilateral pleural effusion Is this a current diagnosis for this admission?: Yes Plan: Improving with diuresis and with placement of left chest tube for pleural effusion drainage. Pleurx to be opened and drained today.Lasix to be placed on hold for possible developing contraction alkalosis. 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 Oncology is following. Biopsy results pending. (3) Chronic respiratory failure Qualifiers: Respiratory failure complication: hypoxia Qualified Code(s): J96.11 - Chronic respiratory failure with hypoxia Is this a current diagnosis for this admission?: Yes Plan: Patient feels that he is at his baseline. We will continue to treat his pleural effusions and monitor respiratory status. (4) Hypertension Is this a current diagnosis for this admission?: Yes Plan: Blood pressure has been normal and will continue current medications. (5) Leg swelling Is this a current diagnosis for this admission?: Yes Plan: Improving with diuresis. Patient may developing a contraction alkalosis. Will hold IV Lasix for 24 hours and reevaluate tomorrow. (6) Lung mass Is this a current diagnosis for this admission?: Yes Plan: Left lung mass, biopsy done yesterday, results pending, oncology following. - Time Time Spent with patient: 25-34 minutes Medications reviewed and adjusted accordingly: Yes - Inpatient Certification Based on my medical assessment, after consideration of the patient's comorbidities, presenting symptoms, or acuity I expect that the services needed warrant INPATIENT care.: Yes I certify that my determination is in accordance with my understanding of Medicare's requirements for reasonable and necessary INPATIENT services [42 CFR 412.3e].: Yes Medical Necessity: Significant Comorbidiites Make Outpatient Treatment Too Risky , Risk of Complication if Not Cared For in Hospital
[2017-07-11] MEDS: LATANOPROST 0.005% OPH SOLN 2.5 ML OP SCH (22:39)
[2017-07-11] MEDS: MELATONIN 5 MG TABLET PO SCH (22:39)
[2017-07-11] MEDS: TEMAZEPAM 7.5 MG CAPSULE PO SCH (22:39)
[2017-07-12] MEDS: LEVOTHYROXINE SODIUM 0.025 MG TABLET PO SCH (06:12)
[2017-07-12] MEDS: LANSOPRAZOLE 15 MG TAB.RAP.DR PO SCH (06:12)
[2017-07-12] MEDS: IPRATROPIUM/ALBUTEROL 0.5-2.5 MG/3 ML AMPUL NEB SCH ×3 (08:47→20:15)
[2017-07-12] MEDS: AMLODIPINE BESYLATE 5 MG TABLET PO SCH (11:00)
[2017-07-12] MEDS: FINASTERIDE 5 MG TABLET PO SCH (11:01)
[2017-07-12] MEDS: ENOXAPARIN SODIUM INJ 30 MG/0.3 ML DISP.SYRIN SUBCUT SCH (11:01)
[2017-07-12] MEDS: PANTOT AC/MIN OIL/PET HY-PHL OINT 50 GM TOP SCH ×2 (11:01→18:03)
[2017-07-12] MEDS: LACTOBACILLUS ACIDOPHILUS 250 MG TAB PO SCH ×2 (11:01→22:54)
[2017-07-12] MEDS: GUAIFENESIN 600 MG TABLET.SA PO SCH ×2 (11:01→22:54)
[2017-07-12] MEDS: CLOBETASOL PROPIONATE 0.05% CREAM 15 GM TP SCH (11:07)
[2017-07-12 11:26] LABS: ANION GAP 9 (5-19); BLOOD UREA NITROGEN 37 mg/dL (7-20); CALCIUM 8.6 mg/dL (8.4-10.2); CARBON DIOXIDE 34 mmol/L (22-30); CHLORIDE 101 mmol/L (98-107); GLUCOSE 114 mg/dL (75-110); POTASSIUM 4.5 mmol/L (3.6-5.0); SODIUM 144.4 mmol/L (137-145)
--- NOTE | 2017-07-12 15:40 | PDOC PROGRESS REPORT ---
Subjective Progress Note for:: 07/12/17 Subjective:: Patient's breathing well today. Has a dry cough. No pain at the biopsy site. Has moved his bowels today. Appetite pretty good. No chest pain or difficulty breathing. No new acute pain. Reason For Visit: R91.8 OTHER NONSPECIFIC ABNORMAL FINDING OF LUNG F Physical Exam Vital Signs: Temp Pulse Resp BP Pulse Ox 97.7 F 70 18 118/40 L 93 07/12/17 11:19 07/12/17 14:00 07/12/17 13:46 07/12/17 11:19 07/12/17 13:46 Pulse Oximeter Continuous Start: 07/01/17 17: 32 Freq: RTQ4 Status: Active Document 07/12/17 13:43 DS (Rec: 07/12/17 13:56 DS [email or web address]) Pulse Oximetry Assessment Oxygen Saturation (92-100) 68 Oxygen Flow Rate (L/min) 4 Oxygen Delivery Method Nasal Cannula Equipment Usage Equipment in Use Continuous SpO2 Machine # 14 Intake & Output 07/11/17 07/12/17 07/13/17 06:59 06:59 06:59 Intake Total 1180 882 480 Output Total 1600 1500 Balance -420 -618 480 Weight 81.6 kg General appearance: PRESENT: no acute distress, cooperative, disheveled Head exam: PRESENT: atraumatic, normocephalic Eye exam: PRESENT: EOMI. ABSENT: scleral icterus Mouth exam: PRESENT: moist, tongue midline Neck exam: ABSENT: tenderness Respiratory exam: PRESENT: decreased breath sounds, rales, unlabored, other - Left lateral chest with biopsy site without complication, Pleurx catheter with dressing clean dry and intact.. ABSENT: wheezes Cardiovascular exam: PRESENT: RRR. ABSENT: systolic murmur GI/Abdominal exam: PRESENT: normal bowel sounds, soft. ABSENT: distended, guarding, tenderness Extremities exam: PRESENT: +2 edema Neurological exam: PRESENT: alert, awake, oriented to person, oriented to place , oriented to situation, CN II-XII grossly intact Psychiatric exam: PRESENT: appropriate affect. ABSENT: anxious Results Laboratory Results: 07/11/17 05:01 07/12/17 10:25 07/12/17 10:25 Sodium 144.4 Potassium 4.5 Chloride 101 Carbon Dioxide 34 H Anion Gap 9 BUN 37 H Creatinine 1.44 H Est GFR ( Amer) 56 L Est GFR (Non-Af Amer) 47 L Glucose 114 H Calcium 8.6 07/02/17 07/02/17 05:09 06:31 NT-Pro-B Natriuret Pep Cancelled 8420 H Impressions: Thoracentesis Ultrasound 07/01/17 00:00 IMPRESSION: SUCCESSFUL THORACENTESIS USING ULTRASOUND GUIDANCE. Chest X-Ray 07/10/17 00:00 IMPRESSION: No significant interval change. No evidence for pneumothorax. Other findings as noted above. Guidance Needle Placement CT 07/10/17 00:00 IMPRESSION: SUCCESSFUL CT GUIDED PERCUTANEOUS LUNG BIOPSY OF THE LEFT LOWER LOBE PLEURAL LESION. Lung Biopsy CT 07/10/17 00:00 IMPRESSION: SUCCESSFUL CT GUIDED PERCUTANEOUS LUNG BIOPSY OF THE LEFT LOWER LOBE PLEURAL LESION. Chest CT 07/10/17 08:00 IMPRESSION: SUCCESSFUL CT GUIDED PERCUTANEOUS LUNG BIOPSY OF THE LEFT LOWER LOBE PLEURAL LESION. Assessment & Plan - Diagnosis (1) Bilateral pleural effusion Is this a current diagnosis for this admission?: Yes Plan: Respiratory status improving. Lung sounds improving. Continue Pleurx catheter drainage instructions without change. Continue diuresis as his kidneys will tolerate. 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 (3) Chronic respiratory failure Qualifiers: Respiratory failure complication: hypoxia Qualified Code(s): J96.11 - Chronic respiratory failure with hypoxia Is this a current diagnosis for this admission?: Yes Plan: Multifactorial with pleural effusions playing a role. Will continue oxygen. Continue treatment for pleural effusions. (4) Hypertension Is this a current diagnosis for this admission?: Yes Plan: Stable. Continue current care no medication changes made today. (5) Leg swelling Is this a current diagnosis for this admission?: Yes Plan: Patient's bicarb has been starting to elevate. I held off on several doses of Lasix. Will restart in the morning. His renal function is improving with diuresis. (6) Lung mass Is this a current diagnosis for this admission?: Yes Plan: Patient was biopsied on Thursday. Results pending. - Time Time Spent with patient: 25-34 minutes Medications reviewed and adjusted accordingly: Yes - Inpatient Certification Based on my medical assessment, after consideration of the patient's comorbidities, presenting symptoms, or acuity I expect that the services needed warrant INPATIENT care.: Yes I certify that my determination is in accordance with my understanding of Medicare's requirements for reasonable and necessary INPATIENT services [42 CFR 412.3e].: Yes Medical Necessity: Significant Comorbidiites Make Outpatient Treatment Too Risky , Need Close Monitoring Due to Risk of Patient Decompensation, Risk of Complication if Not Cared For in Hospital
[2017-07-12] MEDS: TEMAZEPAM 7.5 MG CAPSULE PO SCH (22:54)
[2017-07-12] MEDS: MELATONIN 5 MG TABLET PO SCH (22:54)
[2017-07-12] MEDS: LATANOPROST 0.005% OPH SOLN 2.5 ML OP SCH (22:55)
[2017-07-13] MEDS: LEVOTHYROXINE SODIUM 0.025 MG TABLET PO SCH (06:09)
[2017-07-13] MEDS: LANSOPRAZOLE 15 MG TAB.RAP.DR PO SCH (06:09)
[2017-07-13] MEDS: IPRATROPIUM/ALBUTEROL 0.5-2.5 MG/3 ML AMPUL NEB SCH ×3 (07:51→20:14)
[2017-07-13] MEDS: AMLODIPINE BESYLATE 5 MG TABLET PO SCH (10:20)
[2017-07-13] MEDS: FINASTERIDE 5 MG TABLET PO SCH (10:20)
[2017-07-13] MEDS: GUAIFENESIN 600 MG TABLET.SA PO SCH ×2 (10:20→22:31)
[2017-07-13] MEDS: ENOXAPARIN SODIUM INJ 30 MG/0.3 ML DISP.SYRIN SUBCUT SCH (10:20)
[2017-07-13] MEDS: LACTOBACILLUS ACIDOPHILUS 250 MG TAB PO SCH ×2 (10:21→22:30)
[2017-07-13] MEDS: CLOBETASOL PROPIONATE 0.05% CREAM 15 GM TP SCH (10:21)
[2017-07-13] MEDS: PANTOT AC/MIN OIL/PET HY-PHL OINT 50 GM TOP SCH ×2 (10:22→18:27)
[2017-07-13] MEDS ORDERED: FUROSEMIDE INJ/PF 40 MG/4 ML SDV IV ONE (11:22)
--- NOTE | 2017-07-13 12:54 | RADIOLOGY REPORT (SQ) ---
EXAM DESCRIPTION: CHEST SINGLE VIEW COMPLETED DATE/TIME: 07/13/2017 12:44 pm REASON FOR STUDY: dyspnea COMPARISON: 07/10/2017 EXAM PARAMETERS: NUMBER OF VIEWS: One view. TECHNIQUE: Single frontal radiographic view of the chest acquired. RADIATION DOSE: NA LIMITATIONS: None. FINDINGS: LUNGS AND PLEURA: Persistent small pleural effusions. Persistent opacification in the low er lung pacheco. MEDIASTINUM AND HILAR STRUCTURES: No masses. Contour normal. HEART AND VASCULAR STRUCTURES: Heart normal in size. Normal vasculature. BONES: No acute findings. HARDWARE: Pacemaker. OTHER: No other significant finding. IMPRESSION: Persistent lower lung opacification and pleural effusions with no significant interval ney delgado. TECHNICAL DOCUMENTATION: JOB ID: [id number] [employer] All Rights Reserved Reading location - IP/workstation name: [email or web address]
--- NOTE | 2017-07-13 16:11 | PDOC PROGRESS REPORT ---
Subjective Progress Note for:: 07/13/17 Subjective:: Pt tells me he is feeling fine today. Dry cough. No new pain including no chest pain. Feels tired. We did discuss his code status in detail and he wants to remain full code,understanding that a successful code may not be able to bringk him back to his current baseline. He is willing to accept that. Anxiously awaiting biopsy results. Reason For Visit: R91.8 OTHER NONSPECIFIC ABNORMAL FINDING OF LUNG F Physical Exam Vital Signs: Temp Pulse Resp BP Pulse Ox 98.5 F 63 18 107/43 L 98 07/13/17 12:28 07/13/17 14:13 07/13/17 14:13 07/13/17 12:28 07/13/17 14:13 Pulse Oximeter Continuous Start: 07/01/17 17: 32 Freq: RTQ4 Status: Active Document 07/13/17 12:09 TPO (Rec: 07/13/17 12:09 TPO [email or web address]) Pulse Oximetry Assessment Oxygen Saturation (92-100) 94 Oxygen Flow Rate (L/min) 4 Oxygen Delivery Method Nasal Cannula Fraction of Inspired Oxygen (FIO2) 36 Equipment Usage Equipment in Use Continuous SpO2 Machine # 14 Intake & Output 07/12/17 07/13/17 07/14/17 06:59 06:59 06:59 Intake Total 882 720 Output Total 1500 400 Balance -618 320 Weight 82.2 kg General appearance: PRESENT: no acute distress, cooperative Head exam: PRESENT: atraumatic, normocephalic Eye exam: PRESENT: EOMI Mouth exam: PRESENT: tongue midline Respiratory exam: PRESENT: decreased breath sounds, rales. ABSENT: unlabored, wheezes Cardiovascular exam: PRESENT: RRR, systolic murmur GI/Abdominal exam: PRESENT: normal bowel sounds, soft. ABSENT: distended, firm , tenderness Extremities exam: PRESENT: +2 edema Neurological exam: PRESENT: alert, awake, oriented to person, oriented to place , oriented to situation, CN II-XII grossly intact Psychiatric exam: PRESENT: appropriate affect. ABSENT: anxious Skin exam: PRESENT: warm Results Laboratory Results: 07/11/17 05:01 07/12/17 10:25 07/02/17 07/02/17 05:09 06:31 NT-Pro-B Natriuret Pep Cancelled 8420 H Impressions: Thoracentesis Ultrasound 07/01/17 00:00 IMPRESSION: SUCCESSFUL THORACENTESIS USING ULTRASOUND GUIDANCE. Guidance Needle Placement CT 07/10/17 00:00 IMPRESSION: SUCCESSFUL CT GUIDED PERCUTANEOUS LUNG BIOPSY OF THE LEFT LOWER LOBE PLEURAL LESION. Lung Biopsy CT 07/10/17 00:00 IMPRESSION: SUCCESSFUL CT GUIDED PERCUTANEOUS LUNG BIOPSY OF THE LEFT LOWER LOBE PLEURAL LESION. Chest CT 07/10/17 08:00 IMPRESSION: SUCCESSFUL CT GUIDED PERCUTANEOUS LUNG BIOPSY OF THE LEFT LOWER LOBE PLEURAL LESION. Chest X-Ray 07/13/17 00:00 IMPRESSION: Persistent lower lung opacification and pleural effusions with no significant interval change. Assessment & Plan - Diagnosis (1) Bilateral pleural effusion Is this a current diagnosis for this admission?: Yes Plan: This patient tells me that he is feeling fine today. I do note that his breathing is a little labored. His nurse agrees. I repeated a chest x-ray which shows very small bilateral pleural effusions. Some consolidation in the bases. In other words his chest x-ray has not worsened. I did give him a dose of Lasix and his breathing changed, for the better. His oxygen saturation improved. His Lasix was on hold secondary elevated bicarb. Will monitor BUN and creatinine and continue to diuresis. 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 Awaiting biopsy results from the left lung biopsy. (3) Chronic respiratory failure Qualifiers: Respiratory failure complication: hypoxia Qualified Code(s): J96.11 - Chronic respiratory failure with hypoxia Is this a current diagnosis for this admission?: Yes Plan: Continue current care, unlikely to get him back to his baseline respiratory status given his current pulmonary problems. (4) Hypertension Is this a current diagnosis for this admission?: Yes Plan: His blood pressure has been trending low. I have decreased his amlodipine from 5 mg to 2.5 mg daily. (5) Leg swelling Is this a current diagnosis for this admission?: Yes Plan: Multi-factorial. Patient is receiving Lasix. He has received Lasix 40 mg IV 1 today. Our was increasing so I held it yesterday. He had some dyspnea with holding the Lasix and now feels better once of administered Lasix. Lower extremity edema has improved slightly with Lasix administration. We will continue to diuresis and monitor for safety. (6) Lung mass Is this a current diagnosis for this admission?: Yes Plan: Oncology following, lung mass biopsy pending. - Time Time Spent with patient: 25-34 minutes Medications reviewed and adjusted accordingly: Yes - Inpatient Certification Based on my medical assessment, after consideration of the patient's comorbidities, presenting symptoms, or acuity I expect that the services needed warrant INPATIENT care.: Yes I certify that my determination is in accordance with my understanding of Medicare's requirements for reasonable and necessary INPATIENT services [42 CFR 412.3e].: Yes Medical Necessity: Significant Comorbidiites Make Outpatient Treatment Too Risky , Need Close Monitoring Due to Risk of Patient Decompensation, Risk of Complication if Not Cared For in Hospital
[2017-07-13] MEDS: LATANOPROST 0.005% OPH SOLN 2.5 ML OP SCH (22:31)
[2017-07-13] MEDS: MELATONIN 5 MG TABLET PO SCH (22:31)
[2017-07-13] MEDS: TEMAZEPAM 7.5 MG CAPSULE PO SCH (22:31)
[2017-07-14 05:36] LABS: ANION GAP 11 (5-19); BLOOD UREA NITROGEN 47 mg/dL (7-20); CALCIUM 8.1 mg/dL (8.4-10.2); CARBON DIOXIDE 31 mmol/L (22-30); CHLORIDE 101 mmol/L (98-107); GLUCOSE 113 mg/dL (75-110); POTASSIUM 4.7 mmol/L (3.6-5.0); SODIUM 143.3 mmol/L (137-145)
[2017-07-14] MEDS: LANSOPRAZOLE 15 MG TAB.RAP.DR PO SCH (05:40)
[2017-07-14] MEDS: LEVOTHYROXINE SODIUM 0.025 MG TABLET PO SCH (05:40)
[2017-07-14] MEDS: IPRATROPIUM/ALBUTEROL 0.5-2.5 MG/3 ML AMPUL NEB SCH ×3 (08:15→20:46)
[2017-07-14] MEDS ORDERED: AMLODIPINE BESYLATE 2.5 MG TABLET PO SCH (10:00)
[2017-07-14] MEDS: LACTOBACILLUS ACIDOPHILUS 250 MG TAB PO SCH ×2 (10:46→22:48)
[2017-07-14] MEDS: FINASTERIDE 5 MG TABLET PO SCH (10:46)
[2017-07-14] MEDS: GUAIFENESIN 600 MG TABLET.SA PO SCH ×2 (10:46→22:49)
[2017-07-14] MEDS: PANTOT AC/MIN OIL/PET HY-PHL OINT 50 GM TOP SCH ×2 (10:47→17:19)
[2017-07-14] MEDS: ENOXAPARIN SODIUM INJ 30 MG/0.3 ML DISP.SYRIN SUBCUT SCH (10:47)
[2017-07-14] MEDS: CLOBETASOL PROPIONATE 0.05% CREAM 15 GM TP SCH (10:48)
--- NOTE | 2017-07-14 17:32 | PDOC PROGRESS REPORT ---
Subjective Progress Note for:: 07/14/17 Subjective:: Shortness of breath slowly improving, tired, no chest pain or palpitation at this time. Still has cough. Reason For Visit: R91.8 OTHER NONSPECIFIC ABNORMAL FINDING OF LUNG F Physical Exam Vital Signs: Temp Pulse Resp BP Pulse Ox 98.1 F 75 28 H 105/53 L 87 L 07/14/17 15:43 07/14/17 15:43 07/14/17 15:43 07/14/17 15:43 07/14/17 15:43 Pulse Oximeter Continuous Start: 07/01/17 17: 32 Freq: RTQ4 Status: Active Document 07/14/17 12:26 HCR (Rec: 07/14/17 12:26 HCR [email or web address] Pulse Oximetry Assessment Oxygen Saturation (92-100) 90 Oxygen Flow Rate (L/min) 6 Oxygen Delivery Method Nasal Cannula Equipment Usage Equipment in Use Continuous SpO2 Machine # 14 Intake & Output 07/13/17 07/14/17 07/15/17 06:59 06:59 06:59 Intake Total 720 592 Output Total 400 1150 Balance 320 -558 Weight 82.2 kg 82.5 kg General appearance: PRESENT: no acute distress, cooperative Head exam: PRESENT: atraumatic, normocephalic Eye exam: PRESENT: EOMI Mouth exam: PRESENT: tongue midline Respiratory exam: PRESENT: decreased breath sounds, rales. ABSENT: unlabored, wheezes Cardiovascular exam: PRESENT: RRR, systolic murmur GI/Abdominal exam: PRESENT: normal bowel sounds, soft. ABSENT: distended, firm , tenderness Extremities exam: PRESENT: +2 edema Neurological exam: PRESENT: alert, awake, oriented to person, oriented to place , oriented to situation, CN II-XII grossly intact Psychiatric exam: PRESENT: appropriate affect. ABSENT: anxious Skin exam: PRESENT: warm Results Laboratory Results: 07/11/17 05:01 07/14/17 04:19 07/14/17 04:19 Sodium 143.3 Potassium 4.7 Chloride 101 Carbon Dioxide 31 H Anion Gap 11 BUN 47 H Creatinine 1.93 H Est GFR ( Amer) 40 L Est GFR (Non-Af Amer) 33 L Glucose 113 H Calcium 8.1 L Magnesium 2.5 H 07/02/17 07/02/17 05:09 06:31 NT-Pro-B Natriuret Pep Cancelled 8420 H Impressions: Thoracentesis Ultrasound 07/01/17 00:00 IMPRESSION: SUCCESSFUL THORACENTESIS USING ULTRASOUND GUIDANCE. Guidance Needle Placement CT 07/10/17 00:00 IMPRESSION: SUCCESSFUL CT GUIDED PERCUTANEOUS LUNG BIOPSY OF THE LEFT LOWER LOBE PLEURAL LESION. Lung Biopsy CT 07/10/17 00:00 IMPRESSION: SUCCESSFUL CT GUIDED PERCUTANEOUS LUNG BIOPSY OF THE LEFT LOWER LOBE PLEURAL LESION. Chest CT 07/10/17 08:00 IMPRESSION: SUCCESSFUL CT GUIDED PERCUTANEOUS LUNG BIOPSY OF THE LEFT LOWER LOBE PLEURAL LESION. Chest X-Ray 07/13/17 00:00 IMPRESSION: Persistent lower lung opacification and pleural effusions with no significant interval change. Assessment & Plan - Plan Summary Plan Summary: (1) Bilateral pleural effusion Is this a current diagnosis for this admission?: Yes Plan: Secondary to metastatic renal cancer. Will continue diuresis and pending Pleurx as needed. 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 I explained this to the patient and he wants treatment even though his condition is tenuous. I have called the oncologist Dr Sullivan and she will follow-up with patient. I discussed CODE STATUS, and patient wants to think about it at this time. (3) Chronic respiratory failure Qualifiers: Respiratory failure complication: hypoxia Qualified Code(s): J96.11 - Chronic respiratory failure with hypoxia Is this a current diagnosis for this admission?: Yes Plan: Continue current care, unlikely to get him back to his baseline respiratory status given his current pulmonary problems. (4) Hypertension Is this a current diagnosis for this admission?: Yes Plan: His blood pressure meds trending low. Will consider discontinuing the amlodipine 2.5 mg daily. (5) Leg swelling Is this a current diagnosis for this admission?: Yes Plan: Multi-factorial. Patient is receiving Lasix. He had some dyspnea with holding the Lasix. We will continue to diuresis and monitor for safety. Patient has Cardiac issues which may be contributory. Will obtain cardiology consultation. (6) Lung mass Is this a current diagnosis for this admission?: Yes Plan: This is metastatic renal cell cancer, clear cell type, by pathology report.
--- NOTE | 2017-07-14 19:54 | PROGRESS NOTE E ---
Progress Note NAME: AISSATOU IVERSON : 1930 AGE: 86Y DATE: 07/14/2017 ROOM: 406 SUBJECTIVE: The patient is an 86-year-old man who had a lung biopsy done 07/10/2017, the pathology is said to be consistent with metastatic renal cell carcinoma, clear cell type. He has a prior history of renal cell cancer. He is status post left nephrectomy. He had developed multiple pulmonary nodules which slow growing. He subsequently developed pleural effusion and was recently admitted with respiratory insufficiency following an attempt at a biopsy, he subsequently had a chest tube placed and he presently has a PleurX catheter. A lung biopsy that was done to establish the diagnosis shows metastatic renal cell cancer. 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 I explained that this was not curable and his options would include hospice with treatment to make him comfortable. However, no direct treatment for the cancer. I explained that palliative immunotherapy maybe helpful in patients with metastatic renal cell cancer especially with intermediate or poor-risk disease. The combination of chemotherapy recommend of immunotherapy would be nivolumab plus ipilimumab rather than *------* angiogenic therapy which would have been pills. I reviewed with him the possible side effects of this regimen to include the possibility an infusion reaction while it is being given, rash, diarrhea, the development of second malignancy, hypothyroidism or hyperthyroidism. I explained to him that with this regimen the risk of was decreased with the combination of nivolumab and ipilimumab compared to nivolumab alone. The 3 year progression of disease survival rate was about 39%. I explained that if he tolerates the regimen it might be helpful in improving his clinical symptoms and hopefully quality of life. I discussed with him the option of DNR. He is willing to be a DNR status, he does not want to be intubated or placed on respiratory support and he does not want CPR. I will arrange for him to receive his first dose of chemotherapy while he is in the hospital, hopefully by 07/16. Subsequent treatments can be given as an outpatient. I will also recommend cardiology evaluation. He was previously seen by [facility] and I have enclosed a copy in his medical record. I thank you for this consultation and allowing me to be a part of his care. DICTATING PHYSICIAN: AMELIA LOCO M.D. [id number] PHY#: [id number] ID: [id number] JOB#: [id number] ACCT: [id number] cc: >
[2017-07-14] MEDS: MELATONIN 5 MG TABLET PO SCH (22:49)
[2017-07-14] MEDS: TEMAZEPAM 7.5 MG CAPSULE PO SCH (22:49)
[2017-07-14] MEDS: LATANOPROST 0.005% OPH SOLN 2.5 ML OP SCH (22:50)
[2017-07-15 05:04] LABS: ABSOLUTE BASOPHILS # (AUTO) 0.1 10^3/uL (0.0-0.2); ABSOLUTE EOSINOPHILS # (AUTO) 0.2 10^3/uL (0.0-0.6); ABSOLUTE LYMPHOCYTES (AUTO) 0.6 10^3/uL (0.5-4.7); ABSOLUTE MONOCYTES (AUTO) 0.5 10^3/uL (0.1-1.4); ABSOLUTE NEUT (AUTO) 6.8 10^3/uL (1.7-8.2); BASOPHILS % (AUTO) 0.9 % (0-2); HEMATOCRIT 26.6 % (37.9-51.0); HEMOGLOBIN 8.5 g/dL (13.5-17.0); LYMPHOCYTES % (AUTO) 7.7 % (13-45); MEAN CORPUSCULAR HEMOGLOBIN 27.5 pg (27.0-33.4); MEAN CORPUSCULAR HGB CONC 31.9 g/dL (32.0-36.0); MEAN CORPUSCULAR VOLUME 86 fl (80-97); PLATELET COUNT 288 10^3/uL (150-450); RED BLOOD COUNT 3.09 10^6/uL (4.35-5.55); SEGMENTED NEUTROPHILS % (AUTO) 82.4 % (42-78); TOTAL CELLS COUNTED % (AUTO) 100 %; WHITE BLOOD COUNT 8.2 10^3/uL (4.0-10.5)
[2017-07-15 05:27] LABS: ANION GAP 12 (5-19); BLOOD UREA NITROGEN 48 mg/dL (7-20); CALCIUM 8.1 mg/dL (8.4-10.2); CARBON DIOXIDE 31 mmol/L (22-30); CHLORIDE 102 mmol/L (98-107); GLUCOSE 109 mg/dL (75-110); SODIUM 145.2 mmol/L (137-145)
[2017-07-15 05:31] LABS: POTASSIUM 4.8 mmol/L (3.6-5.0)
[2017-07-15] MEDS: LANSOPRAZOLE 15 MG TAB.RAP.DR PO SCH (05:48)
[2017-07-15] MEDS: LEVOTHYROXINE SODIUM 0.025 MG TABLET PO SCH (05:49)
[2017-07-15] MEDS: IPRATROPIUM/ALBUTEROL 0.5-2.5 MG/3 ML AMPUL NEB SCH ×3 (08:13→19:39)
--- NOTE | 2017-07-15 09:15 | EKG REPORT ---
SEVERITY:- ABNORMAL ECG - VENTRICULAR-PACED COMPLEXES UNDERLYING A FIB BORDERLINE PROLONGED QT INTERVAL : Confirmed by: Jessica Doran 15-Jul-2017 09:13:21
[2017-07-15] MEDS: FINASTERIDE 5 MG TABLET PO SCH (10:04)
[2017-07-15] MEDS: GUAIFENESIN 600 MG TABLET.SA PO SCH ×2 (10:04→22:51)
[2017-07-15] MEDS: LACTOBACILLUS ACIDOPHILUS 250 MG TAB PO SCH ×2 (10:04→22:50)
[2017-07-15] MEDS: TORSEMIDE 20 MG TABLET PO SCH (10:05)
[2017-07-15] MEDS: PANTOT AC/MIN OIL/PET HY-PHL OINT 50 GM TOP SCH ×2 (10:05→19:21)
[2017-07-15] MEDS: ENOXAPARIN SODIUM INJ 30 MG/0.3 ML DISP.SYRIN SUBCUT SCH (10:05)
[2017-07-15] MEDS: CLOBETASOL PROPIONATE 0.05% CREAM 15 GM TP SCH (10:05)
--- NOTE | 2017-07-15 14:20 | PDOC PROGRESS REPORT ---
Subjective Progress Note for:: 07/15/17 Subjective:: Still with shortness of breath but a little better. He is tired, denies chest pain or palpitation at this time. Still has cough, non productive. Reason For Visit: R91.8 OTHER NONSPECIFIC ABNORMAL FINDING OF LUNG F Physical Exam Vital Signs: Temp Pulse Resp BP Pulse Ox 98.2 F 70 24 H 97/47 L 93 07/15/17 11:39 07/15/17 11:39 07/15/17 11:39 07/15/17 11:39 07/15/17 11:57 Pulse Oximeter Continuous Start: 07/01/17 17: 32 Freq: RTQ4 Status: Active Document 07/15/17 11:57 TPO (Rec: 07/15/17 11:57 TPO [email or web address]) Pulse Oximetry Assessment Oxygen Saturation (92-100) 93 Oxygen Flow Rate (L/min) 5 Oxygen Delivery Method Nasal Cannula Fraction of Inspired Oxygen (FIO2) 40 Equipment Usage Equipment in Use Continuous SpO2 Machine # 14 Intake & Output 07/14/17 07/15/17 07/16/17 06:59 06:59 06:59 Intake Total 592 1541 Output Total 1150 300 Balance -558 1241 Weight 82.5 kg 82.5 kg GEN: NAD, well-developed, well-nourished CV: RRR, NL S1S2 LUNGS: Crackles bases bilaterally, worse right. Decreased breath sounds worse on the left. ABDOMEN Soft, NT, +BS EXTERMITIES: 2+ lower extremity edema NEURO: Alert, oriented 3, generalized weakness Results Laboratory Results: 07/15/17 04:18 07/15/17 04:18 07/15/17 07/15/17 04:18 04:18 WBC 8.2 RBC 3.09 L Hgb 8.5 L Hct 26.6 L MCV 86 MCH 27.5 MCHC 31.9 L RDW 17.0 H Plt Count 288 Seg Neutrophils % 82.4 H Lymphocytes % 7.7 L Monocytes % 6.0 Eosinophils % 3.0 Basophils % 0.9 Absolute Neutrophils 6.8 Absolute Lymphocytes 0.6 Absolute Monocytes 0.5 Absolute Eosinophils 0.2 Absolute Basophils 0.1 Sodium 145.2 H Potassium 4.8 Chloride 102 Carbon Dioxide 31 H Anion Gap 12 BUN 48 H Creatinine 1.92 H Est GFR ( Amer) 40 L Est GFR (Non-Af Amer) 33 L Glucose 109 Calcium 8.1 L 07/02/17 07/02/17 05:09 06:31 NT-Pro-B Natriuret Pep Cancelled 8420 H Impressions: Thoracentesis Ultrasound 07/01/17 00:00 IMPRESSION: SUCCESSFUL THORACENTESIS USING ULTRASOUND GUIDANCE. Guidance Needle Placement CT 07/10/17 00:00 IMPRESSION: SUCCESSFUL CT GUIDED PERCUTANEOUS LUNG BIOPSY OF THE LEFT LOWER LOBE PLEURAL LESION. Lung Biopsy CT 07/10/17 00:00 IMPRESSION: SUCCESSFUL CT GUIDED PERCUTANEOUS LUNG BIOPSY OF THE LEFT LOWER LOBE PLEURAL LESION. Chest CT 07/10/17 08:00 IMPRESSION: SUCCESSFUL CT GUIDED PERCUTANEOUS LUNG BIOPSY OF THE LEFT LOWER LOBE PLEURAL LESION. Chest X-Ray 07/13/17 00:00 IMPRESSION: Persistent lower lung opacification and pleural effusions with no significant interval change. Assessment & Plan - Plan Summary Plan Summary: (1) Bilateral pleural effusion Is this a current diagnosis for this admission?: Yes Plan: Secondary to metastatic renal cancer. Will continue diuresis and pending Pleurx as needed. 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 I explained this to the patient and he wants treatment even though his condition is tenuous. I spoke with his oncologist Dr Sullivan and she she stated that she has discussed with patient who wants treatment. That is being arranged for him to get the dose of biological agent likely tomorrow, with plan to discharge to residential with rehab and possibly receive physical dose in 3 weeks. She stated that she discussed CODE STATUS with the patient and he wishes now to be DNR. I again discussed CODE STATUS with him as well, and patient now wishes to be DNR. This is being fed in the medical record. (3) Chronic respiratory failure Qualifiers: Respiratory failure complication: hypoxia Qualified Code(s): J96.11 - Chronic respiratory failure with hypoxia Is this a current diagnosis for this admission?: Yes Plan: Continue current care, unlikely to get him back to his baseline respiratory status given his current pulmonary problems. (4) Hypertension Is this a current diagnosis for this admission?: Yes Plan: His blood pressure trending low. Will consider discontinuing the amlodipine 2.5 mg daily. (5) Leg swelling Is this a current diagnosis for this admission?: Yes Plan: Multi-factorial. Patient is receiving Lasix. He had some dyspnea with holding the Lasix. We will continue to diurese and monitor. Patient has Cardiac issues which may be contributory.Cardiology consultation was placed with Dr. Doran who is in the process of evaluating the patient. (6) Lung mass Is this a current diagnosis for this admission?: Yes Plan: This is metastatic renal cell cancer, clear cell type, by pathology report.
--- NOTE | 2017-07-15 20:42 | PDOC CONSULTATION ---
Consultation Consult Date: 07/14/17 Attending physician:: NARCISO ELLIS Consult reason:: CHF History of Present Illness Admission Date/PCP: 07/01/17 08:52 MIRIAM GARCÍA MD Patient complains of: Shortness of breath and pedal edema History of Present Illness: AISSATOU IVERSON is a 86 year old male, who has been in the hospital for several days and is now in need to get more chemotherapy. Patient currently in very precarious cardi0-pulmonary status. Patient is suspected to have CHF. He also has bilateral pneumonia and pleural effusion. I was therefore asked to evaluate him and help with cardiovascular management. Patient denying any chest pain he does have significant shortness of breath. Patient denied any recent syncope, near syncope. He does have chronic atrial fibrillation and has a pacemaker. Patient has been followed by cullet crusher and washer from [facility]. A previous 2D echocardiogram report available was reviewed. Past Medical History Cardiac Medical History: Reports: Atrial Fibrillation, Hypertension Denies: Coronary Artery Disease, Myocardial Infarction Pulmonary Medical History: Reports: Pneumonia Denies: Asthma, Bronchitis, Chronic Obstructive Pulmonary Disease (COPD) Neurological Medical History: Denies: Seizures Endocrine Medical History: Reports: Hypothyroidism Malignancy Medical History: Reports: Renal (Kidney) Cancer Musculoskeltal Medical History: Reports: Arthritis - "a little bit" Hematology: Reports: Anemia - Currently on Iron Past Surgical History Past Surgical History: Reports: Pacemaker, Other - Skin lesion from back removed Social History Information Source: Patient Smoking Status: Former Smoker Frequency of Alcohol Use: None Hx Recreational Drug Use: No Drugs: None Hx Prescription Drug Abuse: No - Advance Directive Resuscitation Status: Full Code Family History Family History: Hypertension Parental Family History Reviewed: Yes Children Family History Reviewed: Yes Sibling(s) Family History Reviewed.: Yes Medication/Allergy Home Medications: Amlodipine Besylate [Norvasc 10 mg Tablet] 10 mg PO DAILY 07/01/17 Clobetasol Propionate [Temovate 0.05% Cream 15 Gm] 1 applic TP DAILY 07/01/17 Finasteride 5 mg PO DAILY 07/01/17 Iron Ps Complex/B12/Folic Acid [Ferrex 150 Forte Capsule] 1 cap PO DAILY Latanoprost [Xalatan 0.005% Oph Soln 2.5 ml] 1 drop OU QHS 07/01/17 Levothyroxine Sodium [Tirosint] 25 mcg PO DAILY 07/01/17 Metoprolol Succinate [Toprol Xl 25 mg Tab.sr] 25 mg PO DAILY 07/01/17 Rivaroxaban [Xarelto 15 mg Tablet] 15 mg PO DAILY 07/01/17 Sorafenib Tosylate [Nexavar] 400 mg PO Q12 07/01/17 Vit A/Vit C/Vit E/Zinc/Copper [Preservision Areds Tablet] 1 each PO DAILY Allergies/Adverse Reactions: No Known Allergies Allergy (Verified 07/01/17 09:20) Review of Systems Review of Systems: Please see history of present illness and past medical history as wall. Constitutional: No fever or chills reported. Patient has noted marked fatigue and tiredness. Head : No recent chronic headaches, recent head injury. Eyes: No recent eye pain, diplopia, redness, discharge, acute visual changes. Ears: No recent chronic ear pain, acute hearing loss, ear discharge. Oral cavity: No recent ulcerations, bleeding, oral cavity discomfort. Neck: No recent acute neck pain reported. Hematologic: No recent easy bruising or bleeding. Lymphatic: No recent lymph node enlargement reported. Cardiovascular system review: See history of present illness. History of atrial fibrillation and pacemaker placement. Respiratory system review: No hemoptysis or blood clots in the lungs reported. Significant leg edema and significant shortness of breath on exertion Gastrointestinal system review: Negative for any recent acute hematemesis, melena. Genitourinary system review: History of metastatic renal cell carcinoma.. Skin system review: Negative for any recent abnormal bruising, no rash, no pruritus reported. Neurologic: No prior history of strokes, mini strokes, seizure disorder. Psychologic: No history of major psychosis or major depression reported. Musculoskeletal: Minor aches and pains reported. No acute joint swelling reported. Endocrine: No recent polyuria, polydipsia, recent heat or cold intolerance. Physical Exam Vital Signs: Temp Pulse Resp BP Pulse Ox 98.1 F 75 28 H 105/53 L 90 L 07/14/17 15:43 07/14/17 15:43 07/14/17 15:43 07/14/17 15:43 07/14/17 16:00 Pulse Oximeter Continuous Start: 07/01/17 17: 32 Freq: RTQ4 Status: Active Document 07/14/17 16:00 [facility] (Rec: 07/14/17 17:48 [facility] [email or web address]) Pulse Oximetry Assessment Oxygen Saturation (92-100) 90 Oxygen Flow Rate (L/min) 6 Oxygen Delivery Method Nasal Cannula Fraction of Inspired Oxygen (FIO2) 44 Equipment Usage Equipment in Use Continuous SpO2 Machine # [id number] Intake & Output 07/13/17 07/14/17 07/15/17 06:59 06:59 06:59 Intake Total 995 795 7421 Output Total 400 1150 Balance 320 -558 1301 Weight 82.2 kg 82.5 kg Exam: GENERAL: well-nourished and in no acute distress. Alert and oriented x3 HEAD: Atraumatic, normocephalic. EYES: Pupils equal round and reactive to light, extraocular movements intact, sclera anicteric, conjunctiva are normal. ENT: TMs normal, nares patent, oropharynx clear without exudates. Moist mucous membranes. No oral ulcerations or bleeding gums noted NECK: supple without lymphadenopathy. Trachea is central. No cervical or axillary lymphadenopathy noted. Carotids are 2+, JVD 10-12 cm LUNGS: Respiration seems nonlabored, no significant accessory muscle action noted. Bibasilar fine crackles right more than left. Dullness noted right base more than left base. Possible bronchial breathing right base. CHEST: Palpation of the chest wall shows no significant chest wall tenderness. Pacemaker noted left-sided chest HEART: Concrete CRISIS MANAGER, No PSH, 1/6 LICHA aortic area, 1/6 mittal systolic murmur mitral area, no rubs, no gallops. ABDOMEN: Soft, no significant tenderness appreciated, normoactive bowel sounds. No guarding, no rebound. No rigidity noted . No masses appreciated. EXTREMITIES: Pedal pulses are 1-2+, no calf tenderness noted. No clubbing or cyanosis. 2-3+ pedal edema noted NEUROLOGICAL: Focused neurological exam showed no significant neurologic deficit. Normal speech, no focal weakness appreciated. PSYCH: Normal mood, normal affect. Judgment and insight within normal limits. SKIN: No significant ecchymosis, skin is noted to be warm. MUSCULOSKELETAL EXAM: No significant acute joint swelling noted. Results Laboratory Results: 07/11/17 05:01 07/14/17 04:19 07/14/17 04:19 Sodium 143.3 Potassium 4.7 Chloride 101 Carbon Dioxide 31 H Anion Gap 11 BUN 47 H Creatinine 1.93 H Est GFR ( Amer) 40 L Est GFR (Non-Af Amer) 33 L Glucose 113 H Calcium 8.1 L Magnesium 2.5 H 07/02/17 07/02/17 05:09 06:31 NT-Pro-B Natriuret Pep Cancelled 8420 H EKG Comments: Shows atrial fibrillation with intermittent ventricular paced beats. No acute ST segment elevations are noted. Impressions: Thoracentesis Ultrasound 07/01/17 00:00 IMPRESSION: SUCCESSFUL THORACENTESIS USING ULTRASOUND GUIDANCE. Guidance Needle Placement CT 07/10/17 00:00 IMPRESSION: SUCCESSFUL CT GUIDED PERCUTANEOUS LUNG BIOPSY OF THE LEFT LOWER LOBE PLEURAL LESION. Lung Biopsy CT 07/10/17 00:00 IMPRESSION: SUCCESSFUL CT GUIDED PERCUTANEOUS LUNG BIOPSY OF THE LEFT LOWER LOBE PLEURAL LESION. Chest CT 07/10/17 08:00 IMPRESSION: SUCCESSFUL CT GUIDED PERCUTANEOUS LUNG BIOPSY OF THE LEFT LOWER LOBE PLEURAL LESION. Chest X-Ray 07/13/17 00:00 IMPRESSION: Persistent lower lung opacification and pleural effusions with no significant interval change. Assessment & Plan - Diagnosis (1) Atrial fibrillation Qualifiers: Atrial fibrillation type: unspecified Qualified Code(s): I48.91 - Unspecified atrial fibrillation Is this a current diagnosis for this admission?: Yes (2) Bilateral pleural effusion Is this a current diagnosis for this admission?: Yes (3) Chronic respiratory failure Qualifiers: Respiratory failure complication: hypoxia Qualified Code(s): J96.11 - Chronic respiratory failure with hypoxia Is this a current diagnosis for this admission?: Yes (4) Congestive heart failure (CHF) Qualifiers: Heart failure type: diastolic Heart failure chronicity: chronic Qualified Code(s): I50.32 - Chronic diastolic (congestive) heart failure Is this a current diagnosis for this admission?: Yes (5) Hypertension Qualifiers: Hypertension type: essential hypertension Qualified Code(s): I10 - Essential (primary) hypertension Is this a current diagnosis for this admission?: Yes (6) Leg swelling Is this a current diagnosis for this admission?: Yes (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 Qualifiers: Laterality: unspecified laterality Qualified Code(s): C78.00 - Secondary malignant neoplasm of unspecified lung; C64.9 - Malignant neoplasm of unspecified kidney, except renal pelvis; C64.9 - Malignant neoplasm of unspecified kidney, except renal pelvis; C64.9 - Malignant neoplasm of unspecified kidney, except renal pelvis; C64.9 - Malignant neoplasm of unspecified kidney, except renal pelvis Is this a current diagnosis for this admission?: Yes (8) Pulmonary hypertension Is this a current diagnosis for this admission?: Yes - Notes Notes: Dyspnea most likely related to pulmonary condition based on chest x-ray review. However has some element of CHF. Patient has history significant for malignancy. Based on previous echocardiogram, patient seems to have predominantly heart failure from diastolic dysfunction. However due to chronic lung problems he may have element of right heart failure. At this point have started patient on torsemide 10 mg p.o. daily. Because of significant comorbid diagnosis, prognosis is guarded. Chest x-ray shows significant right lower lobe pneumonia/consolidation. Also has some pathology of the left lower lobe. Recommend that pulmonary physician be involved. Patient currently DNR. Will continue to follow. Congestive heart failure: Started on torsemide. Follow electrolytes follow daily weight, urine output, continue to restrict fluid and salt intake. Atrial fibrillation: Currently seems rate well controlled. Patient has backup pacemaker. Currently not on chronic anticoagulation. This decision is being left to the oncologist while patient currently getting chemotherapy. Bilateral pleural effusion: Possibly related to CHF but could well be other cause. Hypertension: Blood pressure under satisfactory control. Pedal edema: Continue diuretic therapy. Recommend support stockings. Continue with DVT prophylaxis. Metastatic malignancy: Patient being treated by oncologist. Pulmonary hypertension: Continue oxygen supplementation. - Time Time Spent: 30 to 50 Minutes - More than 50% of the time spent coordinating care , discussing management plans with involved caregivers. Management plans discussed with involved personnels. Medical decision making was of moderate to high complexity, patient's has multiple comorbidities. Medications reviewed and adjusted accordingly: Yes
--- NOTE | 2017-07-15 20:51 | PDOC PROGRESS REPORT ---
Subjective Progress Note for:: 07/15/17 Subjective:: Patient remains significantly dyspneic but not any worse than last night. Remains with increased ventilatory rate. Remains on oxygen. Reason For Visit: R91.8 OTHER NONSPECIFIC ABNORMAL FINDING OF LUNG F Physical Exam Vital Signs: Temp Pulse Resp BP Pulse Ox 98 F 58 L 22 H 109/42 L 92 07/15/17 16:00 07/15/17 16:00 07/15/17 16:00 07/15/17 16:00 07/15/17 16:00 Pulse Oximeter Continuous Start: 07/01/17 17: 32 Freq: RTQ4 Status: Active Document 07/15/17 16:00 HCR (Rec: 07/15/17 17:48 HCR [email or web address]) Pulse Oximetry Assessment Oxygen Saturation (92-100) 92 Oxygen Flow Rate (L/min) 5 Oxygen Delivery Method Nasal Cannula Equipment Usage Equipment in Use Continuous SpO2 Machine # 14 Intake & Output 07/14/17 07/15/17 07/16/17 06:59 06:59 06:59 Intake Total 592 1541 561 Output Total 1150 300 Balance -558 1241 561 Weight 82.5 kg 82.5 kg Exam: GENERAL: well-nourished and in mild respiratory distress. Alert and oriented x3 HEAD: Atraumatic, normocephalic. EYES: Pupils equal round and reactive to light, extraocular movements intact, sclera anicteric, conjunctiva are normal. ENT: TMs normal, nares patent, oropharynx clear without exudates. Moist mucous membranes. No oral ulcerations or bleeding gums noted NECK: supple without lymphadenopathy. Trachea is central. No cervical or axillary lymphadenopathy noted. Carotids are 2+, JVD 8-10 cm LUNGS: Respiration seems nonlabored, no significant accessory muscle action noted. Bibasilar coarse crackles noted right more than left with right basal dullness. No wheezes rales or rhonchi noted. No significant dullness noted on percussion. CHEST: Palpation of the chest wall shows no significant chest wall tenderness. 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 ABDOMEN: Soft, no significant tenderness appreciated, normoactive bowel sounds. No guarding, no rebound. No rigidity noted . No masses appreciated. EXTREMITIES: Pedal pulses are 1-2+, no calf tenderness noted. No clubbing or cyanosis. 2+ pedal edema noted NEUROLOGICAL: Focused neurological exam showed no significant neurologic deficit. Normal speech, no focal weakness appreciated. PSYCH: Normal mood, normal affect. Judgment and insight within normal limits. SKIN: No significant ecchymosis, skin is noted to be warm. MUSCULOSKELETAL EXAM: No significant acute joint swelling noted. Results Laboratory Results: 07/15/17 04:18 07/15/17 04:18 07/15/17 07/15/17 04:18 04:18 WBC 8.2 RBC 3.09 L Hgb 8.5 L Hct 26.6 L MCV 86 MCH 27.5 MCHC 31.9 L RDW 17.0 H Plt Count 288 Seg Neutrophils % 82.4 H Lymphocytes % 7.7 L Monocytes % 6.0 Eosinophils % 3.0 Basophils % 0.9 Absolute Neutrophils 6.8 Absolute Lymphocytes 0.6 Absolute Monocytes 0.5 Absolute Eosinophils 0.2 Absolute Basophils 0.1 Sodium 145.2 H Potassium 4.8 Chloride 102 Carbon Dioxide 31 H Anion Gap 12 BUN 48 H Creatinine 1.92 H Est GFR ( Amer) 40 L Est GFR (Non-Af Amer) 33 L Glucose 109 Calcium 8.1 L 07/02/17 07/02/17 05:09 06:31 NT-Pro-B Natriuret Pep Cancelled 8420 H EKG Comments: Telemetry shows underlying atrial fibrillation with intermittent ventricular paced beats Impressions: Thoracentesis Ultrasound 07/01/17 00:00 IMPRESSION: SUCCESSFUL THORACENTESIS USING ULTRASOUND GUIDANCE. Guidance Needle Placement CT 07/10/17 00:00 IMPRESSION: SUCCESSFUL CT GUIDED PERCUTANEOUS LUNG BIOPSY OF THE LEFT LOWER LOBE PLEURAL LESION. Lung Biopsy CT 07/10/17 00:00 IMPRESSION: SUCCESSFUL CT GUIDED PERCUTANEOUS LUNG BIOPSY OF THE LEFT LOWER LOBE PLEURAL LESION. Chest CT 07/10/17 08:00 IMPRESSION: SUCCESSFUL CT GUIDED PERCUTANEOUS LUNG BIOPSY OF THE LEFT LOWER LOBE PLEURAL LESION. Chest X-Ray 07/13/17 00:00 IMPRESSION: Persistent lower lung opacification and pleural effusions with no significant interval change. Assessment & Plan - Diagnosis (1) Congestive heart failure (CHF) Qualifiers: Heart failure type: diastolic Heart failure chronicity: chronic Qualified Code(s): I50.32 - Chronic diastolic (congestive) heart failure Is this a current diagnosis for this admission?: Yes (2) Atrial fibrillation Qualifiers: Atrial fibrillation type: unspecified Qualified Code(s): I48.91 - Unspecified atrial fibrillation Is this a current diagnosis for this admission?: Yes (3) Bilateral pleural effusion Is this a current diagnosis for this admission?: Yes (4) Chronic respiratory failure Qualifiers: Respiratory failure complication: hypoxia Qualified Code(s): J96.11 - Chronic respiratory failure with hypoxia Is this a current diagnosis for this admission?: Yes (5) Hypertension Is this a current diagnosis for this admission?: Yes (6) Leg swelling Is this a current diagnosis for this admission?: Yes (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 Feel that it is predominantly related to underlying lung condition and malignancy. There is some element of CHF. Feel patient general condition is very poor. Currently a DNR. Continue diuretics. Monitor pulmonary condition via chest x-ray, arterial blood gases. Will continue to follow patient's. Will repeat an EKG in the morning to assess underlying rhythm status. Overall prognosis is guarded. - Time Time with patient: 15-25 minutes Medications reviewed and adjusted accordingly: Yes
[2017-07-15] MEDS: TEMAZEPAM 7.5 MG CAPSULE PO SCH (22:50)
[2017-07-15] MEDS: MELATONIN 5 MG TABLET PO SCH (22:51)
[2017-07-15] MEDS: LATANOPROST 0.005% OPH SOLN 2.5 ML OP SCH (22:51)
[2017-07-16 05:31] LABS: ABSOLUTE BASOPHILS # (AUTO) 0.1 10^3/uL (0.0-0.2); ABSOLUTE EOSINOPHILS # (AUTO) 0.3 10^3/uL (0.0-0.6); ABSOLUTE LYMPHOCYTES (AUTO) 0.6 10^3/uL (0.5-4.7); ABSOLUTE MONOCYTES (AUTO) 0.5 10^3/uL (0.1-1.4); BASOPHILS % (AUTO) 1.2 % (0-2); EOSINOPHILS % (AUTO) 3.5 % (0-6); HEMATOCRIT 26.4 % (37.9-51.0); HEMOGLOBIN 8.5 g/dL (13.5-17.0); LYMPHOCYTES % (AUTO) 7.1 % (13-45); MEAN CORPUSCULAR HEMOGLOBIN 27.4 pg (27.0-33.4); MEAN CORPUSCULAR HGB CONC 32.1 g/dL (32.0-36.0); MEAN CORPUSCULAR VOLUME 85 fl (80-97); MONOCYTES % (AUTO) 5.8 % (3-13); PLATELET COUNT 336 10^3/uL (150-450); RED BLOOD COUNT 3.09 10^6/uL (4.35-5.55); RED CELL DISTRIBUTION WIDTH 17.2 % (11.5-14.0); SEGMENTED NEUTROPHILS % (AUTO) 82.4 % (42-78); TOTAL CELLS COUNTED % (AUTO) 100 %; WHITE BLOOD COUNT 8.5 10^3/uL (4.0-10.5)
[2017-07-16] MEDS: LEVOTHYROXINE SODIUM 0.025 MG TABLET PO SCH (05:33)
[2017-07-16] MEDS: LANSOPRAZOLE 15 MG TAB.RAP.DR PO SCH (05:34)
[2017-07-16 06:04] LABS: ANION GAP 12 (5-19); BLOOD UREA NITROGEN 53 mg/dL (7-20); CALCIUM 8.2 mg/dL (8.4-10.2); CARBON DIOXIDE 32 mmol/L (22-30); CHLORIDE 101 mmol/L (98-107); GLUCOSE 101 mg/dL (75-110); POTASSIUM 4.7 mmol/L (3.6-5.0); SODIUM 145.2 mmol/L (137-145)
[2017-07-16] MEDS: IPRATROPIUM/ALBUTEROL 0.5-2.5 MG/3 ML AMPUL NEB SCH ×3 (07:49→20:05)
[2017-07-16] MEDS ORDERED: NIVOLUMAB IV PRN (08:00)
[2017-07-16] MEDS ORDERED: NORMAL SALINE 250 ML IV PRN (08:00)
[2017-07-16] MEDS ORDERED: NORMAL SALINE IV PRN ×2 (08:00)
[2017-07-16] MEDS ORDERED: IPILIMUMAB IV PRN (08:00)
[2017-07-16] MEDS: GUAIFENESIN 600 MG TABLET.SA PO SCH ×2 (09:46→23:55)
[2017-07-16] MEDS: FINASTERIDE 5 MG TABLET PO SCH (09:46)
[2017-07-16] MEDS: TORSEMIDE 20 MG TABLET PO SCH (09:46)
[2017-07-16] MEDS: ENOXAPARIN SODIUM INJ 30 MG/0.3 ML DISP.SYRIN SUBCUT SCH (09:46)
[2017-07-16] MEDS: LACTOBACILLUS ACIDOPHILUS 250 MG TAB PO SCH ×2 (09:46→23:53)
[2017-07-16] MEDS: PANTOT AC/MIN OIL/PET HY-PHL OINT 50 GM TOP SCH ×2 (09:47→19:35)
[2017-07-16] MEDS: CLOBETASOL PROPIONATE 0.05% CREAM 15 GM TP SCH (09:47)
[2017-07-16] MEDS ORDERED: FUROSEMIDE INJ/PF 40 MG/4 ML SDV ONE (20:23)
[2017-07-16] MEDS ORDERED: FUROSEMIDE INJ/PF 40 MG/4 ML SDV IV ONE (21:00)
--- NOTE | 2017-07-16 21:51 | PDOC PROGRESS REPORT ---
Subjective Progress Note for:: 07/16/17 Subjective:: Still with shortness of breath with minimal efforts. He is tired, denies chest pain or palpitation at this time. Has cough, non productive. He is status post receiving a dose of ipilimumab/Nivolimab chemotherapy today per Dr. Sullivan 's order. No new complaint related to the chemo at this time. Reason For Visit: R91.8 OTHER NONSPECIFIC ABNORMAL FINDING OF LUNG F Physical Exam Vital Signs: Temp Pulse Resp BP Pulse Ox 98.9 F 75 18 124/42 L 88 L 07/16/17 16:29 07/16/17 16:29 07/16/17 16:29 07/16/17 16:29 07/16/17 16:29 Pulse Oximeter Continuous Start: 07/01/17 17: 32 Freq: RTQ4 Status: Active Document 07/16/17 16:00 [facility] (Rec: 07/16/17 16:39 DS [email or web address]) Pulse Oximetry Assessment Oxygen Saturation (92-100) 91 Oxygen Flow Rate (L/min) 4 Oxygen Delivery Method Nasal Cannula Equipment Usage Equipment in Use Continuous SpO2 Machine # 14 Intake & Output 07/15/17 07/16/17 07/17/17 06:59 06:59 06:59 Intake Total 1541 1093 410 Output Total 300 Balance 1241 1093 410 Weight 82.5 kg GEN: NAD, well-developed, well-nourished CV: RRR, NL S1S2 LUNGS: Crackles bases bilaterally, worse right. Decreased breath sounds worse on the left. ABDOMEN Soft, NT, +BS EXTERMITIES: 2+ lower extremity edema NEURO: Alert, oriented 3, generalized weakness Results Laboratory Results: 07/16/17 04:35 07/16/17 04:35 07/16/17 07/16/17 04:35 04:35 WBC 8.5 RBC 3.09 L Hgb 8.5 L Hct 26.4 L MCV 85 MCH 27.4 MCHC 32.1 RDW 17.2 H Plt Count 336 Seg Neutrophils % 82.4 H Lymphocytes % 7.1 L Monocytes % 5.8 Eosinophils % 3.5 Basophils % 1.2 Absolute Neutrophils 7.0 Absolute Lymphocytes 0.6 Absolute Monocytes 0.5 Absolute Eosinophils 0.3 Absolute Basophils 0.1 Sodium 145.2 H Potassium 4.7 Chloride 101 Carbon Dioxide 32 H Anion Gap 12 BUN 53 H Creatinine 2.08 H Est GFR ( Amer) 37 L Est GFR (Non-Af Amer) 31 L Glucose 101 Calcium 8.2 L 07/02/17 07/02/17 05:09 06:31 NT-Pro-B Natriuret Pep Cancelled 8420 H Impressions: Thoracentesis Ultrasound 07/01/17 00:00 IMPRESSION: SUCCESSFUL THORACENTESIS USING ULTRASOUND GUIDANCE. Guidance Needle Placement CT 07/10/17 00:00 IMPRESSION: SUCCESSFUL CT GUIDED PERCUTANEOUS LUNG BIOPSY OF THE LEFT LOWER LOBE PLEURAL LESION. Lung Biopsy CT 07/10/17 00:00 IMPRESSION: SUCCESSFUL CT GUIDED PERCUTANEOUS LUNG BIOPSY OF THE LEFT LOWER LOBE PLEURAL LESION. Chest CT 07/10/17 08:00 IMPRESSION: SUCCESSFUL CT GUIDED PERCUTANEOUS LUNG BIOPSY OF THE LEFT LOWER LOBE PLEURAL LESION. Chest X-Ray 07/13/17 00:00 IMPRESSION: Persistent lower lung opacification and pleural effusions with no significant interval change. Assessment & Plan - Plan Summary Plan Summary: (1) Bilateral pleural effusion Is this a current diagnosis for this admission?: Yes Plan: Secondary to metastatic renal cell cancer. Will continue diuresis and draing Pleurx as needed. 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 I explained this to the patient and he wants treatment even though his condition is tenuous. I spoke with his oncologist Dr Sullivan and she arranged for him to get a dose of biological agent, which he has received today, with plans to discharge him to custodial with rehab and possibly receive another dose in 3 weeks. (3) Chronic respiratory failure Qualifiers: Respiratory failure complication: hypoxia Qualified Code(s): J96.11 - Chronic respiratory failure with hypoxia Is this a current diagnosis for this admission?: Yes Plan: Continue current care, unlikely to get him back to his baseline respiratory status given his current pulmonary problems. (4) Hypertension Is this a current diagnosis for this admission?: Yes Plan: His blood pressure trending low. I have discontinued his amlodipine 2.5 mg daily. (5) Leg swelling Is this a current diagnosis for this admission?: Yes Plan: Multi-factorial. Patient is receiving Lasix. He had some dyspnea with holding the Lasix. We will continue to diurese and monitor. Patient has Cardiac issues which may be contributory. Cardiology consultation Dr. Doran appreciated. (6) Lung mass Is this a current diagnosis for this admission?: Yes Plan: This is metastatic renal cell cancer, clear cell type, per pathology report.
[2017-07-16] MEDS ORDERED: TEMAZEPAM 7.5 MG CAPSULE PO ONE (23:30)
[2017-07-16] MEDS ORDERED: TEMAZEPAM 7.5 MG CAPSULE ONE (23:50)
[2017-07-16] MEDS: MELATONIN 5 MG TABLET PO SCH (23:51)
[2017-07-16] MEDS: LATANOPROST 0.005% OPH SOLN 2.5 ML OP SCH (23:56)
[2017-07-17] MEDS: LANSOPRAZOLE 15 MG TAB.RAP.DR PO SCH (05:53)
[2017-07-17] MEDS: LEVOTHYROXINE SODIUM 0.025 MG TABLET PO SCH (05:53)
[2017-07-17 07:17] LABS: HEMATOCRIT 26.1 % (37.9-51.0); HEMOGLOBIN 8.2 g/dL (13.5-17.0); MEAN CORPUSCULAR HEMOGLOBIN 27.1 pg (27.0-33.4); MEAN CORPUSCULAR HGB CONC 31.5 g/dL (32.0-36.0); MEAN CORPUSCULAR VOLUME 86 fl (80-97); PLATELET COUNT 323 10^3/uL (150-450); RED BLOOD COUNT 3.03 10^6/uL (4.35-5.55); RED CELL DISTRIBUTION WIDTH 17.3 % (11.5-14.0); WHITE BLOOD COUNT 16.9 10^3/uL (4.0-10.5)
[2017-07-17 07:32] LABS: ANION GAP 12 (5-19); BLOOD UREA NITROGEN 58 mg/dL (7-20); CALCIUM 8.1 mg/dL (8.4-10.2); CARBON DIOXIDE 33 mmol/L (22-30); CHLORIDE 102 mmol/L (98-107); GLUCOSE 110 mg/dL (75-110); POTASSIUM 5.2 mmol/L (3.6-5.0); SODIUM 146.5 mmol/L (137-145)
[2017-07-17 08:03] LABS: ABSOLUTE LYMPHOCYTES# (MANUAL) 0.3 10^3/uL (0.5-4.7); ABSOLUTE MONOCYTES # (MANUAL) 0.3 10^3/uL (0.1-1.4); ABSOLUTE NEUTROPHILS# (MANUAL) 16.2 10^3/uL (1.7-8.2); ANISOCYTOSIS 2+; BAND NEUTROPHILS % (MANUAL) 2 % (3-5); BASOPHILS % (MANUAL) 0 % (0-2); EOSINOPHILS % (MANUAL) 0 % (0-6); HYPOCHROMASIA SLIGHT; LYMPHOCYTES % (MANUAL) 2 % (13-45); MONOCYTES % (MANUAL) 2 % (3-13); PLATELET COMMENT ADEQUATE; POLYCHROMASIA SLIGHT; SEGMENTED NEUTROPHILS % (MAN) 94 % (42-78); TOTAL CELLS COUNTED 100
[2017-07-17] MEDS: IPRATROPIUM/ALBUTEROL 0.5-2.5 MG/3 ML AMPUL NEB SCH ×3 (08:34→20:41)
[2017-07-17] MEDS: LACTOBACILLUS ACIDOPHILUS 250 MG TAB PO SCH ×2 (11:04→22:25)
[2017-07-17] MEDS: CLOBETASOL PROPIONATE 0.05% CREAM 15 GM TP SCH (11:05)
[2017-07-17] MEDS: GUAIFENESIN 600 MG TABLET.SA PO SCH ×2 (11:05→22:25)
[2017-07-17] MEDS: FINASTERIDE 5 MG TABLET PO SCH (11:05)
[2017-07-17] MEDS: PANTOT AC/MIN OIL/PET HY-PHL OINT 50 GM TOP SCH ×2 (11:06→17:34)
[2017-07-17] MEDS: ENOXAPARIN SODIUM INJ 30 MG/0.3 ML DISP.SYRIN SUBCUT SCH (11:06)
[2017-07-17] MEDS: TORSEMIDE 20 MG TABLET PO SCH (11:14)
[2017-07-17] MEDS ORDERED: NORMAL SALINE 500 ML IV ONE (12:30)
--- NOTE | 2017-07-17 12:59 | PDOC PROGRESS REPORT ---
Subjective Progress Note for:: 07/16/17 Subjective:: Patient remains significantly dyspneic but not any worse than last night. Remains with increased ventilatory rate. Remains on oxygen. Reason For Visit: R91.8 OTHER NONSPECIFIC ABNORMAL FINDING OF LUNG F Physical Exam Vital Signs: Temp Pulse Resp BP Pulse Ox 98.9 F 75 18 124/42 L 88 L 07/16/17 16:29 07/16/17 16:29 07/16/17 16:29 07/16/17 16:29 07/16/17 16:29 Pulse Oximeter Continuous Start: 07/01/17 17: 32 Freq: RTQ4 Status: Active Document 07/16/17 16:00 [facility] (Rec: 07/16/17 16:39 [facility] [email or web address]) Pulse Oximetry Assessment Oxygen Saturation (92-100) 91 Oxygen Flow Rate (L/min) 4 Oxygen Delivery Method Nasal Cannula Equipment Usage Equipment in Use Continuous SpO2 Machine # 14 Intake & Output 07/15/17 07/16/17 07/17/17 06:59 06:59 06:59 Intake Total 1541 1093 410 Output Total 300 Balance 1241 1093 410 Weight 82.5 kg Exam: GENERAL: well-nourished and in no acute distress. Alert and oriented x3 HEAD: Atraumatic, normocephalic. EYES: Pupils equal round and reactive to light, extraocular movements intact, sclera anicteric, conjunctiva are normal. ENT: TMs normal, nares patent, oropharynx clear without exudates. Moist mucous membranes. No oral ulcerations or bleeding gums noted NECK: supple without lymphadenopathy. Trachea is central. No cervical or axillary lymphadenopathy noted. Carotids are 2+, JVD WNL LUNGS: Respiration seems nonlabored, no significant accessory muscle action noted. Bilateral coarse crackles noted right more than left. Scattered wheezing wheezes rales or rhonchi noted. Mild tenderness right base noted on percussion. CHEST: Palpation of the chest wall shows no significant chest wall tenderness. 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 ABDOMEN: Soft, no significant tenderness appreciated, normoactive bowel sounds. No guarding, no rebound. No rigidity noted . No masses appreciated. EXTREMITIES: Pedal pulses are 1-2+, no calf tenderness noted. No clubbing or cyanosis. 1-2+ pedal edema noted NEUROLOGICAL: Focused neurological exam showed no significant neurologic deficit. Normal speech, no focal weakness appreciated. PSYCH: Normal mood, normal affect. Judgment and insight within normal limits. SKIN: No significant ecchymosis, skin is noted to be warm. MUSCULOSKELETAL EXAM: No significant acute joint swelling noted. Results Laboratory Results: 07/16/17 04:35 07/16/17 04:35 07/16/17 07/16/17 04:35 04:35 WBC 8.5 RBC 3.09 L Hgb 8.5 L Hct 26.4 L MCV 85 MCH 27.4 MCHC 32.1 RDW 17.2 H Plt Count 336 Seg Neutrophils % 82.4 H Lymphocytes % 7.1 L Monocytes % 5.8 Eosinophils % 3.5 Basophils % 1.2 Absolute Neutrophils 7.0 Absolute Lymphocytes 0.6 Absolute Monocytes 0.5 Absolute Eosinophils 0.3 Absolute Basophils 0.1 Sodium 145.2 H Potassium 4.7 Chloride 101 Carbon Dioxide 32 H Anion Gap 12 BUN 53 H Creatinine 2.08 H Est GFR ( Amer) 37 L Est GFR (Non-Af Amer) 31 L Glucose 101 Calcium 8.2 L 07/02/17 07/02/17 05:09 06:31 NT-Pro-B Natriuret Pep Cancelled 8420 H Impressions: Thoracentesis Ultrasound 07/01/17 00:00 IMPRESSION: SUCCESSFUL THORACENTESIS USING ULTRASOUND GUIDANCE. Guidance Needle Placement CT 07/10/17 00:00 IMPRESSION: SUCCESSFUL CT GUIDED PERCUTANEOUS LUNG BIOPSY OF THE LEFT LOWER LOBE PLEURAL LESION. Lung Biopsy CT 07/10/17 00:00 IMPRESSION: SUCCESSFUL CT GUIDED PERCUTANEOUS LUNG BIOPSY OF THE LEFT LOWER LOBE PLEURAL LESION. Chest CT 07/10/17 08:00 IMPRESSION: SUCCESSFUL CT GUIDED PERCUTANEOUS LUNG BIOPSY OF THE LEFT LOWER LOBE PLEURAL LESION. Chest X-Ray 07/13/17 00:00 IMPRESSION: Persistent lower lung opacification and pleural effusions with no significant interval change. Assessment & Plan - Diagnosis (1) Congestive heart failure (CHF) Qualifiers: Heart failure type: diastolic Heart failure chronicity: chronic Qualified Code(s): I50.32 - Chronic diastolic (congestive) heart failure Is this a current diagnosis for this admission?: Yes (2) Atrial fibrillation Qualifiers: Atrial fibrillation type: unspecified Qualified Code(s): I48.91 - Unspecified atrial fibrillation Is this a current diagnosis for this admission?: Yes (3) Bilateral pleural effusion Is this a current diagnosis for this admission?: Yes (4) Chronic respiratory failure Qualifiers: Respiratory failure complication: hypoxia Qualified Code(s): J96.11 - Chronic respiratory failure with hypoxia Is this a current diagnosis for this admission?: Yes (5) Hypertension Is this a current diagnosis for this admission?: Yes (6) Leg swelling Is this a current diagnosis for this admission?: Yes (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 Qualifiers: Laterality: left Qualified Code(s): C78.02 - Secondary malignant neoplasm of left lung; C64.9 - Malignant neoplasm of unspecified kidney, except renal pelvis; C64.9 - Malignant neoplasm of unspecified kidney, except renal pelvis; C64.9 - Malignant neoplasm of unspecified kidney, except renal pelvis; C64.9 - Malignant neoplasm of unspecified kidney, except renal pelvis Is this a current diagnosis for this admission?: Yes (8) Pulmonary hypertension Is this a current diagnosis for this admission?: Yes - Notes Notes: Dyspnea most likely related to pulmonary condition based on chest x-ray review. However has some element of CHF. Continue torsemide at current dose. Patient has history significant for malignancy. Based on previous echocardiogram, patient seems to have predominantly heart failure from diastolic dysfunction. However due to chronic lung problems he may have element of right heart failure. Continue patient on torsemide 10 mg p.o. daily. Because of significant comorbid diagnosis, prognosis is guarded. Chest x-ray shows significant right lower lobe pneumonia/consolidation. Also has some pathology of the left lower lobe. Recommend that pulmonary physician be involved. Patient currently DNR. Will continue to follow. - Time Time with patient: 15-25 minutes - CODE STATUS : was discussed, patient remains DO NOT RESUSCITATE. Surrogate decision-maker unchanged. Multiple medical problems were addressed. More than 50% of the time spent coordinating care, discussing management plans with involved caregivers. Management plans discussed with involved personnels. Medical decision making was of moderate to high complexity, patient's has multiple comorbidities. Medications reviewed and adjusted accordingly: Yes
--- NOTE | 2017-07-17 17:01 | PDOC PROGRESS REPORT ---
Subjective Progress Note for:: 07/17/17 Subjective:: Feel very weak today. Received combination IO (Ipi/Nivo) while inpatient on 07/16) . Mouth feels very dry and PO intake has been poor. Reason For Visit: R91.8 OTHER NONSPECIFIC ABNORMAL FINDING OF LUNG F Physical Exam Vital Signs: Temp Pulse Resp BP Pulse Ox 97.6 F 59 L 22 H 99/51 L 90 L 07/17/17 15:44 07/17/17 15:44 07/17/17 15:44 07/17/17 15:44 07/17/17 15:44 Pulse Oximeter Continuous Start: 07/01/17 17: 32 Freq: RTQ4 Status: Active Document 07/17/17 11:18 [facility] (Rec: 07/17/17 11:18 [facility] [email or web address]) Pulse Oximetry Assessment Oxygen Saturation (92-100) 93 Oxygen Flow Rate (L/min) 5 Oxygen Delivery Method Nasal Cannula Fraction of Inspired Oxygen (FIO2) 40 Equipment Usage Equipment in Use Continuous SpO2 Machine # 14 Intake & Output 07/16/17 07/17/17 07/18/17 06:59 06:59 06:59 Intake Total 1093 640 Output Total 450 Balance 1093 190 Weight 82.5 kg General appearance: PRESENT: thin, other - Chronically ill appearing, elderly male Mouth exam: PRESENT: dry mucosa Respiratory exam: PRESENT: decreased breath sounds - R>L, rhonchi, tachypnea. ABSENT: unlabored Cardiovascular exam: PRESENT: +S1, +S2. ABSENT: tachycardia GI/Abdominal exam: PRESENT: soft. ABSENT: tenderness Neurological exam: PRESENT: alert, awake, CN II-XII grossly intact Psychiatric exam: PRESENT: appropriate affect Results Laboratory Results: 07/17/17 06:50 07/17/17 06:50 07/17/17 07/17/17 06:50 06:50 WBC 16.9 H RBC 3.03 L Hgb 8.2 L Hct 26.1 L MCV 86 MCH 27.1 MCHC 31.5 L RDW 17.3 H Plt Count 323 Seg Neutrophils % Not Reportable Lymphocytes % Not Reportable Monocytes % Not Reportable Eosinophils % Not Reportable Basophils % Not Reportable Absolute Neutrophils Not Reportable Absolute Lymphocytes Not Reportable Absolute Monocytes Not Reportable Absolute Eosinophils Not Reportable Absolute Basophils Not Reportable Sodium 146.5 H Potassium 5.2 H Chloride 102 Carbon Dioxide 33 H Anion Gap 12 BUN 58 H Creatinine 2.45 H Est GFR ( Amer) 31 L Est GFR (Non-Af Amer) 25 L Glucose 110 Calcium 8.1 L 07/02/17 07/02/17 05:09 06:31 NT-Pro-B Natriuret Pep Cancelled 8420 H Impressions: Thoracentesis Ultrasound 07/01/17 00:00 IMPRESSION: SUCCESSFUL THORACENTESIS USING ULTRASOUND GUIDANCE. Guidance Needle Placement CT 07/10/17 00:00 IMPRESSION: SUCCESSFUL CT GUIDED PERCUTANEOUS LUNG BIOPSY OF THE LEFT LOWER LOBE PLEURAL LESION. Lung Biopsy CT 07/10/17 00:00 IMPRESSION: SUCCESSFUL CT GUIDED PERCUTANEOUS LUNG BIOPSY OF THE LEFT LOWER LOBE PLEURAL LESION. Chest CT 07/10/17 08:00 IMPRESSION: SUCCESSFUL CT GUIDED PERCUTANEOUS LUNG BIOPSY OF THE LEFT LOWER LOBE PLEURAL LESION. Chest X-Ray 07/13/17 00:00 IMPRESSION: Persistent lower lung opacification and pleural effusions with no significant interval change. Assessment & Plan - Diagnosis (1) Metastatic renal cell carcinoma to lung Qualifiers: Laterality: left Qualified Code(s): C78.02 - Secondary malignant neoplasm of left lung; C64.9 - Malignant neoplasm of unspecified kidney, except renal pelvis; C64.9 - Malignant neoplasm of unspecified kidney, except renal pelvis; C64.9 - Malignant neoplasm of unspecified kidney, except renal pelvis; C64.9 - Malignant neoplasm of unspecified kidney, except renal pelvis Is this a current diagnosis for this admission?: Yes Plan: Biopsy confirmed. Received C1 Ipi/Nivo on 07/16 while inpatient. Followed by Dr. Sullivan. Patient is extremely fatigued appearing. I counseled him that this is likely a combination of his cancer, hospitalization, generalized weakness, and immunotherapy. I also told him that a he should NOT expect a quick response after 1st cycle of IO therapy. Would be very cautious of giving this frail gentleman additional therapy given a PFS 3 especially while inpatient. (2) WARNER (acute kidney injury) Is this a current diagnosis for this admission?: Yes Plan: Noted to have worsening renal function, Cr 1.44 on 07/12 and currently 2.45 on 07/17. Likely multifactorial etiology - Given dry appearance, gave onet yuliya 500CC IV NS bolus (3) Bilateral pleural effusion Is this a current diagnosis for this admission?: Yes Plan: Secondary to metastatic renal cell cancer. Continue Pleurx. Cautious diuretic use, will hold Torsemide for now given worsening renal fx (4) Chronic respiratory failure Qualifiers: Respiratory failure complication: hypoxia Qualified Code(s): J96.11 - Chronic respiratory failure with hypoxia Is this a current diagnosis for this admission?: Yes Plan: Due to [facility] - Time Time Spent with patient: 15-24 minutes
[2017-07-17] MEDS: MELATONIN 5 MG TABLET PO SCH (22:25)
[2017-07-17] MEDS: TEMAZEPAM 7.5 MG CAPSULE PO SCH (22:25)
[2017-07-17] MEDS: LATANOPROST 0.005% OPH SOLN 2.5 ML OP SCH (22:26)
[2017-07-18] MEDS: LANSOPRAZOLE 15 MG TAB.RAP.DR PO SCH (05:42)
[2017-07-18] MEDS: LEVOTHYROXINE SODIUM 0.025 MG TABLET PO SCH (05:42)
[2017-07-18 06:07] LABS: ANION GAP 10 (5-19); BLOOD UREA NITROGEN 70 mg/dL (7-20); CALCIUM 8.5 mg/dL (8.4-10.2); CARBON DIOXIDE 33 mmol/L (22-30); CHLORIDE 102 mmol/L (98-107); GLUCOSE 86 mg/dL (75-110); POTASSIUM 5.5 mmol/L (3.6-5.0); SODIUM 145.2 mmol/L (137-145)
[2017-07-18 06:17] LABS: HEMATOCRIT 27.4 % (37.9-51.0); HEMOGLOBIN 8.8 g/dL (13.5-17.0); MEAN CORPUSCULAR HEMOGLOBIN 27.3 pg (27.0-33.4); MEAN CORPUSCULAR VOLUME 85 fl (80-97); PLATELET COUNT 183 10^3/uL (150-450); RED BLOOD COUNT 3.21 10^6/uL (4.35-5.55); RED CELL DISTRIBUTION WIDTH 17.1 % (11.5-14.0); WHITE BLOOD COUNT 10.4 10^3/uL (4.0-10.5)
[2017-07-18] MEDS: IPRATROPIUM/ALBUTEROL 0.5-2.5 MG/3 ML AMPUL NEB SCH ×3 (08:01→19:48)
[2017-07-18] MEDS: ENOXAPARIN SODIUM INJ 30 MG/0.3 ML DISP.SYRIN SUBCUT SCH (11:03)
[2017-07-18] MEDS: FINASTERIDE 5 MG TABLET PO SCH (11:05)
[2017-07-18] MEDS: LACTOBACILLUS ACIDOPHILUS 250 MG TAB PO SCH ×2 (11:06→22:16)
[2017-07-18] MEDS: PANTOT AC/MIN OIL/PET HY-PHL OINT 50 GM TOP SCH ×2 (11:07→17:35)
[2017-07-18] MEDS: CLOBETASOL PROPIONATE 0.05% CREAM 15 GM TP SCH (11:13)
[2017-07-18] MEDS: GUAIFENESIN 600 MG TABLET.SA PO SCH ×2 (11:13→22:15)
--- NOTE | 2017-07-18 12:10 | PDOC PROGRESS REPORT ---
Subjective Progress Note for:: 07/18/17 Subjective:: Doing better today. Received combination IO (Ipi/Nivo) while inpatient on 07/16). Breathing less laborous today. Mouth dry. PO intake more today and eating breakfast. Sittign inb edside chair. Denies fevers, chills. Reason For Visit: R91.8 OTHER NONSPECIFIC ABNORMAL FINDING OF LUNG F Physical Exam Vital Signs: Temp Pulse Resp BP Pulse Ox 98.5 F 67 21 H 103/34 L 92 07/18/17 07:59 07/18/17 08:01 07/18/17 08:01 07/18/17 07:59 07/18/17 08:01 Pulse Oximeter Continuous Start: 07/01/17 17: 32 Freq: RTQ4 Status: Active Document 07/18/17 08:01 HCR (Rec: 07/18/17 10:55 HCR [email or web address]) Pulse Oximetry Assessment Oxygen Saturation (92-100) 92 Oxygen Flow Rate (L/min) 4 Oxygen Delivery Method Nasal Cannula Equipment Usage Equipment in Use Continuous SpO2 Machine # 14 Intake & Output 07/17/17 07/18/17 07/19/17 06:59 06:59 06:59 Intake Total 640 1290 Output Total 450 775 Balance 190 515 Weight 82.5 kg General appearance: PRESENT: no acute distress, cooperative, thin, other - Sitting in bedside chair Head exam: PRESENT: normocephalic Mouth exam: PRESENT: dry mucosa Respiratory exam: PRESENT: rhonchi, unlabored, other - On supplemental O2 Cardiovascular exam: PRESENT: +S1, +S2, tachycardia GI/Abdominal exam: PRESENT: soft. ABSENT: tenderness Neurological exam: PRESENT: alert, awake, CN II-XII grossly intact Psychiatric exam: PRESENT: appropriate affect Results Laboratory Results: 07/18/17 05:36 07/18/17 05:36 07/18/17 07/18/17 05:36 05:36 WBC 10.4 RBC 3.21 L Hgb 8.8 L Hct 27.4 L MCV 85 MCH 27.3 MCHC 32.0 RDW 17.1 H Plt Count 183 Sodium 145.2 H Potassium 5.5 H Chloride 102 Carbon Dioxide 33 H Anion Gap 10 BUN 70 H Creatinine 2.50 H Est GFR ( Amer) 30 L Est GFR (Non-Af Amer) 25 L Glucose 86 Calcium 8.5 07/02/17 07/02/17 05:09 06:31 NT-Pro-B Natriuret Pep Cancelled 8420 H Impressions: Thoracentesis Ultrasound 07/01/17 00:00 IMPRESSION: SUCCESSFUL THORACENTESIS USING ULTRASOUND GUIDANCE. Guidance Needle Placement CT 07/10/17 00:00 IMPRESSION: SUCCESSFUL CT GUIDED PERCUTANEOUS LUNG BIOPSY OF THE LEFT LOWER LOBE PLEURAL LESION. Lung Biopsy CT 07/10/17 00:00 IMPRESSION: SUCCESSFUL CT GUIDED PERCUTANEOUS LUNG BIOPSY OF THE LEFT LOWER LOBE PLEURAL LESION. Chest CT 07/10/17 08:00 IMPRESSION: SUCCESSFUL CT GUIDED PERCUTANEOUS LUNG BIOPSY OF THE LEFT LOWER LOBE PLEURAL LESION. Chest X-Ray 07/13/17 00:00 IMPRESSION: Persistent lower lung opacification and pleural effusions with no significant interval change. Assessment & Plan - Diagnosis (1) Metastatic renal cell carcinoma to lung Qualifiers: Laterality: left Qualified Code(s): C78.02 - Secondary malignant neoplasm of left lung; C64.9 - Malignant neoplasm of unspecified kidney, except renal pelvis; C64.9 - Malignant neoplasm of unspecified kidney, except renal pelvis; C64.9 - Malignant neoplasm of unspecified kidney, except renal pelvis; C64.9 - Malignant neoplasm of unspecified kidney, except renal pelvis Is this a current diagnosis for this admission?: Yes Plan: Biopsy confirmed. Received C1 Ipi/Nivo on 07/16 while inpatient. Followed by Dr. Sullivan. Patient is extremely fatigued appearing. I counseled him that this is likely a combination of his cancer, hospitalization, generalized weakness, and immunotherapy. I also told him that a he should NOT expect a quick response after 1st cycle of IO therapy. Would be very cautious of giving this frail gentleman additional therapy given a PFS 3. Will need rehab (2) WARNER (acute kidney injury) Is this a current diagnosis for this admission?: Yes Plan: Noted to have worsening renal function, Cr 1.44 on 07/12 and currently 2.45 on 07/17. Likely multifactorial etiology - Received 500CC IV NS bolus on 07/17 - Encouraged increased PO intake on 07/18 now that he is feeling better (3) Bilateral pleural effusion Is this a current diagnosis for this admission?: Yes (4) Chronic respiratory failure Qualifiers: Respiratory failure complication: hypoxia Qualified Code(s): J96.11 - Chronic respiratory failure with hypoxia Is this a current diagnosis for this admission?: Yes Plan: Due to [facility] - Time Time Spent with patient: 15-24 minutes Anticipated discharge: SNF
--- NOTE | 2017-07-18 15:33 | PDOC PROGRESS REPORT ---
Subjective Progress Note for:: 07/17/17 Subjective:: Patient remains significantly dyspneic but not any worse than last night in fact patient may be somewhat better. Breathing somewhat easier per patient. Remains on oxygen. Still has leg edema but improved. Reason For Visit: R91.8 OTHER NONSPECIFIC ABNORMAL FINDING OF LUNG F Physical Exam Vital Signs: Temp Pulse Resp BP Pulse Ox 98.4 F 70 29 H 102/43 L 95 07/17/17 19:40 07/17/17 19:40 07/17/17 19:40 07/17/17 19:40 07/17/17 19:40 Pulse Oximeter Continuous Start: 07/01/17 17: 32 Freq: RTQ4 Status: Active Document 07/17/17 11:18 TPO (Rec: 07/17/17 11:18 TPO [email or web address]) Pulse Oximetry Assessment Oxygen Saturation (92-100) 93 Oxygen Flow Rate (L/min) 5 Oxygen Delivery Method Nasal Cannula Fraction of Inspired Oxygen (FIO2) 40 Equipment Usage Equipment in Use Continuous SpO2 Machine # 14 Intake & Output 07/16/17 07/17/17 07/18/17 06:59 06:59 06:59 Intake Total 1093 640 980 Output Total 450 550 Balance 1093 190 430 Weight 82.5 kg Exam: GENERAL: well-nourished and in no acute distress. Alert and oriented x3 HEAD: Atraumatic, normocephalic. EYES: Pupils equal round and reactive to light, extraocular movements intact, sclera anicteric, conjunctiva are normal. ENT: TMs normal, nares patent, oropharynx clear without exudates. Moist mucous membranes. No oral ulcerations or bleeding gums noted NECK: supple without lymphadenopathy. Trachea is central. No cervical or axillary lymphadenopathy noted. Carotids are 2+, JVD 8 cm LUNGS: Respiration seems nonlabored, no significant accessory muscle action noted. Bibasilar fine crackles noted right more than left. Mild dullness noted right base. CHEST: Palpation of the chest wall shows no significant chest wall tenderness. HEART: [place] [employer], No PSH, 1/6 LICHA aortic area, 1/6 mittal systolic murmur mitral area, no rubs, no gallops. ABDOMEN: Soft, no significant tenderness appreciated, normoactive bowel sounds. No guarding, no rebound. No rigidity noted . No masses appreciated. EXTREMITIES: Pedal pulses are 1-2+, no calf tenderness noted. No clubbing or cyanosis. 1-2+ pedal edema noted NEUROLOGICAL: Focused neurological exam showed no significant neurologic deficit. Normal speech, no focal weakness appreciated. PSYCH: Normal mood, normal affect. Judgment and insight within normal limits. SKIN: No significant ecchymosis, skin is noted to be warm. MUSCULOSKELETAL EXAM: No significant acute joint swelling noted. Results Laboratory Results: 07/17/17 06:50 07/17/17 06:50 07/17/17 07/17/17 06:50 06:50 WBC 16.9 H RBC 3.03 L Hgb 8.2 L Hct 26.1 L MCV 86 MCH 27.1 MCHC 31.5 L RDW 17.3 H Plt Count 323 Seg Neutrophils % Not Reportable Lymphocytes % Not Reportable Monocytes % Not Reportable Eosinophils % Not Reportable Basophils % Not Reportable Absolute Neutrophils Not Reportable Absolute Lymphocytes Not Reportable Absolute Monocytes Not Reportable Absolute Eosinophils Not Reportable Absolute Basophils Not Reportable Sodium 146.5 H Potassium 5.2 H Chloride 102 Carbon Dioxide 33 H Anion Gap 12 BUN 58 H Creatinine 2.45 H Est GFR ( Amer) 31 L Est GFR (Non-Af Amer) 25 L Glucose 110 Calcium 8.1 L 07/02/17 07/02/17 05:09 06:31 NT-Pro-B Natriuret Pep Cancelled 8420 H EKG Comments: Atrial fibrillation with intermittent ventricular paced beats. Impressions: Thoracentesis Ultrasound 07/01/17 00:00 IMPRESSION: SUCCESSFUL THORACENTESIS USING ULTRASOUND GUIDANCE. Guidance Needle Placement CT 07/10/17 00:00 IMPRESSION: SUCCESSFUL CT GUIDED PERCUTANEOUS LUNG BIOPSY OF THE LEFT LOWER LOBE PLEURAL LESION. Lung Biopsy CT 07/10/17 00:00 IMPRESSION: SUCCESSFUL CT GUIDED PERCUTANEOUS LUNG BIOPSY OF THE LEFT LOWER LOBE PLEURAL LESION. Chest CT 07/10/17 08:00 IMPRESSION: SUCCESSFUL CT GUIDED PERCUTANEOUS LUNG BIOPSY OF THE LEFT LOWER LOBE PLEURAL LESION. Chest X-Ray 07/13/17 00:00 IMPRESSION: Persistent lower lung opacification and pleural effusions with no significant interval change. Assessment & Plan - Diagnosis (1) Congestive heart failure (CHF) Qualifiers: Heart failure type: diastolic Heart failure chronicity: chronic Qualified Code(s): I50.32 - Chronic diastolic (congestive) heart failure Is this a current diagnosis for this admission?: Yes (2) Atrial fibrillation Qualifiers: Atrial fibrillation type: unspecified Qualified Code(s): I48.91 - Unspecified atrial fibrillation Is this a current diagnosis for this admission?: Yes (3) Bilateral pleural effusion Is this a current diagnosis for this admission?: Yes (4) Chronic respiratory failure Qualifiers: Respiratory failure complication: hypoxia Qualified Code(s): J96.11 - Chronic respiratory failure with hypoxia Is this a current diagnosis for this admission?: Yes (5) Hypertension Is this a current diagnosis for this admission?: Yes (6) Leg swelling Is this a current diagnosis for this admission?: Yes (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 Qualifiers: Laterality: left Qualified Code(s): C78.02 - Secondary malignant neoplasm of left lung; C64.9 - Malignant neoplasm of unspecified kidney, except renal pelvis; C64.9 - Malignant neoplasm of unspecified kidney, except renal pelvis; C64.9 - Malignant neoplasm of unspecified kidney, except renal pelvis; C64.9 - Malignant neoplasm of unspecified kidney, except renal pelvis Is this a current diagnosis for this admission?: Yes (8) Pulmonary hypertension Is this a current diagnosis for this admission?: Yes - Notes Notes: Dyspnea: Seems improved. Predominantly related to pulmonary condition. However has some element of CHF. Continue torsemide at current dose. Patient has history significant for malignancy. Based on previous echocardiogram, patient seems to have predominantly heart failure from diastolic dysfunction. However due to chronic lung problems he may have element of right heart failure. Continue patient on torsemide 10 mg p.o. daily. Because of significant comorbid diagnosis, prognosis is guarded. Chest x-ray shows significant right lower lobe pneumonia/consolidation. Also has some pathology of the left lower lobe. Patient currently DNR. Will continue to follow - Time Time with patient: 15-25 minutes Medications reviewed and adjusted accordingly: Yes
--- NOTE | 2017-07-18 15:38 | PDOC PROGRESS REPORT ---
Subjective Progress Note for:: 07/18/17 Subjective:: Patient claims to be feeling much improved today. His sitting on the bedside chair. Still has oxygen on and remains on oxygen. Still has leg edema but improved. Reason For Visit: R91.8 OTHER NONSPECIFIC ABNORMAL FINDING OF LUNG F Physical Exam Vital Signs: Temp Pulse Resp BP Pulse Ox 97.4 F 62 18 122/43 L 91 L 07/18/17 11:45 07/18/17 14:16 07/18/17 14:16 07/18/17 11:45 07/18/17 14:16 Pulse Oximeter Continuous Start: 07/01/17 17: 32 Freq: RTQ4 Status: Active Document 07/18/17 12:00 HCR (Rec: 07/18/17 14:51 HCR [email or web address]) Pulse Oximetry Assessment Oxygen Saturation (92-100) 92 Oxygen Flow Rate (L/min) 4 Oxygen Delivery Method Nasal Cannula Equipment Usage Equipment in Use Continuous SpO2 Machine # 14 Intake & Output 07/17/17 07/18/17 07/19/17 06:59 06:59 06:59 Intake Total 640 1290 Output Total 450 775 Balance 190 515 Weight 82.5 kg Exam: GENERAL: well-nourished and in no acute distress. Alert and oriented x3 HEAD: Atraumatic, normocephalic. EYES: Pupils equal round and reactive to light, extraocular movements intact, sclera anicteric, conjunctiva are normal. ENT: TMs normal, nares patent, oropharynx clear without exudates. Moist mucous membranes. No oral ulcerations or bleeding gums noted NECK: supple without lymphadenopathy. Trachea is central. No cervical or axillary lymphadenopathy noted. Carotids are 2+, JVD WNL LUNGS: Respiration seems nonlabored, no significant accessory muscle action noted. Bibasilar fine crackles noted right more than left. No wheezes rales or rhonchi noted. No significant dullness noted on percussion. CHEST: Palpation of the chest wall shows no significant chest wall tenderness. HEART: [place] [employer], No PSH, 1/6 LICHA aortic area, 1/6 mittal systolic murmur mitral area, no rubs, no gallops. ABDOMEN: Soft, no significant tenderness appreciated, normoactive bowel sounds. No guarding, no rebound. No rigidity noted . No masses appreciated. EXTREMITIES: Pedal pulses are 1-2+, no calf tenderness noted. No clubbing or cyanosis. negative pedal edema noted NEUROLOGICAL: Focused neurological exam showed no significant neurologic deficit. Normal speech, no focal weakness appreciated. PSYCH: Normal mood, normal affect. Judgment and insight within normal limits. SKIN: No significant ecchymosis, skin is noted to be warm. MUSCULOSKELETAL EXAM: No significant acute joint swelling noted. Results Laboratory Results: 07/18/17 05:36 07/18/17 05:36 07/18/17 07/18/17 05:36 05:36 WBC 10.4 RBC 3.21 L Hgb 8.8 L Hct 27.4 L MCV 85 MCH 27.3 MCHC 32.0 RDW 17.1 H Plt Count 183 Sodium 145.2 H Potassium 5.5 H Chloride 102 Carbon Dioxide 33 H Anion Gap 10 BUN 70 H Creatinine 2.50 H Est GFR ( Amer) 30 L Est GFR (Non-Af Amer) 25 L Glucose 86 Calcium 8.5 07/02/17 07/02/17 05:09 06:31 NT-Pro-B Natriuret Pep Cancelled 8420 H Impressions: Thoracentesis Ultrasound 07/01/17 00:00 IMPRESSION: SUCCESSFUL THORACENTESIS USING ULTRASOUND GUIDANCE. Guidance Needle Placement CT 07/10/17 00:00 IMPRESSION: SUCCESSFUL CT GUIDED PERCUTANEOUS LUNG BIOPSY OF THE LEFT LOWER LOBE PLEURAL LESION. Lung Biopsy CT 07/10/17 00:00 IMPRESSION: SUCCESSFUL CT GUIDED PERCUTANEOUS LUNG BIOPSY OF THE LEFT LOWER LOBE PLEURAL LESION. Chest CT 07/10/17 08:00 IMPRESSION: SUCCESSFUL CT GUIDED PERCUTANEOUS LUNG BIOPSY OF THE LEFT LOWER LOBE PLEURAL LESION. Chest X-Ray 07/13/17 00:00 IMPRESSION: Persistent lower lung opacification and pleural effusions with no significant interval change. Assessment & Plan - Diagnosis (1) Congestive heart failure (CHF) Qualifiers: Heart failure type: diastolic Heart failure chronicity: chronic Qualified Code(s): I50.32 - Chronic diastolic (congestive) heart failure Is this a current diagnosis for this admission?: Yes (2) Atrial fibrillation Qualifiers: Atrial fibrillation type: unspecified Qualified Code(s): I48.91 - Unspecified atrial fibrillation Is this a current diagnosis for this admission?: Yes (3) Bilateral pleural effusion Is this a current diagnosis for this admission?: Yes (4) Chronic respiratory failure Qualifiers: Respiratory failure complication: hypoxia Qualified Code(s): J96.11 - Chronic respiratory failure with hypoxia Is this a current diagnosis for this admission?: Yes (5) Hypertension Is this a current diagnosis for this admission?: Yes (6) Leg swelling Is this a current diagnosis for this admission?: Yes (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 Qualifiers: Laterality: left Qualified Code(s): C78.02 - Secondary malignant neoplasm of left lung; C64.9 - Malignant neoplasm of unspecified kidney, except renal pelvis; C64.9 - Malignant neoplasm of unspecified kidney, except renal pelvis; C64.9 - Malignant neoplasm of unspecified kidney, except renal pelvis; C64.9 - Malignant neoplasm of unspecified kidney, except renal pelvis Is this a current diagnosis for this admission?: Yes (8) Pulmonary hypertension Is this a current diagnosis for this admission?: Yes - Notes Notes: Congestive heart failure: Seems improved. Will repeat a BNP level, chest x-ray and an EKG tomorrow. Continue torsemide at same dose. Atrial fibrillation: Currently seems rate well controlled. Patient has backup pacemaker. Repeat EKG in the morning. Currently not on chronic anticoagulation. This decision is being left to the oncologist while 0205 patient currently getting chemotherapy. Bilateral pleural effusion: Will repeat a chest x-ray PA and lateral in the morning. Hypertension: Blood pressure under satisfactory control. Pedal edema: Improved but still some persistent pedal edema. Recommend support stockings. Metastatic malignancy: Patient being treated by oncologist. Pulmonary hypertension: Continue oxygen supplementation. - Time Time with patient: 15-25 minutes - CODE STATUS : was discussed, patient remains DO NOT RESUSCITATE. Surrogate decision-maker unchanged. Multiple medical problems were addressed. More than 50% of the time spent coordinating care, discussing management plans with involved caregivers. Management plans discussed with involved personnels. Medical decision making was of moderate to high complexity, patient's has multiple comorbidities. Medications reviewed and adjusted accordingly: Yes
[2017-07-18] MEDS: MELATONIN 5 MG TABLET PO SCH (22:15)
[2017-07-18] MEDS: TEMAZEPAM 7.5 MG CAPSULE PO SCH (22:16)
[2017-07-18] MEDS: LATANOPROST 0.005% OPH SOLN 2.5 ML OP SCH (22:16)
[2017-07-19] MEDS: LEVOTHYROXINE SODIUM 0.025 MG TABLET PO SCH (06:33)
[2017-07-19] MEDS: LANSOPRAZOLE 15 MG TAB.RAP.DR PO SCH (06:33)
[2017-07-19 06:39] LABS: ANION GAP 14 (5-19); BLOOD UREA NITROGEN 75 mg/dL (7-20); CALCIUM 8.2 mg/dL (8.4-10.2); CARBON DIOXIDE 29 mmol/L (22-30); CHLORIDE 102 mmol/L (98-107); GLUCOSE 99 mg/dL (75-110); SODIUM 144.8 mmol/L (137-145)
[2017-07-19] MEDS: IPRATROPIUM/ALBUTEROL 0.5-2.5 MG/3 ML AMPUL NEB SCH ×3 (07:48→19:59)
--- NOTE | 2017-07-19 09:36 | RADIOLOGY REPORT (SQ) ---
EXAM DESCRIPTION: CHEST 2 VIEWS COMPLETED DATE/TIME: 07/19/2017 9:23 am REASON FOR STUDY: followup CHF COMPARISON: 07/09/2017. EXAM PARAMETERS: NUMBER OF VIEWS: two views TECHNIQUE: Digital Frontal and Lateral radiographic views of the chest acquired. RADIATION DOSE: NA LIMITATIONS: none FINDINGS: LUNGS AND PLEURA: Increased multifocal airspace disease with bilateral pleural effusions. MEDIASTINUM AND HILAR STRUCTURES: No masses or contour abnormalities. HEART AND VASCULAR STRUCTURES: Stable. BONES: No acute findings. HARDWARE: Stable. OTHER: No other significant finding. IMPRESSION: INCREASED MULTIFOCAL AIRSPACE DISEASE WITH BILATERAL PLEURAL EFFUSIONS. TECHNICAL DOCUMENTATION: JOB ID: [id number] [employer]- All Rights Reserved Reading location - IP/workstation name: [email or web address]
[2017-07-19] MEDS: LACTOBACILLUS ACIDOPHILUS 250 MG TAB PO SCH ×2 (09:54→21:56)
[2017-07-19] MEDS: TORSEMIDE 20 MG TABLET PO SCH (09:54)
[2017-07-19] MEDS: GUAIFENESIN 600 MG TABLET.SA PO SCH ×2 (09:55→21:56)
[2017-07-19] MEDS: FINASTERIDE 5 MG TABLET PO SCH (09:55)
[2017-07-19] MEDS: ENOXAPARIN SODIUM INJ 30 MG/0.3 ML DISP.SYRIN SUBCUT SCH (09:56)
[2017-07-19] MEDS: CLOBETASOL PROPIONATE 0.05% CREAM 15 GM TP SCH (09:57)
--- NOTE | 2017-07-19 10:30 | EKG REPORT ---
SEVERITY:- ABNORMAL ECG - ATRIAL-SENSED VENTRICULAR-PACED COMPLEXES NONSPECIFIC IVCD WITH LAD : Confirmed by: Jessica Doran 19-Jul-2017 10:29:14
--- NOTE | 2017-07-19 13:11 | PDOC PROGRESS REPORT ---
Subjective Progress Note for:: 07/19/17 Subjective:: Patient's respiration and breathing is better. Chest x-ray reviewed shows worsening infiltrates and effusion. Remains on oxygen. Still has leg edema but improved. Reason For Visit: R91.8 OTHER NONSPECIFIC ABNORMAL FINDING OF LUNG F Physical Exam Vital Signs: Temp Pulse Resp BP Pulse Ox 97.8 F 69 21 H 104/43 L 93 07/19/17 04:17 07/19/17 07:48 07/19/17 07:48 07/19/17 04:17 07/19/17 12:12 Pulse Oximeter Continuous Start: 07/01/17 17: 32 Freq: RTQ4 Status: Active Document 07/19/17 12:12 HCR (Rec: 07/19/17 12:12 HCR [email or web address]) Pulse Oximetry Assessment Oxygen Saturation (92-100) 93 Oxygen Flow Rate (L/min) 4 Oxygen Delivery Method Nasal Cannula Equipment Usage Equipment in Use Continuous SpO2 Machine # 14 Intake & Output 07/18/17 07/19/17 07/20/17 06:59 06:59 06:59 Intake Total 1290 1399 Output Total 775 Balance 515 1399 Exam: GENERAL: well-nourished and in no acute distress. Alert and oriented x3 HEAD: Atraumatic, normocephalic. EYES: Pupils equal round and reactive to light, extraocular movements intact, sclera anicteric, conjunctiva are normal. ENT: TMs normal, nares patent, oropharynx clear without exudates. Moist mucous membranes. No oral ulcerations or bleeding gums noted NECK: supple without lymphadenopathy. Trachea is central. No cervical or axillary lymphadenopathy noted. Carotids are 2+, JVD WNL LUNGS: Respiration seems nonlabored, no significant accessory muscle action noted. Bilateral coarse crackles noted right more than left. Dullness noted both bases right more than left. CHEST: Palpation of the chest wall shows no significant chest wall tenderness. HEART: [place] [employer], No PSH, 1/6 LICHA aortic area, 1/6 mittal systolic murmur mitral area, no rubs, no gallops. ABDOMEN: Soft, no significant tenderness appreciated, normoactive bowel sounds. No guarding, no rebound. No rigidity noted . No masses appreciated. EXTREMITIES: Pedal pulses are 1-2+, no calf tenderness noted. No clubbing or cyanosis. 2+ pedal edema noted NEUROLOGICAL: Focused neurological exam showed no significant neurologic deficit. Normal speech, no focal weakness appreciated. PSYCH: Normal mood, normal affect. Judgment and insight within normal limits. SKIN: No significant ecchymosis, skin is noted to be warm. MUSCULOSKELETAL EXAM: No significant acute joint swelling noted. Results Laboratory Results: 07/18/17 05:36 07/19/17 04:46 07/19/17 04:46 Sodium 144.8 Potassium 5.0 Chloride 102 Carbon Dioxide 29 Anion Gap 14 BUN 75 H Creatinine 2.68 H Est GFR ( Amer) 28 L Est GFR (Non-Af Amer) 23 L Glucose 99 Calcium 8.2 L 07/02/17 07/02/17 05:09 06:31 NT-Pro-B Natriuret Pep Cancelled 8420 H Impressions: Thoracentesis Ultrasound 07/01/17 00:00 IMPRESSION: SUCCESSFUL THORACENTESIS USING ULTRASOUND GUIDANCE. Guidance Needle Placement CT 07/10/17 00:00 IMPRESSION: SUCCESSFUL CT GUIDED PERCUTANEOUS LUNG BIOPSY OF THE LEFT LOWER LOBE PLEURAL LESION. Lung Biopsy CT 07/10/17 00:00 IMPRESSION: SUCCESSFUL CT GUIDED PERCUTANEOUS LUNG BIOPSY OF THE LEFT LOWER LOBE PLEURAL LESION. Chest CT 07/10/17 08:00 IMPRESSION: SUCCESSFUL CT GUIDED PERCUTANEOUS LUNG BIOPSY OF THE LEFT LOWER LOBE PLEURAL LESION. Chest X-Ray 07/19/17 08:39 IMPRESSION: INCREASED MULTIFOCAL AIRSPACE DISEASE WITH BILATERAL PLEURAL EFFUSIONS. Assessment & Plan - Diagnosis (1) Congestive heart failure (CHF) Qualifiers: Heart failure type: diastolic Heart failure chronicity: chronic Qualified Code(s): I50.32 - Chronic diastolic (congestive) heart failure Is this a current diagnosis for this admission?: Yes (2) Atrial fibrillation Qualifiers: Atrial fibrillation type: unspecified Qualified Code(s): I48.91 - Unspecified atrial fibrillation Is this a current diagnosis for this admission?: Yes (3) Bilateral pleural effusion Is this a current diagnosis for this admission?: Yes (4) Chronic respiratory failure Qualifiers: Respiratory failure complication: hypoxia Qualified Code(s): J96.11 - Chronic respiratory failure with hypoxia Is this a current diagnosis for this admission?: Yes (5) Hypertension Qualifiers: Hypertension type: essential hypertension Qualified Code(s): I10 - Essential (primary) hypertension Is this a current diagnosis for this admission?: Yes (6) Leg swelling Is this a current diagnosis for this admission?: Yes (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 Qualifiers: Laterality: unspecified laterality Qualified Code(s): C78.00 - Secondary malignant neoplasm of unspecified lung; C64.9 - Malignant neoplasm of unspecified kidney, except renal pelvis; C64.9 - Malignant neoplasm of unspecified kidney, except renal pelvis; C64.9 - Malignant neoplasm of unspecified kidney, except renal pelvis; C64.9 - Malignant neoplasm of unspecified kidney, except renal pelvis Is this a current diagnosis for this admission?: Yes (8) Pulmonary hypertension Is this a current diagnosis for this admission?: Yes (9) Chronic kidney disease Qualifiers: Chronic kidney disease stage: unspecified stage Qualified Code(s): N18.9 - Chronic kidney disease, unspecified Is this a current diagnosis for this admission?: Yes - Notes Notes: Congestive heart failure: Seems improved medically but chest x-ray is worse, continue torsemide at same dose. Repeat BNP in the morning. Atrial fibrillation: Currently seems rate well controlled. Patient has backup pacemaker. EKG shows ventricular paced rhythm however lot of artifacts that there. Currently not on chronic anticoagulation. Bilateral pleural effusion: Chest x-ray reviewed. Will check BNP level. Continue torsemide. Hypertension: Blood pressure under satisfactory control. Pedal edema: Improved but still some persistent pedal edema. Recommend support stockings. Metastatic malignancy: Patient being treated by oncologist. Pulmonary hypertension: Continue oxygen supplementation. Chronic kidney disease: Patient noted to have worsening kidney functions. - Time Time with patient: Greater than 35 minutes - CODE STATUS : was discussed, patient remains DO NOT RESUSCITATE. Surrogate decision-maker unchanged. Multiple medical problems were addressed. More than 50% of the time spent coordinating care, discussing management plans with involved caregivers. Management plans discussed with involved personnels. Medical decision making was of moderate to high complexity, patient's has multiple comorbidities. Medications reviewed and adjusted accordingly: Yes
--- NOTE | 2017-07-19 13:40 | PDOC PROGRESS REPORT ---
Subjective Progress Note for:: 07/19/17 Subjective:: No overnight events. SOB remains major complaint however stable. PO intake OK. Energy level unchanged. Denies fevers, chills, NV. Reason For Visit: R91.8 OTHER NONSPECIFIC ABNORMAL FINDING OF LUNG F Physical Exam Vital Signs: Temp Pulse Resp BP Pulse Ox 97.8 F 69 21 H 104/43 L 93 07/19/17 04:17 07/19/17 07:48 07/19/17 07:48 07/19/17 04:17 07/19/17 12:12 Pulse Oximeter Continuous Start: 07/01/17 17: 32 Freq: RTQ4 Status: Active Document 07/19/17 12:12 HCR (Rec: 07/19/17 12:12 HCR [email or web address]) Pulse Oximetry Assessment Oxygen Saturation (92-100) 93 Oxygen Flow Rate (L/min) 4 Oxygen Delivery Method Nasal Cannula Equipment Usage Equipment in Use Continuous SpO2 Machine # 14 Intake & Output 07/18/17 07/19/17 07/20/17 06:59 06:59 06:59 Intake Total 1290 1399 Output Total 775 Balance 515 1399 General appearance: PRESENT: other - Chronically ill appearing, pleasant Mouth exam: PRESENT: dry mucosa Respiratory exam: PRESENT: crackles, rhonchi, other - On 4L NC, unchanged from previous GI/Abdominal exam: PRESENT: soft. ABSENT: tenderness Extremities exam: PRESENT: +2 edema Neurological exam: PRESENT: alert, awake, CN II-XII grossly intact Psychiatric exam: PRESENT: depressed Results Laboratory Results: 07/18/17 05:36 07/19/17 04:46 07/19/17 04:46 Sodium 144.8 Potassium 5.0 Chloride 102 Carbon Dioxide 29 Anion Gap 14 BUN 75 H Creatinine 2.68 H Est GFR ( Amer) 28 L Est GFR (Non-Af Amer) 23 L Glucose 99 Calcium 8.2 L 07/02/17 07/02/17 05:09 06:31 NT-Pro-B Natriuret Pep Cancelled 8420 H Impressions: Thoracentesis Ultrasound 07/01/17 00:00 IMPRESSION: SUCCESSFUL THORACENTESIS USING ULTRASOUND GUIDANCE. Guidance Needle Placement CT 07/10/17 00:00 IMPRESSION: SUCCESSFUL CT GUIDED PERCUTANEOUS LUNG BIOPSY OF THE LEFT LOWER LOBE PLEURAL LESION. Lung Biopsy CT 07/10/17 00:00 IMPRESSION: SUCCESSFUL CT GUIDED PERCUTANEOUS LUNG BIOPSY OF THE LEFT LOWER LOBE PLEURAL LESION. Chest CT 07/10/17 08:00 IMPRESSION: SUCCESSFUL CT GUIDED PERCUTANEOUS LUNG BIOPSY OF THE LEFT LOWER LOBE PLEURAL LESION. Chest X-Ray 07/19/17 08:39 IMPRESSION: INCREASED MULTIFOCAL AIRSPACE DISEASE WITH BILATERAL PLEURAL EFFUSIONS. Assessment & Plan - Diagnosis (1) Metastatic renal cell carcinoma to lung Qualifiers: Laterality: unspecified laterality Qualified Code(s): C78.00 - Secondary malignant neoplasm of unspecified lung; C64.9 - Malignant neoplasm of unspecified kidney, except renal pelvis; C64.9 - Malignant neoplasm of unspecified kidney, except renal pelvis; C64.9 - Malignant neoplasm of unspecified kidney, except renal pelvis; C64.9 - Malignant neoplasm of unspecified kidney, except renal pelvis Is this a current diagnosis for this admission?: Yes Plan: Biopsy confirmed ccRCC. Followed by Dr. Sullivan as outpatient - Received C1 Ipi/Nivo on 07/16 while inpatient - Continue to be fatigued and frail appearing, which is likely a combination of his cancer, hospitalization, generalized weakness, and immunotherapy - PFS 3 - Would be very cautious of giving this frail gentleman additional therapy if he does not improve physically - Will need to be placed in rehab following hospitalization (2) WARNER (acute kidney injury) Is this a current diagnosis for this admission?: Yes Plan: Continues to have worsening renal function, Cr 1.44 on 07/12 and currently 2.68 on 07/19. Difficulty fluid Likely multifactorial etiology - Has been getting Torsemide for volume overload - Consider placing CVC to measure CVP. Can discuss with pulmonology. (3) Bilateral pleural effusion Is this a current diagnosis for this admission?: Yes Plan: Secondary to metastatic renal cell cancer. Continue Pleurx. Cautious diuretic use - CXR on 07/19 shows worsening effusion - Pleurex in place and drained 775CC on 07/18 - This may be a sign of disease worsening vs. persistent volume overload state. (4) Chronic respiratory failure Qualifiers: Respiratory failure complication: hypoxia Qualified Code(s): J96.11 - Chronic respiratory failure with hypoxia Is this a current diagnosis for this admission?: Yes - Time Time Spent with patient: Less than 15 minutes Anticipated discharge: Acute Rehab
[2017-07-19] MEDS: PANTOT AC/MIN OIL/PET HY-PHL OINT 50 GM TOP SCH ×2 (14:33→17:54)
[2017-07-19] MEDS: MELATONIN 5 MG TABLET PO SCH (21:56)
[2017-07-19] MEDS: LATANOPROST 0.005% OPH SOLN 2.5 ML OP SCH (21:57)
[2017-07-19] MEDS: TEMAZEPAM 7.5 MG CAPSULE PO SCH (21:57)
[2017-07-20] MEDS: LEVOTHYROXINE SODIUM 0.025 MG TABLET PO SCH (06:06)
[2017-07-20] MEDS: LANSOPRAZOLE 15 MG TAB.RAP.DR PO SCH (06:06)
[2017-07-20] MEDS: IPRATROPIUM/ALBUTEROL 0.5-2.5 MG/3 ML AMPUL NEB SCH ×3 (07:44→20:07)
[2017-07-20] MEDS: ENOXAPARIN SODIUM INJ 30 MG/0.3 ML DISP.SYRIN SUBCUT SCH (09:43)
[2017-07-20] MEDS: FINASTERIDE 5 MG TABLET PO SCH (09:55)
[2017-07-20] MEDS: LACTOBACILLUS ACIDOPHILUS 250 MG TAB PO SCH ×2 (09:55→21:51)
[2017-07-20] MEDS: TORSEMIDE 20 MG TABLET PO SCH (09:55)
[2017-07-20] MEDS: GUAIFENESIN 600 MG TABLET.SA PO SCH ×2 (09:55→21:51)
[2017-07-20] MEDS: PANTOT AC/MIN OIL/PET HY-PHL OINT 50 GM TOP SCH ×2 (09:56→15:46)
[2017-07-20] MEDS: CLOBETASOL PROPIONATE 0.05% CREAM 15 GM TP SCH (09:56)
--- NOTE | 2017-07-20 15:42 | PDOC PROGRESS REPORT ---
Subjective Progress Note for:: 07/20/17 Subjective:: Patient is seen resting in bedside chair. He is sleeping but awakens to his name. He appears tachypneic at rest. His oxygen saturation on 6l/min via n/c is in the high 80s. He denies any chest pain. He denies any cough. He denies any nausea, vomiting or abdominal pain, He denies any pain in his extremities. He has generalized edema. There is no family at the bedside at the present time. Remaining review of systems are negative Reason For Visit: R91.8 OTHER NONSPECIFIC ABNORMAL FINDING OF LUNG F Physical Exam Vital Signs: Temp Pulse Resp BP Pulse Ox 97.6 F 74 21 H 116/47 L 85 L 07/20/17 08:00 07/20/17 08:00 07/20/17 08:00 07/20/17 08:00 07/20/17 08:00 Pulse Oximeter Continuous Start: 07/01/17 17: 32 Freq: RTQ4 Status: Active Document 07/20/17 07:45 TPO (Rec: 07/20/17 07:53 TPO [email or web address]) Pulse Oximetry Assessment Oxygen Saturation (92-100) 85 Oxygen Flow Rate (L/min) 5 Oxygen Delivery Method Nasal Cannula Fraction of Inspired Oxygen (FIO2) 40 Equipment Usage Equipment in Use Continuous SpO2 Machine # 14 Intake & Output 07/19/17 07/20/17 07/21/17 06:59 06:59 06:59 Intake Total 1399 1512 Output Total 550 130 Balance 1399 962 -130 Weight 83.5 kg General appearance: PRESENT: disheveled, mild distress, well-developed, well- nourished Head exam: PRESENT: atraumatic, normocephalic Eye exam: PRESENT: conjunctiva pink, EOMI, PERRLA. ABSENT: scleral icterus Ear exam: PRESENT: normal external ear exam Mouth exam: PRESENT: moist, tongue midline Neck exam: ABSENT: carotid bruit, JVD, lymphadenopathy, thyromegaly Respiratory exam: PRESENT: crackles, decreased breath sounds - crackles on the right lower lung field, decreased on the left, tachypnea Cardiovascular exam: PRESENT: RRR. ABSENT: diastolic murmur, rubs, systolic murmur Pulses: PRESENT: normal dorsalis pedis pul Vascular exam: PRESENT: normal capillary refill GI/Abdominal exam: PRESENT: normal bowel sounds, soft. ABSENT: distended, guarding, mass, organolmegaly, rebound, tenderness Rectal exam: PRESENT: deferred Extremities exam: PRESENT: full ROM, +2 edema. ABSENT: calf tenderness, clubbing, pedal edema Musculoskeletal exam: PRESENT: ambulatory Neurological exam: PRESENT: alert, awake, oriented to person, oriented to place , CN II-XII grossly intact Psychiatric exam: PRESENT: appropriate affect, normal mood. ABSENT: homicidal ideation, suicidal ideation Skin exam: PRESENT: dry, intact, warm. ABSENT: cyanosis, rash Results Laboratory Results: 07/18/17 05:36 07/19/17 04:46 07/02/17 07/02/17 07/20/17 05:09 06:31 05:07 NT-Pro-B Natriuret Pep Cancelled 8420 H 57786 H Impressions: Thoracentesis Ultrasound 07/01/17 00:00 IMPRESSION: SUCCESSFUL THORACENTESIS USING ULTRASOUND GUIDANCE. Guidance Needle Placement CT 07/10/17 00:00 IMPRESSION: SUCCESSFUL CT GUIDED PERCUTANEOUS LUNG BIOPSY OF THE LEFT LOWER LOBE PLEURAL LESION. Lung Biopsy CT 07/10/17 00:00 IMPRESSION: SUCCESSFUL CT GUIDED PERCUTANEOUS LUNG BIOPSY OF THE LEFT LOWER LOBE PLEURAL LESION. Chest CT 07/10/17 08:00 IMPRESSION: SUCCESSFUL CT GUIDED PERCUTANEOUS LUNG BIOPSY OF THE LEFT LOWER LOBE PLEURAL LESION. Chest X-Ray 07/19/17 08:39 IMPRESSION: INCREASED MULTIFOCAL AIRSPACE DISEASE WITH BILATERAL PLEURAL EFFUSIONS. Assessment & Plan - Diagnosis (1) Metastatic renal cell carcinoma to lung Qualifiers: Laterality: unspecified laterality Qualified Code(s): C78.00 - Secondary malignant neoplasm of unspecified lung; C64.9 - Malignant neoplasm of unspecified kidney, except renal pelvis; C64.9 - Malignant neoplasm of unspecified kidney, except renal pelvis; C64.9 - Malignant neoplasm of unspecified kidney, except renal pelvis; C64.9 - Malignant neoplasm of unspecified kidney, except renal pelvis Is this a current diagnosis for this admission?: Yes Plan: Chest xray . Worsening. Case discussed with Dr Sullivan. She states he received immunomodulating therapy on 07/17 and often patients get worse before they get better. (2) WARNER (acute kidney injury) Is this a current diagnosis for this admission?: Yes Plan: Slightly worse. He has been getting diuretic therapy. He remains with significant peripheral edema. Cardiology is following (3) Atrial fibrillation Qualifiers: Atrial fibrillation type: unspecified Qualified Code(s): I48.91 - Unspecified atrial fibrillation Is this a current diagnosis for this admission?: Yes Plan: Paroxymal, rate controlled (4) BPH (benign prostatic hyperplasia) Is this a current diagnosis for this admission?: Yes Plan: PRESLEY HINES is a 81 year old male patient from [place] came to [place] to visit his son, brought by EMS from [facility] for shortness of breath and chest pain. Patient was in his usual baseline state of health when he woke up with dyspnea and chest pain described as pressure-like and nonradiating. The paramedics found him in respiratory distress with O2 saturation in the lower 80s. Reportedly his chest pain subsided after Nitropaste. 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 He has also history of peripheral arterial disease and heavy smoking. Patient endorses an episode of nausea and vomiting. No chills, fever, cough, palpitation, diaphoresis, abdominal pain, diarrhea or urinary complaints. No dizziness, headache, change in his visual status or seizure activity. No orthopnea or PND. (5) Bilateral pleural effusion Is this a current diagnosis for this admission?: Yes Plan: pleurx in left chest only draining 150-200 cc /day (6) Chronic respiratory failure Qualifiers: Respiratory failure complication: hypoxia Qualified Code(s): J96.11 - Chronic respiratory failure with hypoxia Is this a current diagnosis for this admission?: Yes (7) Hypertension Qualifiers: Hypertension type: essential hypertension Qualified Code(s): I10 - Essential (primary) hypertension Is this a current diagnosis for this admission?: Yes Plan: He is normotensive (8) Leg swelling Is this a current diagnosis for this admission?: Yes Plan: Worsening likely due to low albumin levels - Time Time Spent with patient: 25-34 minutes Medications reviewed and adjusted accordingly: Yes
--- NOTE | 2017-07-20 20:22 | PDOC PROGRESS REPORT ---
Subjective Progress Note for:: 07/20/17 Subjective:: Patient's respiration and breathing is worse today. Chest x-ray reviewed shows worsening infiltrates and effusion. Remains on oxygen. Still has leg edema, which is about the same. Patient has a Pleurx catheter on the left side which is to be drained today. Reason For Visit: R91.8 OTHER NONSPECIFIC ABNORMAL FINDING OF LUNG F Physical Exam Vital Signs: Temp Pulse Resp BP Pulse Ox 97.9 F 70 24 H 104/48 L 88 L 07/20/17 15:55 07/20/17 19:00 07/20/17 15:55 07/20/17 15:55 07/20/17 16:32 Pulse Oximeter Continuous Start: 07/01/17 17: 32 Freq: RTQ4 Status: Complete Document 07/20/17 11:39 TPO (Rec: 07/20/17 11:39 TPO [email or web address]) Pulse Oximetry Assessment Oxygen Saturation (92-100) 87 Oxygen Flow Rate (L/min) 6 Oxygen Delivery Method Nasal Cannula Equipment Usage Equipment Discontinued Continuous SpO2 Machine # 14 Intake & Output 07/19/17 07/20/17 07/21/17 06:59 06:59 06:59 Intake Total 1399 1512 1050 Output Total 550 130 Balance 1399 962 920 Weight 83.5 kg Results Laboratory Results: 07/18/17 05:36 07/19/17 04:46 07/02/17 07/02/17 07/20/17 05:09 06:31 05:07 NT-Pro-B Natriuret Pep Cancelled 8420 H 13175 H Impressions: Thoracentesis Ultrasound 07/01/17 00:00 IMPRESSION: SUCCESSFUL THORACENTESIS USING ULTRASOUND GUIDANCE. Guidance Needle Placement CT 07/10/17 00:00 IMPRESSION: SUCCESSFUL CT GUIDED PERCUTANEOUS LUNG BIOPSY OF THE LEFT LOWER LOBE PLEURAL LESION. Lung Biopsy CT 07/10/17 00:00 IMPRESSION: SUCCESSFUL CT GUIDED PERCUTANEOUS LUNG BIOPSY OF THE LEFT LOWER LOBE PLEURAL LESION. Chest CT 07/10/17 08:00 IMPRESSION: SUCCESSFUL CT GUIDED PERCUTANEOUS LUNG BIOPSY OF THE LEFT LOWER LOBE PLEURAL LESION. Chest X-Ray 07/19/17 08:39 IMPRESSION: INCREASED MULTIFOCAL AIRSPACE DISEASE WITH BILATERAL PLEURAL EFFUSIONS. Assessment & Plan - Diagnosis (1) Congestive heart failure (CHF) Qualifiers: Heart failure type: diastolic Heart failure chronicity: chronic Qualified Code(s): I50.32 - Chronic diastolic (congestive) heart failure Is this a current diagnosis for this admission?: Yes (2) Atrial fibrillation Qualifiers: Atrial fibrillation type: unspecified Qualified Code(s): I48.91 - Unspecified atrial fibrillation Is this a current diagnosis for this admission?: Yes (3) Bilateral pleural effusion Is this a current diagnosis for this admission?: Yes (4) Chronic respiratory failure Qualifiers: Respiratory failure complication: hypoxia Qualified Code(s): J96.11 - Chronic respiratory failure with hypoxia Is this a current diagnosis for this admission?: Yes (5) Hypertension Qualifiers: Hypertension type: essential hypertension Qualified Code(s): I10 - Essential (primary) hypertension Is this a current diagnosis for this admission?: Yes (6) Leg swelling Is this a current diagnosis for this admission?: Yes (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 Qualifiers: Laterality: unspecified laterality Qualified Code(s): C78.00 - Secondary malignant neoplasm of unspecified lung; C64.9 - Malignant neoplasm of unspecified kidney, except renal pelvis; C64.9 - Malignant neoplasm of unspecified kidney, except renal pelvis; C64.9 - Malignant neoplasm of unspecified kidney, except renal pelvis; C64.9 - Malignant neoplasm of unspecified kidney, except renal pelvis Is this a current diagnosis for this admission?: Yes (8) Pulmonary hypertension Is this a current diagnosis for this admission?: Yes (9) Chronic kidney disease Qualifiers: Chronic kidney disease stage: unspecified stage Qualified Code(s): N18.9 - Chronic kidney disease, unspecified Is this a current diagnosis for this admission?: Yes - Notes Notes: Have increased torsemide to 20 mg a day. Follow renal functions. Believe overall prognosis is poor due to progressive CHF and lung disease. May consider pulmonary evaluation.
[2017-07-20] MEDS: MELATONIN 5 MG TABLET PO SCH (21:51)
[2017-07-20] MEDS: LATANOPROST 0.005% OPH SOLN 2.5 ML OP SCH (21:51)
[2017-07-20] MEDS: TEMAZEPAM 7.5 MG CAPSULE PO SCH (21:51)
--- NOTE | 2017-07-20 21:52 | Palliative Consultation Report ---
Consultation From:: KELLY HAYWOOD Consult Reason: palliative care - HPI Chief Complaint: shortness of breath, weakness HPI: Palliative Care Consult Visit 07/20/17 3:05- 3:40 PM Appreciate palliative care referral for this 86 year old gentleman who was admitted on 07/01 with dyspnea and generalized weakness. 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 He has needed thoracentesis to remove the fluid in his pleural effusion and now has pleurex drain which was drained today. Comorbid conditions described in his chart are CHF and Atrial fib with pacemaker implanted. His current code status is DNR after being full code for most of this admission. Patient was sitting up in chair when I visted with no family present. He was very short of breath and did not appear comfortable. He said he felt very tired, but allowed me to talk with him for a while. He says he had pneumonia and he wishes he had known it earlier so he could have treated it earlier. He tells me he is having a difficult time getting over it. I mentioned his cancer problems and he changed the subject quickly. He said the pneumonia is being treated and soon he should feel better. He denies pain and says he is eating very well. He denies problem sleeping. His description of his current condition did not match the objective picture I was seeing as he looks very frail, pale and weak in addition to the shortness of breath. Onset: Just prior to arrival Onset/Duration: Gradual Quality of Pain: No pain Pain Level: Denies Associated Symptoms: Productive cough, Shortness of breath, Weakness Exacerbated by: Movement Past Medical History(Consults) - General Information Source: Patient, [facility] Records Home Medications: Amlodipine Besylate [Norvasc 10 mg Tablet] 10 mg PO DAILY 07/01/17 Clobetasol Propionate [Temovate 0.05% Cream 15 Gm] 1 applic TP DAILY 07/01/17 Finasteride 5 mg PO DAILY 07/01/17 Iron Ps Complex/B12/Folic Acid [Ferrex 150 Forte Capsule] 1 cap PO DAILY Latanoprost [Xalatan 0.005% Oph Soln 2.5 ml] 1 drop OU QHS 07/01/17 Levothyroxine Sodium [Tirosint] 25 mcg PO DAILY 07/01/17 Metoprolol Succinate [Toprol Xl 25 mg Tab.sr] 25 mg PO DAILY 07/01/17 Rivaroxaban [Xarelto 15 mg Tablet] 15 mg PO DAILY 07/01/17 Sorafenib Tosylate [Nexavar] 400 mg PO Q12 07/01/17 Vit A/Vit C/Vit E/Zinc/Copper [Preservision Areds Tablet] 1 each PO DAILY Allergies/Adverse Reactions: No Known Allergies Allergy (Verified 07/01/17 09:20) - Social History Lives with: Spouse/Significant other Family History: Reviewed & Not Pertinent, Hypertension Parental Family History Reviewed: No Children Family History Reviewed: No Sibling(s) Family History Reviewed.: No Smoking Status: Former Smoker Frequency of Alcohol Use: None Hx Recreational Drug Use: No Drugs: None Hx Prescription Drug Abuse: No - Past Medical History Cardiac Medical History: Reports: Hx Atrial Fibrillation, Hx Hypertension Denies: Hx Coronary Artery Disease, Hx Heart Attack Pulmonary Medical History: Reports: Hx Pneumonia Denies: Hx Asthma, Hx Bronchitis, Hx COPD Neurological Medical History: Denies: Hx Cerebrovascular Accident, Hx Seizures Endocrine Medical History: Reports: Hx Hypothyroidism Malignancy Medical History: Reports Hx Renal (Kidney) Cancer Musculoskeltal Medical History: Reports Hx Arthritis - "a little bit" Hematology: Reports: Anemia - Currently on Iron - Surgical History Past Surgical History: Reports: Hx Kidney (Renal Surgery) - 11/28, Hx Pacemaker, Other - Skin lesion from back removed Review of systems Constitutional: Chills, Weakness, Recent illness EENT: No symptoms reported Cardiovascular: Orthopnea, Dyspnea Respiratory: Cough, Short of breath Gastrointestinal: No symptoms reported Geniturinary: No symptoms reported Male Genitourinary: No symptoms reported Musculoskeltal: Muscle stiffness Hematologic/Lymphatic: Anemia Ojective:Exam Vital Signs: Temp Pulse Resp BP Pulse Ox 97.4 F 61 24 H 106/39 L 90 L 07/20/17 20:12 07/20/17 20:12 07/20/17 20:12 07/20/17 20:12 07/20/17 20:12 Pulse Oximeter Continuous Start: 07/01/17 17: 32 Freq: RTQ4 Status: Complete Document 07/20/17 11:39 TPO (Rec: 07/20/17 11:39 TPO [email or web address]) Pulse Oximetry Assessment Oxygen Saturation (92-100) 87 Oxygen Flow Rate (L/min) 6 Oxygen Delivery Method Nasal Cannula Equipment Usage Equipment Discontinued Continuous SpO2 Machine # 14 Intake & Output 07/19/17 07/20/17 07/21/17 06:59 06:59 06:59 Intake Total 1399 1512 1050 Output Total 550 130 Balance 1399 962 920 Weight 83.5 kg - General General Appearance: Anxious In distress: Moderate Note:: Alert and oriented, anxious ....dyspnea with oxygen in place. Denies pain. pale and weak. - HEENT Head: Normocephalic Eyes: Pale conjunctiva Conjunctiva: Normal Pupils: PERRLA Mucous membrane: Moist - Neck Neck: Normal, Supple - Respiratory Respiratory Status: Labored Breath sounds: Rhonchi - Extremities Upper extremity: Normal inspection Lower extremities: Edema - Psychological Associated symptoms: Anxious Objective-Diagnostic Laboratory: 07/18/17 05:36 07/19/17 04:46 07/02/17 07/02/17 07/20/17 05:09 06:31 05:07 NT-Pro-B Natriuret Pep Cancelled 8420 H 00789 H Plan and Recommendation Plan and Recommendation: Mr. Wilson does not seem to really grasp the extent of his cancer problem as he is still saying the pneumonia is hat is bothering him and he wishes he had started treating the pneumonia sooner. He talked about having renal cancer but did not correlate it with his lung mets or breathing difficulties. I told him I was with Palliative care which was "before hospice" and he said having visits at home would be good. He lives with his and no other help "yet". He said his is not in good health. We did not discuss SNF for rehab. He was feeling so tired and said he was sleepy so I did not push the conversation for much in the future. I suspect he will be appropriate for hospice but did not want to discuss that with him until Dr. Sullivan has an opportunity to discuss future treatments with him. WIll be glad to follow and I appreciate opportunity to participate in care. - Time Spent with Patient Time spent with patient: 15 to 30 Minutes Time: 35 min total
[2017-07-21 05:15] LABS: HEMATOCRIT 26.8 % (37.9-51.0); HEMOGLOBIN 8.4 g/dL (13.5-17.0); MEAN CORPUSCULAR HEMOGLOBIN 27.3 pg (27.0-33.4); MEAN CORPUSCULAR HGB CONC 31.3 g/dL (32.0-36.0); MEAN CORPUSCULAR VOLUME 87 fl (80-97); PLATELET COUNT 294 10^3/uL (150-450); RED BLOOD COUNT 3.07 10^6/uL (4.35-5.55); RED CELL DISTRIBUTION WIDTH 17.8 % (11.5-14.0); WHITE BLOOD COUNT 8.6 10^3/uL (4.0-10.5)
[2017-07-21 05:28] LABS: ANION GAP 9 (5-19); BLOOD UREA NITROGEN 85 mg/dL (7-20); CALCIUM 8.5 mg/dL (8.4-10.2); CARBON DIOXIDE 33 mmol/L (22-30); CHLORIDE 102 mmol/L (98-107); GLUCOSE 117 mg/dL (75-110); POTASSIUM 5.6 mmol/L (3.6-5.0); SODIUM 144.3 mmol/L (137-145)
[2017-07-21 05:43] LABS: ABSOLUTE LYMPHOCYTES# (MANUAL) 0.2 10^3/uL (0.5-4.7); ABSOLUTE MONOCYTES # (MANUAL) 0.2 10^3/uL (0.1-1.4); ABSOLUTE NEUTROPHILS# (MANUAL) 8.2 10^3/uL (1.7-8.2); BASOPHILS % (MANUAL) 0 % (0-2); EOSINOPHILS % (MANUAL) 1 % (0-6); LYMPHOCYTES % (MANUAL) 2 % (13-45); MONOCYTES % (MANUAL) 2 % (3-13); SEGMENTED NEUTROPHILS % (MAN) 95 % (42-78); TOTAL CELLS COUNTED 100
[2017-07-21 05:44] LABS: ANISOCYTOSIS 1+; HYPOCHROMASIA 1+; OVALOCYTES SLIGHT; PLATELET COMMENT ADEQUATE; POIKILOCYTOSIS 1+; TARGET CELLS 1+
[2017-07-21] MEDS: LANSOPRAZOLE 15 MG TAB.RAP.DR PO SCH (06:24)
[2017-07-21] MEDS: LEVOTHYROXINE SODIUM 0.025 MG TABLET PO SCH (06:24)
[2017-07-21] MEDS: IPRATROPIUM/ALBUTEROL 0.5-2.5 MG/3 ML AMPUL NEB SCH ×3 (07:49→19:58)
[2017-07-21] MEDS ORDERED: TORSEMIDE 20 MG TABLET PO SCH (10:00)
[2017-07-21] MEDS: TORSEMIDE 20 MG TABLET PO SCH (11:32)
[2017-07-21] MEDS: LACTOBACILLUS ACIDOPHILUS 250 MG TAB PO SCH (11:32)
[2017-07-21] MEDS: GUAIFENESIN 600 MG TABLET.SA PO SCH (11:32)
[2017-07-21] MEDS: FINASTERIDE 5 MG TABLET PO SCH (11:32)
[2017-07-21] MEDS: ENOXAPARIN SODIUM INJ 30 MG/0.3 ML DISP.SYRIN SUBCUT SCH (11:32)
[2017-07-21] MEDS: CLOBETASOL PROPIONATE 0.05% CREAM 15 GM TP SCH (11:42)
[2017-07-21] MEDS: PANTOT AC/MIN OIL/PET HY-PHL OINT 50 GM TOP SCH ×2 (11:42→17:49)
[2017-07-21] MEDS ORDERED: MORPHINE SULFATE 10 MG/ML INJ IV PRN (11:51)
[2017-07-21] MEDS ORDERED: LORAZEPAM INJ 2 MG/1 ML VIAL IV PRN (11:51)
[2017-07-21] MEDS ORDERED: ATROPINE SULFATE 1% OPH SOLN 5 ML BOTTLE SL PRN (11:52)
[2017-07-21] MEDS ORDERED: GLYCOPYRROLATE INJ 0.4 MG/2 ML VIAL IV PRN (11:53)
--- NOTE | 2017-07-21 14:25 | PDOC PROGRESS REPORT ---
Subjective Progress Note for:: 07/21/17 Subjective:: Patient is seen in the bedside chair. He is presently obtunded, he does not awaken to verbal or tactile stimuli. His respirations are shallow and irregular. Nursing reports she became unresponsive during the night. Oxygen saturations are in the low 90s. Telemetry shows paced rhythm. Presently is no family at the bedside. Reason For Visit: R91.8 OTHER NONSPECIFIC ABNORMAL FINDING OF LUNG F Physical Exam Vital Signs: Temp Pulse Resp BP Pulse Ox 97.6 F 59 L 17 84/35 L 100 07/21/17 03:56 07/21/17 11:23 07/21/17 11:23 07/21/17 11:23 07/21/17 11:23 Pulse Oximeter Continuous Start: 07/01/17 17: 32 Freq: RTQ4 Status: Complete Document 07/20/17 11:39 TPO (Rec: 07/20/17 11:39 TPO [email or web address]) Pulse Oximetry Assessment Oxygen Saturation (92-100) 87 Oxygen Flow Rate (L/min) 6 Oxygen Delivery Method Nasal Cannula Equipment Usage Equipment Discontinued Continuous SpO2 Machine # 14 Intake & Output 07/20/17 07/21/17 07/22/17 06:59 06:59 06:59 Intake Total 1512 1362 Output Total 550 130 Balance 962 1232 Weight 83.5 kg 83.2 kg General appearance: PRESENT: mild distress, well-developed, well-nourished, other - presently obtunded Head exam: PRESENT: atraumatic Eye exam: PRESENT: conjunctiva pink, EOMI, PERRLA. ABSENT: scleral icterus Ear exam: PRESENT: normal external ear exam Mouth exam: PRESENT: moist, tongue midline Neck exam: ABSENT: carotid bruit, JVD, lymphadenopathy, thyromegaly Respiratory exam: PRESENT: crackles, decreased breath sounds. ABSENT: rales, rhonchi, wheezes Cardiovascular exam: PRESENT: RRR. ABSENT: diastolic murmur, rubs, systolic murmur Pulses: PRESENT: normal dorsalis pedis pul Vascular exam: PRESENT: normal capillary refill GI/Abdominal exam: PRESENT: normal bowel sounds, soft. ABSENT: distended, guarding, mass, organolmegaly, rebound, tenderness Rectal exam: PRESENT: deferred Extremities exam: PRESENT: +2 edema - all extremities have + 2 edema. ABSENT: calf tenderness, clubbing, pedal edema Neurological exam: PRESENT: altered, CN II-XII grossly intact - Presently obtunded. Nursing reports he has been unresponsive since last evening., other Psychiatric exam: PRESENT: other Focused psych exam: PRESENT: other Skin exam: PRESENT: warm Results Laboratory Results: 07/21/17 04:12 07/21/17 04:12 07/21/17 07/21/17 04:12 04:12 WBC 8.6 RBC 3.07 L Hgb 8.4 L Hct 26.8 L MCV 87 MCH 27.3 MCHC 31.3 L RDW 17.8 H Plt Count 294 Seg Neutrophils % Not Reportable Lymphocytes % Not Reportable Monocytes % Not Reportable Eosinophils % Not Reportable Basophils % Not Reportable Absolute Neutrophils Not Reportable Absolute Lymphocytes Not Reportable Absolute Monocytes Not Reportable Absolute Eosinophils Not Reportable Absolute Basophils Not Reportable Sodium 144.3 Potassium 5.6 H Chloride 102 Carbon Dioxide 33 H Anion Gap 9 BUN 85 H Creatinine 3.12 H Est GFR ( Amer) 23 L Est GFR (Non-Af Amer) 19 L Glucose 117 H Calcium 8.5 07/02/17 07/02/17 07/20/17 05:09 06:31 05:07 NT-Pro-B Natriuret Pep Cancelled 8420 H 13687 H Impressions: Thoracentesis Ultrasound 07/01/17 00:00 IMPRESSION: SUCCESSFUL THORACENTESIS USING ULTRASOUND GUIDANCE. Guidance Needle Placement CT 07/10/17 00:00 IMPRESSION: SUCCESSFUL CT GUIDED PERCUTANEOUS LUNG BIOPSY OF THE LEFT LOWER LOBE PLEURAL LESION. Lung Biopsy CT 07/10/17 00:00 IMPRESSION: SUCCESSFUL CT GUIDED PERCUTANEOUS LUNG BIOPSY OF THE LEFT LOWER LOBE PLEURAL LESION. Chest CT 07/10/17 08:00 IMPRESSION: SUCCESSFUL CT GUIDED PERCUTANEOUS LUNG BIOPSY OF THE LEFT LOWER LOBE PLEURAL LESION. Chest X-Ray 07/19/17 08:39 IMPRESSION: INCREASED MULTIFOCAL AIRSPACE DISEASE WITH BILATERAL PLEURAL EFFUSIONS. Assessment & Plan - Diagnosis (1) Metastatic renal cell carcinoma to lung Qualifiers: Laterality: unspecified laterality Qualified Code(s): C78.00 - Secondary malignant neoplasm of unspecified lung; C64.9 - Malignant neoplasm of unspecified kidney, except renal pelvis; C64.9 - Malignant neoplasm of unspecified kidney, except renal pelvis; C64.9 - Malignant neoplasm of unspecified kidney, except renal pelvis; C64.9 - Malignant neoplasm of unspecified kidney, except renal pelvis Is this a current diagnosis for this admission?: Yes Plan: Patient this morning is unresponsive. His was notified. She is now at the bedside. We discussed his overall declining status. She states she is aware of her prognosis. She wishes at this time to just keep him comfortable. She does not wish any heroic interventions. She would like to proceed with comfort measures only. Palliative care is notified by case management (2) WARNER (acute kidney injury) Is this a current diagnosis for this admission?: Yes Plan: Worsening with increasing diuretics. He has not responded well to diuretics either. (3) Atrial fibrillation Qualifiers: Atrial fibrillation type: unspecified Qualified Code(s): I48.91 - Unspecified atrial fibrillation Is this a current diagnosis for this admission?: Yes Plan: Paroxymal, rate controlled (4) BPH (benign prostatic hyperplasia) Is this a current diagnosis for this admission?: Yes Plan: PRESLEY HINES is a 81 year old male patient from [place] came to [place] to visit his son, brought by EMS from [facility] for shortness of breath and chest pain. Patient was in his usual baseline state of health when he woke up with dyspnea and chest pain described as pressure-like and nonradiating. The paramedics found him in respiratory distress with O2 saturation in the lower 80s. Reportedly his chest pain subsided after Nitropaste. Of note patient had [place] in 2013 and he had 4 stent placement. He has also history of peripheral arterial disease and heavy smoking. Patient endorses an episode of nausea and vomiting. No chills, fever, cough, palpitation, diaphoresis, abdominal pain, diarrhea or urinary complaints. No dizziness, headache, change in his visual status or seizure activity. No orthopnea or PND. (5) Bilateral pleural effusion Is this a current diagnosis for this admission?: Yes (6) Chronic respiratory failure Qualifiers: Respiratory failure complication: hypoxia Qualified Code(s): J96.11 - Chronic respiratory failure with hypoxia Is this a current diagnosis for this admission?: Yes (7) Hypertension Qualifiers: Hypertension type: essential hypertension Qualified Code(s): I10 - Essential (primary) hypertension Is this a current diagnosis for this admission?: Yes (8) Leg swelling Is this a current diagnosis for this admission?: Yes - Time Time Spent with patient: 25-34 minutes Total Critical Time (Minutes): 20 Medications reviewed and adjusted accordingly: Yes Anticipated discharge: Hospice
--- NOTE | 2017-07-21 19:21 | PDOC PROGRESS REPORT ---
Subjective Progress Note for:: 07/21/17 Subjective:: Patient was noted to be obtunded with decreased responsiveness. Patient noted to be tachypneic. Patient's respiration and breathing is worse today. Chest x-ray reviewed shows worsening infiltrates and effusion. Remains on oxygen. Still has leg edema, which is about the same. Reason For Visit: R91.8 OTHER NONSPECIFIC ABNORMAL FINDING OF LUNG F Physical Exam Vital Signs: Temp Pulse Resp BP Pulse Ox 97.6 F 103 H 196 H 84/35 L 100 07/21/17 03:56 07/21/17 14:00 07/21/17 13:24 07/21/17 11:23 07/21/17 11:23 Pulse Oximeter Continuous Start: 07/01/17 17: 32 Freq: RTQ4 Status: Complete Document 07/20/17 11:39 TPO (Rec: 07/20/17 11:39 TPO [email or web address]) Pulse Oximetry Assessment Oxygen Saturation (92-100) 87 Oxygen Flow Rate (L/min) 6 Oxygen Delivery Method Nasal Cannula Equipment Usage Equipment Discontinued Continuous SpO2 Machine # 14 Intake & Output 07/20/17 07/21/17 07/22/17 06:59 06:59 06:59 Intake Total 1512 1362 316 Output Total 550 130 Balance 962 1232 316 Weight 83.5 kg 83.2 kg Exam: GENERAL: well-nourished and in no acute distress. Patient is noted to be very lethargic and somewhat attended therefore orientation was not checked. HEAD: Atraumatic, normocephalic. EYES: Pupils equal round and reactive to light, extraocular movements intact, sclera anicteric, conjunctiva are normal. ENT: TMs normal, nares patent, oropharynx clear without exudates. Moist mucous membranes. No oral ulcerations or bleeding gums noted NECK: supple without lymphadenopathy or JVD. Trachea is central. No cervical or axillary lymphadenopathy noted. Carotids are 2+ LUNGS: Breath sounds bibasilar fine crackles at bases. Bibasilar dullness noted. CHEST: Palpation of chest wall shows no significant chest wall tenderness. HEART: [place] [employer], No PSH, 2/6 LICHA aortic area, 1/6 mittal systolic murmur mitral area, rubs or gallops. ABDOMEN: Soft, no significant tenderness appreciated, normoactive bowel sounds. No guarding, no rebound. No rigidity noted . No masses appreciated. EXTREMITIES: Pedal pulses are 1-2+, no calf tenderness noted, Trace + pedal edema noted. No clubbing or cyanosis. NEUROLOGICAL: Patient is alert but is not able to participate in neurological exam because of patient's current mental status PSYCH: Patient cannot participate in a neurologic and psych exam because of the patient's current mental status SKIN: No significant ecchymosis, rash, ulcerations or signs of pruritus noted. MUSCULOSKELETAL EXAM: No significant joint swelling noted. Results Laboratory Results: 07/21/17 04:12 07/21/17 04:12 07/21/17 07/21/17 04:12 04:12 WBC 8.6 RBC 3.07 L Hgb 8.4 L Hct 26.8 L MCV 87 MCH 27.3 MCHC 31.3 L RDW 17.8 H Plt Count 294 Seg Neutrophils % Not Reportable Lymphocytes % Not Reportable Monocytes % Not Reportable Eosinophils % Not Reportable Basophils % Not Reportable Absolute Neutrophils Not Reportable Absolute Lymphocytes Not Reportable Absolute Monocytes Not Reportable Absolute Eosinophils Not Reportable Absolute Basophils Not Reportable Sodium 144.3 Potassium 5.6 H Chloride 102 Carbon Dioxide 33 H Anion Gap 9 BUN 85 H Creatinine 3.12 H Est GFR ( Amer) 23 L Est GFR (Non-Af Amer) 19 L Glucose 117 H Calcium 8.5 07/02/17 07/02/17 07/20/17 05:09 06:31 05:07 NT-Pro-B Natriuret Pep Cancelled 8420 H 63902 H EKG Comments: Ventricular paced rhythm. Impressions: Thoracentesis Ultrasound 07/01/17 00:00 IMPRESSION: SUCCESSFUL THORACENTESIS USING ULTRASOUND GUIDANCE. Guidance Needle Placement CT 07/10/17 00:00 IMPRESSION: SUCCESSFUL CT GUIDED PERCUTANEOUS LUNG BIOPSY OF THE LEFT LOWER LOBE PLEURAL LESION. Lung Biopsy CT 07/10/17 00:00 IMPRESSION: SUCCESSFUL CT GUIDED PERCUTANEOUS LUNG BIOPSY OF THE LEFT LOWER LOBE PLEURAL LESION. Chest CT 07/10/17 08:00 IMPRESSION: SUCCESSFUL CT GUIDED PERCUTANEOUS LUNG BIOPSY OF THE LEFT LOWER LOBE PLEURAL LESION. Chest X-Ray 07/19/17 08:39 IMPRESSION: INCREASED MULTIFOCAL AIRSPACE DISEASE WITH BILATERAL PLEURAL EFFUSIONS. Assessment & Plan - Diagnosis (1) Congestive heart failure (CHF) Qualifiers: Heart failure type: diastolic Heart failure chronicity: chronic Qualified Code(s): I50.32 - Chronic diastolic (congestive) heart failure Is this a current diagnosis for this admission?: Yes (2) Atrial fibrillation Qualifiers: Atrial fibrillation type: unspecified Qualified Code(s): I48.91 - Unspecified atrial fibrillation Is this a current diagnosis for this admission?: Yes (3) Bilateral pleural effusion Is this a current diagnosis for this admission?: Yes (4) Chronic respiratory failure Qualifiers: Respiratory failure complication: hypoxia Qualified Code(s): J96.11 - Chronic respiratory failure with hypoxia Is this a current diagnosis for this admission?: Yes (5) Hypertension Qualifiers: Hypertension type: essential hypertension Qualified Code(s): I10 - Essential (primary) hypertension Is this a current diagnosis for this admission?: Yes (6) Leg swelling Is this a current diagnosis for this admission?: Yes (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 Qualifiers: Laterality: unspecified laterality Qualified Code(s): C78.00 - Secondary malignant neoplasm of unspecified lung; C64.9 - Malignant neoplasm of unspecified kidney, except renal pelvis; C64.9 - Malignant neoplasm of unspecified kidney, except renal pelvis; C64.9 - Malignant neoplasm of unspecified kidney, except renal pelvis; C64.9 - Malignant neoplasm of unspecified kidney, except renal pelvis Is this a current diagnosis for this admission?: Yes (8) Pulmonary hypertension Is this a current diagnosis for this admission?: Yes (9) Chronic kidney disease Qualifiers: Chronic kidney disease stage: unspecified stage Qualified Code(s): N18.9 - Chronic kidney disease, unspecified Is this a current diagnosis for this admission?: Yes - Notes Notes: Patient noted to be significantly worse. Did increase torsemide to 20 mg a day. Patient is now noted to have worsening renal functions. Chest x-ray was noted to be worse, which was obtained on the sixth. At this point feel that the prognosis is worse. May consider seeking additional help from sales development manager, board runner and oncologist. - Time Time with patient: 15-25 minutes - Will order a portable chest x-ray for tomorrow. Medications reviewed and adjusted accordingly: Yes
[2017-07-21 21:11] VITALS: BP 99/45
[2017-07-22] MEDS: IPRATROPIUM/ALBUTEROL 0.5-2.5 MG/3 ML AMPUL NEB SCH ×2 (08:02→16:12)
[2017-07-22] MEDS: CLOBETASOL PROPIONATE 0.05% CREAM 15 GM TP SCH (10:24)
[2017-07-22] MEDS: PANTOT AC/MIN OIL/PET HY-PHL OINT 50 GM TOP SCH (10:24)
[2017-07-22] MEDS: TORSEMIDE 20 MG TABLET PO SCH (10:30)
--- NOTE | 2017-07-22 17:08 | Death Summary ---
Summary Date : 07/22/17 Time of :: 11:38 Autopsy: No Resuscitation Status: Comfort Measures Only - Final Diagnosis (1) Metastatic renal cell carcinoma to lung Is this a current diagnosis for this admission?: Yes (2) Recurrent left pleural effusion Is this a current diagnosis for this admission?: Yes (3) Atrial fibrillation Is this a current diagnosis for this admission?: Yes (4) Congestive heart failure (CHF) Is this a current diagnosis for this admission?: Yes Hospital Course:: He originally came in for a CT-guided lung biopsy for hypermetabolic masses along the pleural surface discovered on PET scan and was found to have a large left pleural effusion with oxygen saturations in the 70s. A thoracentesis was done and they took off 1400 cc with improvement in his saturations to 91-93% on 3 L. Surgery put in a chest tube which was discontinued on the . Fluid reaccumulated so a Pleurx was inserted on the . A CT guided lung biopsy was accomplished on the and the findings were consistent with metastatic renal cell carcinoma, clear cell type. He continued to dwindle. He had previously been a DNR. He was seen in consultation by palliative care and he declined to discuss hospice. Nevertheless he continued to weaken, over the last couple days he has been minimally arousable, mumbling, progressively more short of breath, and today .
--- NOTE | 2017-07-22 20:03 | PDOC PROGRESS REPORT ---
Subjective Progress Note for:: 07/22/17 Subjective:: Patient seen on morning rounds. This was around 9 AM today. Patient was noted to be obtunded with decreased responsiveness. Patient noted to be tachypneic. Patient's respiration and breathing is worse today. Chest x-ray previous ones reviewed shows worsening infiltrates and effusion. Remains on oxygen. Still has leg edema, which is about the same. Reason For Visit: R91.8 OTHER NONSPECIFIC ABNORMAL FINDING OF LUNG F Physical Exam Vital Signs: Temp Pulse Resp BP Pulse Ox 97.6 F 66 20 99/45 L 90 L 07/21/17 03:56 07/22/17 08:01 07/22/17 08:01 07/21/17 20:00 07/22/17 08:01 Pulse Oximeter Continuous Start: 07/01/17 17: 32 Freq: RTQ4 Status: Complete Document 07/20/17 11:39 TPO (Rec: 07/20/17 11:39 TPO [email or web address]) Pulse Oximetry Assessment Oxygen Saturation (92-100) 87 Oxygen Flow Rate (L/min) 6 Oxygen Delivery Method Nasal Cannula Equipment Usage Equipment Discontinued Continuous SpO2 Machine # 14 Intake & Output 07/21/17 07/22/17 07/23/17 06:59 06:59 06:59 Intake Total 1362 321 Output Total 130 Balance 1232 321 Weight 83.2 kg Exam: Relatively unchanged from yesterday. Results Laboratory Results: 07/21/17 04:12 07/21/17 04:12 07/02/17 07/02/17 07/20/17 05:09 06:31 05:07 NT-Pro-B Natriuret Pep Cancelled 8420 H 66430 H Impressions: Thoracentesis Ultrasound 07/01/17 00:00 IMPRESSION: SUCCESSFUL THORACENTESIS USING ULTRASOUND GUIDANCE. Guidance Needle Placement CT 07/10/17 00:00 IMPRESSION: SUCCESSFUL CT GUIDED PERCUTANEOUS LUNG BIOPSY OF THE LEFT LOWER LOBE PLEURAL LESION. Lung Biopsy CT 07/10/17 00:00 IMPRESSION: SUCCESSFUL CT GUIDED PERCUTANEOUS LUNG BIOPSY OF THE LEFT LOWER LOBE PLEURAL LESION. Chest CT 07/10/17 08:00 IMPRESSION: SUCCESSFUL CT GUIDED PERCUTANEOUS LUNG BIOPSY OF THE LEFT LOWER LOBE PLEURAL LESION. Chest X-Ray 07/19/17 08:39 IMPRESSION: INCREASED MULTIFOCAL AIRSPACE DISEASE WITH BILATERAL PLEURAL EFFUSIONS. Assessment & Plan - Diagnosis (1) Congestive heart failure (CHF) Qualifiers: Heart failure type: diastolic Heart failure chronicity: chronic Qualified Code(s): I50.32 - Chronic diastolic (congestive) heart failure Is this a current diagnosis for this admission?: Yes (2) Atrial fibrillation Qualifiers: Atrial fibrillation type: unspecified Qualified Code(s): I48.91 - Unspecified atrial fibrillation Is this a current diagnosis for this admission?: Yes (3) Bilateral pleural effusion Is this a current diagnosis for this admission?: Yes (4) Chronic respiratory failure Qualifiers: Respiratory failure complication: hypoxia Qualified Code(s): J96.11 - Chronic respiratory failure with hypoxia Is this a current diagnosis for this admission?: Yes (5) Hypertension Qualifiers: Hypertension type: essential hypertension Qualified Code(s): I10 - Essential (primary) hypertension Is this a current diagnosis for this admission?: Yes (6) Leg swelling Is this a current diagnosis for this admission?: Yes (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 Qualifiers: Laterality: unspecified laterality Qualified Code(s): C78.00 - Secondary malignant neoplasm of unspecified lung; C64.9 - Malignant neoplasm of unspecified kidney, except renal pelvis; C64.9 - Malignant neoplasm of unspecified kidney, except renal pelvis; C64.9 - Malignant neoplasm of unspecified kidney, except renal pelvis; C64.9 - Malignant neoplasm of unspecified kidney, except renal pelvis Is this a current diagnosis for this admission?: Yes (8) Pulmonary hypertension Is this a current diagnosis for this admission?: Yes (9) Chronic kidney disease Qualifiers: Chronic kidney disease stage: unspecified stage Qualified Code(s): N18.9 - Chronic kidney disease, unspecified Is this a current diagnosis for this admission?: Yes - Notes Notes: Patient has progressively worsened over the last several day. BUN and creatinine are worsening. Dyspnea worsening. Lung exam worsening. Patient was made a DNR and now efforts are being made for patient to be comfort care. At this point will sign off. - Time Time with patient: Less than 15 minutes - CODE STATUS : was discussed, patient remains DO NOT RESUSCITATE. Surrogate decision-maker patient's . Medications reviewed and adjusted accordingly: Yes
== END 2017-07-22 14:00 | DRG 180 ==
LOC: RAD 08:52 → 4N 08:52 → RAD 16:44 → 4N 16:44 → EDSTATUS 17:03
PROVIDERS: ADMIT Internal Medicine Medical Oncology; ATTEND Internal Medicine Medical Oncology
PROC: 0W9B00Z Drainage of Left Pleural Cavity with Drainage Device, Open Approach (ICD-10-PCS; 2017-07-01)
PROC: 0W9B3ZX Drainage of Left Pleural Cavity, Percutaneous Approach, Diagnostic (ICD-10-PCS; 2017-07-01)
PROC: 3E0F73Z Introduction of Anti-inflammatory into Respiratory Tract, Via Natural or Artificial Opening (ICD-10-PCS; 2017-07-01)
PROC: 0BPLX0Z Removal of Drainage Device from Left Lung, External Approach (ICD-10-PCS; 2017-07-05)
PROC: 0W9B00Z Drainage of Left Pleural Cavity with Drainage Device, Open Approach (ICD-10-PCS; principal; 2017-07-08 17:00)
PROC: 0BDJ4ZX Extraction of Left Lower Lung Lobe, Percutaneous Endoscopic Approach, Diagnostic (ICD-10-PCS; 2017-07-10)
DX: C78.02 Secondary malignant neoplasm of left lung (principal); J18.1 Lobar pneumonia, unspecified organism; C64.9 Malignant neoplasm of unspecified kidney, except renal pelvis; J96.11 Chronic respiratory failure with hypoxia; I50.32 Chronic diastolic (congestive) heart failure; I13.0 Hypertensive heart and chronic kidney disease with heart failure and stage 1 through stage 4 chronic kidney disease, or unspecified chronic kidney disease; J91.0 Malignant pleural effusion; Z66 Do not resuscitate; Z51.5 Encounter for palliative care; J93.83 Other pneumothorax; I48.91 Unspecified atrial fibrillation; E03.9 Hypothyroidism, unspecified; M19.90 Unspecified osteoarthritis, unspecified site; D64.9 Anemia, unspecified; I27.20 Pulmonary hypertension, unspecified; I49.9 Cardiac arrhythmia, unspecified; I25.10 Atherosclerotic heart disease of native coronary artery without angina pectoris; N40.0 Benign prostatic hyperplasia without lower urinary tract symptoms; H35.30 Unspecified macular degeneration; E87.5 Hyperkalemia; G47.00 Insomnia, unspecified; R60.9 Edema, unspecified; N18.9 Chronic kidney disease, unspecified; Z79.01 Long term (current) use of anticoagulants; Z87.891 Personal history of nicotine dependence; Z95.0 Presence of cardiac pacemaker; Z79.899 Other long term (current) drug therapy; Z90.5 Acquired absence of kidney; Z99.81 Dependence on supplemental oxygen; Z82.49 Family history of ischemic heart disease and other diseases of the circulatory system
CPT/HCPCS: 00520; 32405; 32555; 36415; 71045; 71046; 71048; 71250; 77012; 80048; 80053; 82565; 83735; 83880; 84100; 84155; 84443; 84520; 85025; 85027; 85610; 85730; 87070; 87205; 88305; 88341; 88342; 93005; 93010; 93306; 94640; 94762; 94799; G8978-GP; G8979-GP; J0696; J1642; J1650; J1940; J1956; J2060; J2250; J2704; J3010; J3490; J7040; J7050; J7614; J7620; J9228; J9299